=== PATIENT | female | born 1930 | race Caucasian/White ===

== ENCOUNTER 2019-03-14 13:02 | Emergency (ER) | payer MEDICARE ==
--- NOTE | 2019-03-14 13:18 | EDM.PDOC ---
ED HPI GENERAL MEDICAL PROBLEM - General Stated Complaint: POSS PNEUMONIA Time Seen by Provider: 03/14/19 13:14 Source of Information: Reports: Patient History Limitations: Reports: No Limitations - History of Present Illness INITIAL COMMENTS - FREE TEXT/NARRATIVE: c/o L rib pain pt with nonproductive cough x 2d, no fever, had L rib pain today, thinks she may have pneumonia h/o pneumonia x 5, last time 3y ago visiting RN came to house today and heard crackles at [place] (none here) and recommended she come to ED, no temp at home pt says she has "serious" heart problems, cannot name them, says she is on 4 cardiac meds does not get flu vax, never had Pneumovax never smoked, a smoker lives alone, , [place] [address], here with dtr L lat chest, rib/back Pain Score (Numeric/FACES): 4 - Related Data Allergies Allergy/AdvReac Type Severity Reaction Status Date / Time No Known Allergies Allergy Verified 10/15/16 10:17 Home Meds: Home Meds Acetaminophen [Tylenol Extra Strength] 500 mg PO BID 03/14/19 [History] Ascorbic Acid [Vitamin C] 1,000 mg PO BEDTIME 03/14/19 [History] Cholecalciferol (Vitamin D3) [Vitamin D3] 400 unit PO BEDTIME 03/14/19 [History] Clindamycin HCl [Cleocin] 600 mg PO ASDIRECTED PRN 03/14/19 [History] Docusate Sodium 100 mg PO BID PRN 03/14/19 [History] Fluocinolone Acetonide 4 drop TOP ASDIRECTED PRN 03/14/19 [History] Furosemide [Lasix] 40 mg PO DAILY 03/14/19 [History] Isosorbide Mononitrate [Imdur] 30 mg PO BID 03/14/19 [History] Lisinopril [Zestril] 10 mg PO DAILY 03/14/19 [History] Metoprolol Succinate [Toprol XL 100mg] 100 mg PO BEDTIME 03/14/19 [History] Multivitamin [Daily Zachray] 1 tab PO DAILY 03/14/19 [History] Nitrofurantoin Macrocrystal [Macrodantin] 50 mg PO MOWEFR@2100 03/14/19 [History ] Nitroglycerin 0.4 mg SL Q5M PRN 03/14/19 [History] Peppermint Oil Cap 1 cap PO BEDTIME 03/14/19 [History] Spironolactone [Aldactone] 12.5 mg PO DAILY 03/14/19 [History] Triamcinolone Acetonide [Triamcinolone Acetonide 0.1% Crm] 1 applic TOP BID PRN 03/14/19 [History] Ubidecarenone [Coenzyme Q10] 100 mg PO QPM 03/14/19 [History] Warfarin [Coumadin] 2.5 mg PO FR 03/14/19 [History] Warfarin [Coumadin] 5 mg PO SUMOTUWETHSA 03/14/19 [History] ED ROS GENERAL - Review of Systems Review Of Systems: See Below Constitutional: Reports: No Symptoms HEENT: Reports: No Symptoms Respiratory: Reports: Shortness of Breath, Cough Cardiovascular: Reports: Other (L rib pain) Endocrine: Reports: No Symptoms GI/Abdominal: Reports: No Symptoms : Reports: No Symptoms Musculoskeletal: Reports: No Symptoms Skin: Reports: No Symptoms Neurological: Reports: No Symptoms Psychiatric: Reports: No Symptoms Hematologic/Lymphatic: Reports: No Symptoms Immunologic: Reports: No Symptoms ED EXAM, GENERAL - Physical Exam Exam: See Below Exam Limited By: No Limitations General Appearance: Alert, WD/WN, No Apparent Distress, Other (alert, conversant , talkative, nonill, no cough, no dyspnea) Eye Exam: Bilateral Eye: EOMI Ears: Normal External Exam, Hearing Grossly Normal Nose: Normal Inspection, Normal Mucosa, No Blood Throat/Mouth: Normal Inspection, Normal Lips, Normal Voice, No Airway Compromise Head: Atraumatic, Normocephalic Neck: Normal Inspection, Supple, Non-Tender, Full Range of Motion. No: Lymphadenopathy (R), Lymphadenopathy (L) Respiratory/Chest: No Respiratory Distress, Lungs Clear, Normal Breath Sounds, No Accessory Muscle Use, Chest Non-Tender, Other (no definite tender at rib 10 in L AAL where pt indicates discomfort, no rales there either) Cardiovascular: Normal Peripheral Pulses, Regular Rate, Rhythm, No Edema, No Gallop, No JVD, No Murmur, No Rub, JVD GI/Abdominal: Normal Bowel Sounds, Soft, Non-Tender, No Distention Back Exam: Normal Inspection, Full Range of Motion. No: CVA Tenderness (R), CVA Tenderness (L) Extremities: Normal Inspection, Normal Range of Motion, Non-Tender, No Pedal Edema, Normal Capillary Refill Neurological: Alert, Oriented, CN II-XII Intact, Normal Cognition, No Motor/ Sensory Deficits Psychiatric: Normal Affect, Normal Mood Skin Exam: Warm, Dry, Intact, Normal Color, No Rash Lymphatic: No Adenopathy Course - Vital Signs Last Recorded V/S: Last Vital Signs Temp 36.6 C 03/14/19 15:20 Pulse 87 03/14/19 15:20 Resp 18 03/14/19 15:20 BP 121/76 03/14/19 15:20 Pulse Ox 98 03/14/19 15:20 - Orders/Labs/Meds Orders: Active Orders 24 hr Category Date Time Status EKG Documentation Completion [RC] ASDIRECTED Care 03/14/19 13:12 Active Abdomen 2V AP Flat Upright [CR] Stat Exams 03/14/19 13:10 Taken Chest 2V [CR] Stat Exams 03/14/19 13:10 Taken EKG 12 Lead [EK] Routine Ther 03/14/19 13:10 Ordered Labs: Laboratory Tests 03/14/19 03/14/19 03/14/19 Range/Units 13:25 13:25 13:25 WBC 5.2 (4.5-12.0) X10-3/uL RBC 3.91 (3.23-5.20) x10(6)uL Hgb 12.6 (11.5-15.5) g/dL Hct 37.1 (30.0-51.3) % MCV 95.0 (80-96) fL MCH 32.2 (27.7-33.6) pg MCHC 33.8 (32.2-35.4) g/dL RDW 12.0 (11.5-15.5) % Plt Count 170 (125-369) X10(3)uL MPV 9.6 (7.4-10.4) fL Neut % (Auto) 57.9 (46-82) % Lymph % (Auto) 25.3 (13-37) % Ware % (Auto) 11.1 (4-12) % Eos % (Auto) 4 (1.0-5.0) % Baso % (Auto) 2 (0-2) % Neut # (Auto) 3.0 (1.6-8.3) # Lymph # (Auto) 1.3 (0.6-5.0) # Ware # (Auto) 0.6 (0.0-1.3) # Eos # (Auto) 0.2 (0.0-0.8) # Baso # (Auto) 0.1 (0.0-0.2) # PT (8.7-11.1) INR (0.89-1.13) Sodium 131 L (135-145) mmol/L Potassium 5.5 H (3.5-5.3) mmol/L Chloride 92 L D (100-110) mmol/L Carbon Dioxide 33 H (21-32) mmol/L BUN 36 H D (7-18) mg/dL Creatinine 1.5 H (0.55-1.02) mg/dL Est Cr Clr Drug Dosing TNP Estimated GFR (MDRD) 33 L (>60) BUN/Creatinine Ratio 24.0 H (9-20) Glucose 170 H (80-116) mg/dL Calcium 9.4 (8.6-10.2) mg/dL Total Bilirubin 0.4 (0.1-1.3) mg/dL AST 17 (5-25) IU/L ALT 17 (12-36) U/L Alkaline Phosphatase 56 (56-112) IU/L Troponin I < 0.017 L (<0.017-0.056) ng/mL C-Reactive Protein 2.4 H (0.5-0.9) mg/dL NT-Pro-B Natriuret Pep 3894 H* (<=450) pg/mL Total Protein 7.5 (6.0-8.0) g/dL Albumin 3.7 (3.2-4.6) g/dL Globulin 3.8 g/dL Albumin/Globulin Ratio 1.0 Lipase (73-393) U/L Urine Color (YELLOW) Urine Appearance (CLEAR) Urine pH (5.0-6.5) Ur Specific [place] (1.010-1.025) Urine Protein (NEGATIVE) mg/dL Urine Glucose (UA) (NORMAL) mg/dL Urine Ketones (NEGATIVE) mg/dL Urine Occult Blood (NEGATIVE) Urine Nitrite (NEGATIVE) Urine Bilirubin (NEGATIVE) Urine Urobilinogen (NEGATIVE) mg/dL Ur Leukocyte Esterase (NEGATIVE) Urine RBC (0-5) Urine WBC (0-5) Ur Squamous Epith Cells (NS,R,O) Urine Bacteria (NS) 03/14/19 03/14/19 03/14/19 Range/Units 13:25 13:25 15:12 WBC (4.5-12.0) X10-3/uL RBC (3.23-5.20) x10(6)uL Hgb (11.5-15.5) g/dL Hct (30.0-51.3) % MCV (80-96) fL MCH (27.7-33.6) pg MCHC (32.2-35.4) g/dL RDW (11.5-15.5) % Plt Count (125-369) X10(3)uL MPV (7.4-10.4) fL Neut % (Auto) (46-82) % Lymph % (Auto) (13-37) % Ware % (Auto) (4-12) % Eos % (Auto) (1.0-5.0) % Baso % (Auto) (0-2) % Neut # (Auto) (1.6-8.3) # Lymph # (Auto) (0.6-5.0) # Ware # (Auto) (0.0-1.3) # Eos # (Auto) (0.0-0.8) # Baso # (Auto) (0.0-0.2) # PT 51.5 H* (8.7-11.1) INR 5.40 H* (0.89-1.13) Sodium (135-145) mmol/L Potassium (3.5-5.3) mmol/L Chloride (100-110) mmol/L Carbon Dioxide (21-32) mmol/L BUN (7-18) mg/dL Creatinine (0.55-1.02) mg/dL Est Cr Clr Drug Dosing Estimated GFR (MDRD) (>60) BUN/Creatinine Ratio (9-20) Glucose (80-116) mg/dL Calcium (8.6-10.2) mg/dL Total Bilirubin (0.1-1.3) mg/dL AST (5-25) IU/L ALT (12-36) U/L Alkaline Phosphatase (56-112) IU/L Troponin I (<0.017-0.056) ng/mL C-Reactive Protein (0.5-0.9) mg/dL NT-Pro-B Natriuret Pep (<=450) pg/mL Total Protein (6.0-8.0) g/dL Albumin (3.2-4.6) g/dL Globulin g/dL Albumin/Globulin Ratio Lipase 243 (73-393) U/L Urine Color Yellow (YELLOW) Urine Appearance Clear (CLEAR) Urine pH 7.0 H (5.0-6.5) Ur Specific [place] 1.010 (1.010-1.025) Urine Protein Negative (NEGATIVE) mg/dL Urine Glucose (UA) Normal (NORMAL) mg/dL Urine Ketones Negative (NEGATIVE) mg/dL Urine Occult Blood Negative (NEGATIVE) Urine Nitrite Negative (NEGATIVE) Urine Bilirubin Negative (NEGATIVE) Urine Urobilinogen Normal (NEGATIVE) mg/dL Ur Leukocyte Esterase Negative (NEGATIVE) Urine RBC 0-5 (0-5) Urine WBC 0-5 (0-5) Ur Squamous Epith Cells Few H (NS,R,O) Urine Bacteria Rare H (NS) - Re-Assessments/Exams Free Text/Narrative Re-Assessment/Exam: 03/14/19 16:31 exam unremarkable, pt with new inc'd BUN/creat c/w dehydration, however pt states her weight has not changed (which is somewhat doubtful where this is true ) on 2 diuretics, will stop the furosemide for 2d and continue the spironolactone also on lisinopril which may need to be adjusted altho further adjustments in diuretics may be sufficient pending recommendations of PCP PCP Dr Ryder is out of office for 5d, d/w Dr Solano who left a note on the desk of Dr Aleksey Chauhan RN offered to make appointment with Dr Ryder in 5-6d, however pt declined saying "I just call him up whenever I want" I offered a cough suppressant, however pt declined that as well mild increase of CRP of uncertain clinical sig, no clinical evidence of infection Departure - Departure Time of Disposition: 16:23 Disposition: Home, Self-Care 01 Condition: Good Clinical Impression: Chest wall muscle strain, Acute renal insufficiency, Elevated brain natriuretic peptide (BNP) level, Elevated INR, Elevated C-reactive protein - Discharge Information *PRESCRIPTION DRUG MONITORING PROGRAM REVIEWED*: Not Applicable *COPY OF PRESCRIPTION DRUG MONITORING REPORT IN PATIENT SAVITA: Not Applicable Referrals: Jacky Ryder MD [Primary Care Provider] - Additional Instructions: Stop the furosemide for 2 days. Use heat for 10 minutes to chest wall every 2 hours as needed while awake. Take acetaminophen 500 mg 2 tabs 4 times a day for [address] Ryder in 5-6 days. Return to Emergency Department if feeling worse. Sepsis Event Note - Focused Exam Vital Signs: Vital Signs Temp Pulse Resp BP Pulse Ox 03/14/19 15:20 36.6 C 87 18 121/76 98 03/14/19 14:00 79 20 139/95 H 97 03/14/19 13:30 36.3 C 83 24 H 152/109 H 100 Date Exam was Performed: 03/14/19 Time Exam was Performed: 16:23 - My Orders Last 24 Hours: My Active Orders 03/14/19 13:10 Abdomen 2V AP Flat Upright [CR] Stat Chest 2V [CR] Stat EKG 12 Lead [EK] Routine 03/14/19 13:12 EKG Documentation Completion [RC] ASDIRECTED - Assessment/Plan Last 24 Hours: My Active Orders 03/14/19 13:10 Abdomen 2V AP Flat Upright [CR] Stat Chest 2V [CR] Stat EKG 12 Lead [EK] Routine 03/14/19 13:12 EKG Documentation Completion [RC] ASDIRECTED
== END 2019-03-14 16:30 | disposition home or self-care (01) ==
LOC: FB.ED 13:02
DX: S29.011A Strain of muscle and tendon of front wall of thorax, initial encounter (principal); N28.9 Disorder of kidney and ureter, unspecified; R79.1 Abnormal coagulation profile; R79.82 Elevated C-reactive protein (CRP); R79.89 Other specified abnormal findings of blood chemistry; Z79.899 Other long term (current) drug therapy; X58.XXXA Exposure to other specified factors, initial encounter
CPT/HCPCS: 36415; 71046; 74019; 80053; 81001; 83690; 83880; 84484; 85025; 85610; 86140; 87804; 87804-59; 93005; 93010; 99284; 99284-25

== ENCOUNTER 2019-10-25 12:09 | Inpatient (IN) | payer MEDICARE ==
[2019-10-25] MEDS ORDERED: Diltiazem 25 MG/5 ML SDV IVPUSH ONE (14:25)
[2019-10-25] MEDS ORDERED: Aspirin 81 MG Tab.Chew PO ONE (14:25)
[2019-10-25] MEDS ORDERED: Morphine 2 MG/ML SYRINGE IVPUSH ONE (14:26)
--- NOTE | 2019-10-25 14:40 | CR ---
INDICATION: Chest pain, Parkinson's, shortness of breath. CHEST ONE VIEW: A single portable AP upright view of the chest was obtained 10/25/19 and compared with 05/20/10 and 03/14/19. The heart is enlarged, the aorta is tortuous with calcification. Overlying EKG leads and snaps are noted. Pulmonary vasculature appears slightly prominent raising question of a mild degree of CHF. Heavy markings at the lung bases due to a poor inspiration, at least in part, make it difficult to exclude minimal patchy bronchopneumonia. However, no consolidating pneumonia or definite effusion was seen. IMPRESSION: 1. ASHD with cardiomegaly with suggestion of mild or early CHF. 2. Difficult to entirely exclude patchy bronchopneumonia at the lung bases. 3. Exogenous obesity. MTDD
[2019-10-25] MEDS ORDERED: Diatrizoate Meglumine/Diatrizoate Sodium 37% 30 ML Bottle PO ONE (15:41)
--- NOTE | 2019-10-25 15:43 | EDM.PDOC ---
ED HPI GENERAL MEDICAL PROBLEM - General Chief Complaint: Cardiovascular Problem Time Seen by Provider: 10/25/19 14:55 Source of Information: Reports: Patient History Limitations: Reports: No Limitations - History of Present Illness INITIAL COMMENTS - FREE TEXT/NARRATIVE: Patient presented to the ED because of chest pain,nausea and palpitations for the past 4 days. She also c/o LLQ and RLQ pain,6/10, with occasional nausea but no vomiting and she is constipated for 2 days now. There is no cough/cold symptoms, no fever or chills. left chest Pain Score (Numeric/FACES): 6 Abdomen Pain Score (Numeric/FACES): 5 Back Pain Score (Numeric/FACES): 5 - Related Data Allergies Allergy/AdvReac Type Severity Reaction Status Date / Time Penicillins Allergy Rash Verified 10/25/19 19:22 Sulfa (Sulfonamide Allergy Rash Verified 10/25/19 19:22 Antibiotics) Home Meds: Home Meds Acetaminophen [Tylenol Extra Strength] 500 mg PO BID 03/14/19 [History] Docusate Sodium 100 mg PO BID PRN 03/14/19 [History] Fluocinolone Acetonide 4 drop TOP ASDIRECTED PRN 03/14/19 [History] Furosemide [Lasix] 40 mg PO DAILY 03/14/19 [History] Isosorbide Mononitrate [Imdur] 90 mg PO QAM 03/14/19 [History] Metoprolol Succinate [Toprol XL 100mg] 100 mg PO BEDTIME 03/14/19 [History] Multivitamin [Daily Zachary] 1 tab PO DAILY 03/14/19 [History] Nitroglycerin 0.4 mg SL Q5M PRN 03/14/19 [History] Peppermint Oil Cap 1 cap PO BEDTIME 03/14/19 [History] Triamcinolone Acetonide [Triamcinolone Acetonide 0.1% Crm] 1 applic TOP BID PRN 03/14/19 [History] Ubidecarenone [Coenzyme Q10] 100 mg PO DAILY 03/14/19 [History] Warfarin [Coumadin] 5 mg PO QAM 03/14/19 [History] lisinopriL [Zestril] 10 mg PO DAILY 03/14/19 [History] nitrofurantoin macrocrystaL [Macrodantin] 50 mg PO MOWEFR@2100 12/31/19 [History] Mv-Mn/Iron/Folic Acid/Herb 190 [Vitamin D3 Complete Caplet] 1 tab PO DAILY 10/25/19 [History] Past Medical History HEENT History: Reports: Glaucoma, Macular Degeneration Cardiovascular History: Reports: Afib, Heart Failure, Hypertension, [place], Stents Respiratory History: Reports: Pneumonia, Recurrent Gastrointestinal History: Reports: Diverticulosis Genitourinary History: Reports: None [employer] History: Reports: Other [employer] History: Musculoskeletal History: Reports: Arthritis Neurological History: Reports: Concussion, CVA, Migraines, Parkinson's, Vertigo Other Neuro History: CVA with L sided weakness Psychiatric History: Reports: Anxiety, Depression Endocrine/Metabolic History: Reports: Diabetes, Type II, Obesity/BMI 30+ Hematologic History: Reports: Anticoagulation Therapy - Infectious Disease History Infectious Disease History: Reports: Shingles - Past Surgical History HEENT Surgical History: Reports: Cataract Surgery Other HEENT Surgeries/Procedures: bilat cataract Cardiovascular Surgical History: Reports: Coronary Artery Stent GI Surgical History: Reports: Colonoscopy, Other (See Below) Other GI Surgeries/Procedures: exp lap Female Surgical History: Reports: Hysterectomy Social & Family History - Family History Family Medical History: Noncontributory - Caffeine Use Caffeine Use: Reports: Coffee, Soda ED ROS GENERAL - Review of Systems Review Of Systems: See Below Constitutional: Reports: No Symptoms HEENT: Reports: No Symptoms Respiratory: Reports: No Symptoms Cardiovascular: Reports: Chest Pain, Palpitations. Denies: Lightheadedness, Orthopnea Endocrine: Reports: No Symptoms GI/Abdominal: Reports: Constipation, Nausea. Denies: Diarrhea, Vomiting : Reports: No Symptoms Musculoskeletal: Reports: No Symptoms Skin: Reports: No Symptoms Neurological: Reports: No Symptoms Psychiatric: Reports: No Symptoms ED EXAM, GENERAL - Physical Exam Exam: See Below Exam Limited By: No Limitations General Appearance: Alert, No Apparent Distress Eye Exam: Bilateral Eye: PERRL Ears: Normal External Exam Nose: Normal Inspection Throat/Mouth: Normal Inspection Head: Atraumatic, Normocephalic Neck: Normal Inspection, Supple, Non-Tender Respiratory/Chest: No Respiratory Distress, Lungs Clear, Normal Breath Sounds Cardiovascular: Normal Peripheral Pulses, Regular Rate, Rhythm, No Edema, No Gallop, No JVD, No Murmur Back Exam: Normal Inspection, Full Range of Motion Extremities: Normal Inspection, Normal Range of Motion, Non-Tender Neurological: Alert, Oriented, CN II-XII Intact, Normal Cognition, Normal Gait, Normal Reflexes, No Motor/Sensory Deficits Psychiatric: Normal Affect, Normal Mood Course - Vital Signs Text/Narrative:: Labs/EKG/CXR/Ct abs/pelvis was discussed with patient and verbalized full understanding EKG-AFIB/A FLUTTER with RVR Cardizem 25 mg IV x1 Morphine 2 mg IV x1 Lasix 40 mg IV Zaroxolyn 2.5 mg po x1 Rocephine 1 gm IV x1 Flagyl 500 mg IV x1 Last Recorded V/S: Last Vital Signs Temp 36.4 C 10/26/19 00:00 Pulse 60 10/26/19 00:00 Resp 18 10/26/19 00:00 BP 135/87 10/26/19 00:00 Pulse Ox 99 10/26/19 00:00 - Orders/Labs/Meds Orders: Active Orders 24 hr Category Date Time Status Patient Status [ADT] Routine ADT 10/25/19 18:05 Active Cardiac Monitoring [RC] CONTINUOUS Care 10/25/19 18:11 Active Intake and Output [RC] 06,14,22 Care 10/25/19 18:11 Active Oxygen Therapy [RC] PRN Care 10/25/19 18:05 Active Pulse Oximetry [RC] CONTINUOUS Care 10/25/19 18:11 Active Vital Signs [RC] 00,04,08,12,16,20 Care 10/25/19 18:05 Active Heart Healthy Diet [DIET] Diet 10/25/19 Dinner Ordered BASIC METABOLIC PANEL,BMP [CHEM] AM Lab 10/26/19 05:11 Ordered CBC WITH AUTO DIFF [HEME] AM Lab 10/26/19 05:11 Ordered INR,PT,PROTHROMBIN TIME [COAG] AM Lab 10/26/19 05:11 Ordered Ondansetron [Zofran] Med 10/25/19 18:04 Active 4 mg IV Q4H PRN Sodium Chloride 0.9% [Saline Flush] Med 10/25/19 13:13 Active 10 ml FLUSH ASDIRECTED PRN bisacodyL [Dulcolax] Med 10/25/19 18:04 Active 5 mg PO DAILY PRN Saline Lock Insert [OM.PC] Routine Oth 10/25/19 13:13 Ordered Resuscitation Status Routine Resus Stat 10/25/19 18:04 Ordered EKG 12 Lead [EK] Routine Ther 10/25/19 12:19 Ordered Medication Orders Acetaminophen (Tylenol Extra Strength) 500 mg PO BID [facility] Last Admin: 10/25/19 20:29 Dose: 500 mg Documented by: GARCIA Ascorbic Acid (Vitamin C) 1,000 mg PO BEDTIME [facility] Last Admin: 10/25/19 20:28 Dose: 1,000 mg Documented by: GARCIA Bisacodyl (Dulcolax) 5 mg PO DAILY PRN PRN Reason: Constipation Ceftriaxone Sodium (Rocephin) 1 gm IVPUSH Q24H [facility] Last Admin: 10/25/19 19:19 Dose: 1 gm Documented by: RICHARDSON Coenzyme Q10 (Coenzyme Q10) 100 mg PO QPM IFTIKHAR Docusate Sodium (Colace) 100 mg PO BID PRN PRN Reason: Constipation Furosemide (Lasix) 40 mg IVPUSH BID [facility] Last Admin: 10/25/19 19:19 Dose: 40 mg Documented by: RICHARDSON Metronidazole 500 mg/ Premix 100 mls @ 100 mls/hr IV Q8H [facility] Last Admin: 10/25/19 19:19 Dose: 100 mls/hr Documented by: RICHARDSON Isosorbide Mononitrate (Imdur) 30 mg PO BID [facility] Metoprolol Succinate (Toprol Xl) 100 mg PO BEDTIME [facility] Last Admin: 10/25/19 20:29 Dose: 100 mg Documented by: GARCIA Multivitamins/Minerals/Vitamin C (Tab-A-Zachary) 1 tab PO DAILY [facility] Nitroglycerin (Nitrostat) 0.4 mg SL Q5M PRN PRN Reason: Chest Pain Non-Formulary Medication (Cholecalciferol (Vitamin D3) [Vitamin D3]) 400 unit PO BEDTIME IFTIKHAR Non-Formulary Medication (Fluocinolone Acetonide [Fluocinolone Acetonide]) 4 drop TOP ASDIRECTED PRN PRN Reason: Dizziness Non-Formulary Medication (Peppermint Oil Cap) 1 cap PO BEDTIME [facility] Ondansetron HCl (Zofran) 4 mg IV Q4H PRN PRN Reason: Nausea/Vomiting Sodium Chloride (Saline Flush) 10 ml FLUSH ASDIRECTED PRN PRN Reason: Keep Vein Open Spironolactone (Aldactone) 12.5 mg PO DAILY IFTIKHAR Triamcinolone Acetonide (Triamcinolone Acetonide 0.1% Crm) 0 gm TOP BID PRN PRN Reason: Rash Warfarin Sodium (Coumadin) 2.5 mg PO FR IFTIKHAR Warfarin Sodium (Coumadin) 5 mg PO SUMOTUWETHSA [facility] Labs: Laboratory Tests 10/25/19 10/25/19 10/25/19 Range/Units 12:30 12:30 12:30 WBC 6.3 (4.5-12.0) X10-3/uL RBC 3.86 (3.23-5.20) x10(6)uL Hgb 12.2 (11.5-15.5) g/dL Hct 37.2 (30.0-51.3) % MCV 96.3 H (80-96) fL MCH 31.6 (27.7-33.6) pg MCHC 32.8 (32.2-35.4) g/dL RDW 12.3 (11.5-15.5) % Plt Count 156 (125-369) X10(3)uL MPV 10.1 (7.4-10.4) fL Neut % (Auto) 72.4 (46-82) % Lymph % (Auto) 15.4 (13-37) % [place] % (Auto) 8.4 (4-12) % Eos % (Auto) 2 (1.0-5.0) % Baso % (Auto) 2 (0-2) % Neut # (Auto) 4.6 (1.6-8.3) # Lymph # (Auto) 1.0 (0.6-5.0) # [place] # (Auto) 0.5 (0.0-1.3) # Eos # (Auto) 0.1 (0.0-0.8) # Baso # (Auto) 0.1 (0.0-0.2) # PT 32.1 H (9.0-11.1) sec INR 3.21 H (1.00-1.24) Sodium 135 (135-145) mmol/L Potassium 4.5 D (3.5-5.3) mmol/L Chloride 97 L D (100-110) mmol/L Carbon Dioxide 28 (21-32) mmol/L BUN 15 D (7-18) mg/dL Creatinine 1.3 H (0.55-1.02) mg/dL Est Cr Clr Drug Dosing TNP Estimated GFR (MDRD) 39 L (>60) BUN/Creatinine Ratio 11.5 (9-20) Glucose 380 H D (80-116) mg/dL Calcium 8.7 (8.6-10.2) mg/dL Total Bilirubin 0.6 (0.1-1.3) mg/dL AST 21 D (5-25) IU/L ALT 21 D (12-36) U/L Alkaline Phosphatase 69 (56-112) IU/L Troponin I (4.0-60.3) pg/mL NT-Pro-B Natriuret Pep (<=450) pg/mL Total Protein 7.2 (6.0-8.0) g/dL Albumin 3.5 (3.2-4.6) g/dL Globulin 3.7 g/dL Albumin/Globulin Ratio 1.0 Urine Color (YELLOW) Urine Appearance (CLEAR) Urine pH (5.0-6.5) Ur Specific [employer] (1.010-1.025) Urine Protein (NEGATIVE) mg/dL Urine Glucose (UA) (NORMAL) mg/dL Urine Ketones (NEGATIVE) mg/dL Urine Occult Blood (NEGATIVE) Urine Nitrite (NEGATIVE) Urine Bilirubin (NEGATIVE) Urine Urobilinogen (NEGATIVE) mg/dL Ur Leukocyte Esterase (NEGATIVE) Urine RBC (0-5) Urine WBC (0-5) Ur Squamous Epith Cells (NS,R,O) Urine Bacteria (NS) 10/25/19 10/25/19 Range/Units 12:30 13:28 WBC (4.5-12.0) X10-3/uL RBC (3.23-5.20) x10(6)uL Hgb (11.5-15.5) g/dL Hct (30.0-51.3) % MCV (80-96) fL MCH (27.7-33.6) pg MCHC (32.2-35.4) g/dL RDW (11.5-15.5) % Plt Count (125-369) X10(3)uL MPV (7.4-10.4) fL Neut % (Auto) (46-82) % Lymph % (Auto) (13-37) % [place] % (Auto) (4-12) % Eos % (Auto) (1.0-5.0) % Baso % (Auto) (0-2) % Neut # (Auto) (1.6-8.3) # Lymph # (Auto) (0.6-5.0) # Laurens # (Auto) (0.0-1.3) # Eos # (Auto) (0.0-0.8) # Baso # (Auto) (0.0-0.2) # PT (9.0-11.1) sec INR (1.00-1.24) Sodium (135-145) mmol/L Potassium (3.5-5.3) mmol/L Chloride (100-110) mmol/L Carbon Dioxide (21-32) mmol/L BUN (7-18) mg/dL Creatinine (0.55-1.02) mg/dL Est Cr Clr Drug Dosing Estimated GFR (MDRD) (>60) BUN/Creatinine Ratio (9-20) Glucose (80-116) mg/dL Calcium (8.6-10.2) mg/dL Total Bilirubin (0.1-1.3) mg/dL AST (5-25) IU/L ALT (12-36) U/L Alkaline Phosphatase (56-112) IU/L Troponin I 28.7 (4.0-60.3) pg/mL NT-Pro-B Natriuret Pep 7980 H* (<=450) pg/mL Total Protein (6.0-8.0) g/dL Albumin (3.2-4.6) g/dL Globulin g/dL Albumin/Globulin Ratio Urine Color Yellow (YELLOW) Urine Appearance Clear (CLEAR) Urine pH 5.0 (5.0-6.5) Ur Specific [employer] 1.015 (1.010-1.025) Urine Protein Negative (NEGATIVE) mg/dL Urine Glucose (UA) >1000 H (NORMAL) mg/dL Urine Ketones Negative (NEGATIVE) mg/dL Urine Occult Blood Trace (NEGATIVE) Urine Nitrite Negative (NEGATIVE) Urine Bilirubin Negative (NEGATIVE) Urine Urobilinogen Normal (NEGATIVE) mg/dL Ur Leukocyte Esterase Negative (NEGATIVE) Urine RBC 0-5 (0-5) Urine WBC 0-5 (0-5) Ur Squamous Epith Cells Moderate H (NS,R,O) Urine Bacteria Moderate H (NS) Meds: Medications Generic Name Dose Route Start Last Admin Trade Name Freq PRN Reason Stop Dose Admin Acetaminophen 500 mg 10/25/19 21:00 10/25/19 20:29 Tylenol Extra Strength PO 500 mg BID IFTIKHAR Administration Ascorbic Acid 1,000 mg 10/25/19 21:00 10/25/19 20:28 Vitamin C PO 1,000 mg BEDTIME IFTIKHAR Administration Bisacodyl 5 mg 10/25/19 18:04 Dulcolax PO DAILY PRN Constipation Ceftriaxone Sodium 1 gm 10/25/19 18:30 10/25/19 19:19 Rocephin IVPUSH 1 gm Q24H IFTIKHAR Administration Coenzyme Q10 100 mg 10/26/19 17:00 Coenzyme Q10 PO QPM IFTIKHAR Docusate Sodium 100 mg 10/25/19 18:15 Colace PO BID PRN Constipation Furosemide 40 mg 10/25/19 21:00 10/25/19 19:19 Lasix IVPUSH 40 mg BID [facility] Administration Metronidazole 500 mg/ Premix 100 mls @ 100 mls/hr 10/25/19 18:30 10/25/19 19:19 IV 100 mls/hr Q8H IFTIKHAR Administration Isosorbide Mononitrate 30 mg 10/25/19 21:00 Imdur PO BID [facility] Metoprolol Succinate 100 mg 10/25/19 21:00 10/25/19 20:29 Toprol Xl PO 100 mg BEDTIME IFTIKHAR Administration Multivitamins/Minerals/Vitamin C 1 tab 10/26/19 09:00 Tab-A-Zachary PO DAILY [facility] Nitroglycerin 0.4 mg 10/25/19 18:15 Nitrostat SL Q5M PRN Chest Pain Non-Formulary Medication 400 unit 10/25/19 21:00 Cholecalciferol (Vitamin D3) [Vitamin D3] PO BEDTIME IFTIKHAR Non-Formulary Medication 4 drop 10/25/19 18:15 Fluocinolone Acetonide [Fluocinolone Acetonide] TOP ASDIRECTED PRN Dizziness Non-Formulary Medication 1 cap 10/25/19 21:00 Peppermint Oil Cap PO BEDTIME [facility] Ondansetron HCl 4 mg 10/25/19 18:04 Zofran IV Q4H PRN Nausea/Vomiting Sodium Chloride 10 ml 10/25/19 13:13 Saline Flush FLUSH ASDIRECTED PRN Keep Vein Open Spironolactone 12.5 mg 10/26/19 09:00 Aldactone PO DAILY IFTIKHAR Triamcinolone Acetonide 0 gm 10/25/19 18:15 Triamcinolone Acetonide 0.1% Crm TOP BID PRN Rash Warfarin Sodium 2.5 mg 10/27/19 18:15 Coumadin PO FR IFTIKHAR Warfarin Sodium 5 mg 10/25/19 18:15 Coumadin PO SUMOTUWETHSA IFTIKHAR Discontinued Medications Generic Name Dose Route Start Last Admin Trade Name Freq PRN Reason Stop Dose Admin Aspirin 324 mg 10/25/19 14:25 10/25/19 14:54 Aspirin PO 10/25/19 14:26 324 mg ONETIME ONE Administration Diatrizoate Meglum/Diatrizoate Sod 30 ml 10/25/19 15:41 10/25/19 22:37 Gastrografin 37% PO 10/25/19 15:42 Not Given . DIRECTED ONE Diltiazem HCl 25 mg 10/25/19 14:25 10/25/19 14:48 Diltiazem IVPUSH 10/25/19 14:26 25 mg ONETIME ONE Administration Metolazone 2.5 mg 10/25/19 18:20 10/25/19 20:33 Zaroxolyn PO 10/25/19 18:21 2.5 mg ONETIME ONE Administration Metolazone Confirm 10/25/19 20:31 10/25/19 20:34 Zaroxolyn Administered 10/25/19 20:32 Not Given Dose 2.5 mg .ROUTE .STK-MED ONE Morphine Sulfate 2 mg 10/25/19 14:26 10/25/19 14:48 Morphine IVPUSH 10/25/19 14:27 2 mg ONETIME ONE Administration Departure - Departure Time of Disposition: 16:00 Disposition: Admitted As Inpatient 67 Condition: Good Clinical Impression: Chest pain, Afib, Diverticulitis - My Orders Last 24 Hours: My Active Orders 10/25/19 12:19 EKG 12 Lead [EK] Routine 10/25/19 13:13 Sodium Chloride 0.9% [Saline Flush] 10 ml FLUSH ASDIRECTED PRN Saline Lock Insert [OM.PC] Routine 10/25/19 Dinner Heart Healthy Diet [DIET] 10/25/19 18:04 Ondansetron [Zofran] 4 mg IV Q4H PRN bisacodyL [Dulcolax] 5 mg PO DAILY PRN Resuscitation Status Routine 10/25/19 18:05 Patient Status [ADT] Routine Oxygen Therapy [RC] PRN Vital Signs [RC] 00,04,08,12,16,20 10/25/19 18:11 Cardiac Monitoring [RC] CONTINUOUS Intake and Output [RC] 06,14,22 Pulse Oximetry [RC] CONTINUOUS 10/26/19 05:11 BASIC METABOLIC PANEL,BMP [CHEM] AM CBC WITH AUTO DIFF [HEME] AM INR,PT,PROTHROMBIN TIME [COAG] AM - Assessment/Plan Last 24 Hours: My Active Orders 10/25/19 12:19 EKG 12 Lead [EK] Routine 10/25/19 13:13 Sodium Chloride 0.9% [Saline Flush] 10 ml FLUSH ASDIRECTED PRN Saline Lock Insert [OM.PC] Routine 10/25/19 Dinner Heart Healthy Diet [DIET] 10/25/19 18:04 Ondansetron [Zofran] 4 mg IV Q4H PRN bisacodyL [Dulcolax] 5 mg PO DAILY PRN Resuscitation Status Routine 10/25/19 18:05 Patient Status [ADT] Routine Oxygen Therapy [RC] PRN Vital Signs [RC] 00,04,08,12,16,20 10/25/19 18:11 Cardiac Monitoring [RC] CONTINUOUS Intake and Output [RC] 06,14,22 Pulse Oximetry [RC] CONTINUOUS 10/26/19 05:11 BASIC METABOLIC PANEL,BMP [CHEM] AM CBC WITH AUTO DIFF [HEME] AM INR,PT,PROTHROMBIN TIME [COAG] AM
--- NOTE | 2019-10-25 17:53 | CT ---
INDICATION: Left lower and right lower quadrant pain. CT ABDOMEN AND PELVIS WITHOUT IV CONTRAST BUT WITH ORAL CONTRAST: Spiral 3.75 mm axial sections were obtained through the abdomen with oral contrast only 10/25/19 and compared with 10/15/16 CT abdomen and pelvis with oral and IV contrast. The heart is enlarged. No pericardial effusion was seen. There are bilateral pleural effusions, large on the right, moderate on the left with heavy markings at the lung bases which may be on the basis of pneumonia and pleuritis, but could be related to CHF with pleural effusions - correlate clinically. The liver and spleen were unremarkable. The gallbladder is absent compatible with history of its removal. The adrenal glands appeared grossly normal. The pancreas is very minimal in size as previously. The common bile duct was not enlarged. Calcifications are noted in the abdominal aorta, splenic artery, iliac and femoral arteries. There is mild renal fascial thickening with some irregularity of the renal cortices compatible with renal cortical scarring. No evidence of obstructive uropathy was identified. No definite mass of the kidneys was identified. No retroperitoneal masses were demonstrated. The appendix and uterus are absent compatible with their resections. Diverticulosis of the descending, to a lesser extent transverse, and to a much greater extent sigmoid colon is noted without definitive evidence of diverticulitis. No evidence of free air or bowel obstruction was seen. The urinary bladder appeared grossly normal. There is again noted some mild thickening of the gastric antral wall of questionable significance. Small umbilical hernia including only fat is again noted. The patient's right and left lower abdominal pain is not definitely explained, although a mild or early diverticulitis is difficult to entirely exclude with this appearance. A [id number] dextroconcave scoliosis of the lumbar spine is again noted with hypertrophic degenerative changes and disk disease at L2-3, L4-5, L5-S1 again noted. There is some progression of hypertrophic changes at the L2-3 level. IMPRESSION: 1. Diverticulosis coli most notable at the sigmoid, but without definite evidence of diverticulitis. A mild or early diverticulitis is difficult to entirely exclude, especially in the area of the sigmoid colon. 2. 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 3. ASD. 4. ASHD with possible CHF and bilateral pleural effusions, question bibasilar pneumonia and pleuritis additionally. 5. Post hysterectomy, appendectomy, cholecystectomy. 6. Continued appearance of thickening of the wall of the gastric antrum of questionable significance. Report was called to Dr. Dee at 1515 hours. Total exam DLP was 1449.54 mGy-cm. MTDD
[2019-10-25] MEDS ORDERED: Ondansetron 4 MG/2 ML SDV IV PRN (18:04)
[2019-10-25] MEDS ORDERED: Bisacodyl 5 MG Tab PO PRN (18:04)
[2019-10-25] MEDS ORDERED: Triamcinolone Acetonide 0.1% Crm 15 GM Tube TOP PRN (18:15)
[2019-10-25] MEDS ORDERED: Docusate Sodium 100 MG Cap PO PRN (18:15)
[2019-10-25] MEDS ORDERED: Nitroglycerin 0.4 MG Tab.SL SL PRN (18:15)
[2019-10-25] MEDS ORDERED: FLUOCINOLONE ACETONIDE TOP PRN (18:15)
[2019-10-25] MEDS ORDERED: Warfarin 5 MG Tab PO SCH (18:15)
[2019-10-25] MEDS ORDERED: Metolazone 2.5 MG Tab PO ONE (18:20)
[2019-10-25] MEDS: cefTRIAXone 1 GM Vial IVPUSH SCH (19:19)
[2019-10-25] MEDS: Furosemide 40 MG/4 ML VIAL IVPUSH SCH (19:19)
[2019-10-25] MEDS: metroNIDAZOLE/Normal Saline 500 MG in Premix Bag 1 BAG IV SCH (19:19)
[2019-10-25] MEDS: Ascorbic Acid 500 MG Tab PO SCH (20:28)
[2019-10-25] MEDS: Metoprolol Succinate 100 MG Tab.ER PO SCH (20:29)
[2019-10-25] MEDS: Acetaminophen 500 MG Tab PO SCH (20:29)
[2019-10-25] MEDS ORDERED: Metolazone 2.5 MG Tab ONE (20:31)
[2019-10-25] MEDS ORDERED: Non-Formulary Medication 1 Each (Cholecalciferol (Vitamin D3) [Vitamin D3] 400 UNIT) PO SCH (21:00)
[2019-10-25] MEDS ORDERED: PEPPERMINT OIL PO SCH (21:00)
[2019-10-26] MEDS: Sodium Chloride 0.9% 10 ML Syringe FLUSH PRN ×5 (02:41→20:10)
[2019-10-26] MEDS: metroNIDAZOLE/Normal Saline 500 MG in Premix Bag 1 BAG IV SCH ×3 (02:41→18:51)
[2019-10-26] MEDS ORDERED: Warfarin Sliding Scale PO SCH (08:15)
[2019-10-26] MEDS ORDERED: Spironolactone 25 MG Tab PO SCH (09:00)
[2019-10-26] MEDS: Furosemide 40 MG/4 ML VIAL IVPUSH SCH ×2 (09:59→20:07)
[2019-10-26] MEDS: Acetaminophen 500 MG Tab PO SCH ×2 (09:59→20:06)
[2019-10-26] MEDS: Multivitamin Tab PO SCH (09:59)
--- NOTE | 2019-10-26 10:29 | PCM.HP.2 ---
H&P History of Present Illness - General Date of Service: 10/26/19 Admit Problem/Dx: Admission Diagnosis/Problem Admission Diagnosis/Problem Diverticulitis, Atrial fibrillation and flutter, CHF Source of Information: Patient, EMS Notes Reviewed, Family, Old Records - History of Present Illness Initial Comments - Free Text/Narative: Divina was admitted last evening for 4 day history of chest pain with palpitations, shortness of breath. She had no fevers, chills, cough, nausea or diarrhea but had nausea, lower abdominal pain with constipation x 2 days. Had a diarrhea stool this morning after taking stool softener for constipation. Still having some palpitations but no chest pain. She saw Dr Freeman, [facility] in regards to her Atrial fibrillation, CAD, CHF, on 08/28/2019, and she had called him for chest pain/shoulder pain on Oct 15, had instructions to increase her Imdur to 90 mg in am and 30 mg in the afternoon. She has been complaining of more weakness, not getting up as much per her sons, has [facility], [facility] Health, bath aide, housekeeping services through [facility]. Laura Roche RN with [facility] send communication that feels patient needs long-term due to her declining health since May. Divina also states that she was put on a Parkinson's medication but only took 1 pill as it made her heart race. She states she has had tremors since April but her sons stated that she has had for a few years, has worsening this year, some days she doesn't seem to have them. They do live locally but unsure how much they can help her if she would go home. She does have oxygen at home, 3L/min. ER course: was given Cardizem IV for Atrial fibrillation with RVR, heart rate now in 90s, morphine for pain, Lasix, Metolazone for CHF, Rocephin & Flagyl for Diverticulitis in the ER. Had CT abdomen/pelvis showed diverticulosis questionable early diverticulitis. CXR showed mild CHF, questionable pneumonia in bases. WBC was normal. Cr 1.3 today 1.2. BNP was 7980. INR was 3.21 and today 4.03. UA was negative for leukocyte esterase or nitrites but had >1000 glucose. left chest Pain Score (Numeric/FACES): 6 Abdomen Pain Score (Numeric/FACES): 5 Back Pain Score (Numeric/FACES): 5 - Related Data Allergies/Adverse Reactions: Allergies Allergy/AdvReac Type Severity Reaction Status Date / Time Penicillins Allergy Rash Verified 10/25/19 19:22 Sulfa (Sulfonamide Allergy Rash Verified 10/25/19 19:22 Antibiotics) Home Medications: Home Meds Acetaminophen [Tylenol Extra Strength] 500 mg PO DAILY 03/14/19 [History] Docusate Sodium 100 mg PO BID PRN 03/14/19 [History] Fluocinolone Acetonide 4 drop EARBOTH ASDIRECTED PRN 03/14/19 [History] Furosemide [Lasix] 40 mg PO DAILY 03/14/19 [History] Isosorbide Mononitrate [Imdur] 90 mg PO DAILY 03/14/19 [History] Metoprolol Succinate [Toprol XL 100mg] 100 mg PO BEDTIME 03/14/19 [History] Multivitamin [Daily Zachray] 1 tab PO DAILY 03/14/19 [History] Nitroglycerin 0.4 mg SL Q5M PRN 03/14/19 [History] Peppermint Oil Cap 1 cap PO BEDTIME 03/14/19 [History] Triamcinolone Acetonide [Triamcinolone Acetonide 0.1% Crm] 1 applic TOP BID PRN 03/14/19 [History] Ubidecarenone [Coenzyme Q10] 100 mg PO DAILY 03/14/19 [History] Warfarin [Coumadin] 5 mg PO DAILY 03/14/19 [History] lisinopriL [Zestril] 10 mg PO DAILY 03/14/19 [History] nitrofurantoin macrocrystaL [Macrodantin] 50 mg PO MOWEFR@2100 03/14/19 [History] Acetaminophen [Tylenol Extra Strength] 1,000 mg PO BEDTIME 10/26/19 [History] Cholecalciferol (Vitamin D3) [Vitamin D3] 10 mcg PO DAILY 10/26/19 [History] Isosorbide Mononitrate [Imdur] 30 mg PO DAILY@1600 10/26/19 [History] Past Medical History HEENT History: Reports: Glaucoma, Macular Degeneration Cardiovascular History: Reports: Afib, Heart Failure, Hypertension, [place], Stents Respiratory History: Reports: Pneumonia, Recurrent Gastrointestinal History: Reports: Diverticulosis Genitourinary History: Reports: None 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: Other OB/BYN History: Musculoskeletal History: Reports: Arthritis Neurological History: Reports: Concussion, CVA, Migraines, Parkinson's, Vertigo Other Neuro History: CVA with L sided weakness Psychiatric History: Reports: Anxiety, Depression Endocrine/Metabolic History: Reports: Diabetes, Type II, Obesity/BMI 30+ Hematologic History: Reports: Anticoagulation Therapy - Infectious Disease History Infectious Disease History: Reports: Shingles - Past Surgical History HEENT Surgical History: Reports: Cataract Surgery Other HEENT Surgeries/Procedures: bilat cataract Cardiovascular Surgical History: Reports: Coronary Artery Stent GI Surgical History: Reports: Colonoscopy, Other (See Below) Other GI Surgeries/Procedures: exp lap Female Surgical History: Reports: Hysterectomy Social & Family History - Family History Family Medical History: Noncontributory - Tobacco Use Smoking Status *Q: Unknown Ever Smoked Second Hand Smoke Exposure: No - Caffeine Use Caffeine Use: Reports: Coffee, Soda - Recreational Drug Use Recreational Drug Use: No H&P Review of Systems - Review of Systems: Review Of Systems: Comprehensive ROS is negative, except as noted in HPI. Exam - Exam Exam: See Below - Vital Signs Vital Signs: Last Vital Signs Temp 97.2 F 10/26/19 08:00 Pulse 61 10/26/19 08:00 Resp 18 10/26/19 08:00 BP 126/89 10/26/19 08:00 Pulse Ox 98 10/26/19 08:00 Weight: 181 lb 11.2 oz - Exam Quality Assessment: Supplemental Oxygen (3L) General: Alert, Oriented, Cooperative. No: Mild Distress HEENT: PERRLA, Conjunctiva Clear, EOMI, Hearing Intact, Mucosa Moist & [place], Glasses Neck: Trachea Midline Lungs: Clear to Auscultation, Normal Respiratory Effort, Crackles (Bibasilar). No: Wheezing Cardiovascular: Regular Rate, Irregular Rhythm GI/Abdominal Exam: Normal Bowel Sounds, Soft, No Distention, Guarding, Tender (BLQ). No: Rigid, Rebound (Female) Exam: Deferred Rectal (Female) Exam: Deferred Extremities: Pedal Edema (2+ BLE to knees.) Peripheral Pulses: 2+: Radial (L), Radial (R) - Patient Data Lab Results Last 24 hrs: Laboratory Results - last 24 hr 10/25/19 10/25/19 10/25/19 Range/Units 12:30 12:30 12:30 WBC 6.3 (4.5-12.0) X10-3/uL RBC 3.86 (3.23-5.20) x10(6)uL Hgb 12.2 (11.5-15.5) g/dL Hct 37.2 (30.0-51.3) % MCV 96.3 H (80-96) fL MCH 31.6 (27.7-33.6) pg MCHC 32.8 (32.2-35.4) g/dL RDW 12.3 (11.5-15.5) % Plt Count 156 (125-369) X10(3)uL MPV 10.1 (7.4-10.4) fL Neut % (Auto) 72.4 (46-82) % Lymph % (Auto) 15.4 (13-37) % Tillman % (Auto) 8.4 (4-12) % Eos % (Auto) 2 (1.0-5.0) % Baso % (Auto) 2 (0-2) % Neut # (Auto) 4.6 (1.6-8.3) # Lymph # (Auto) 1.0 (0.6-5.0) # Tillman # (Auto) 0.5 (0.0-1.3) # Eos # (Auto) 0.1 (0.0-0.8) # Baso # (Auto) 0.1 (0.0-0.2) # PT 32.1 H (9.0-11.1) sec INR 3.21 H (1.00-1.24) Sodium 135 (135-145) mmol/L Potassium 4.5 D (3.5-5.3) mmol/L Chloride 97 L D (100-110) mmol/L Carbon Dioxide 28 (21-32) mmol/L BUN 15 D (7-18) mg/dL Creatinine 1.3 H (0.55-1.02) mg/dL Est Cr Clr Drug Dosing TNP Estimated GFR (MDRD) 39 L (>60) BUN/Creatinine Ratio 11.5 (9-20) Glucose 380 H D (80-116) mg/dL Calcium 8.7 (8.6-10.2) mg/dL Total Bilirubin 0.6 (0.1-1.3) mg/dL AST 21 D (5-25) IU/L ALT 21 D (12-36) U/L Alkaline Phosphatase 69 (56-112) IU/L Troponin I (4.0-60.3) pg/mL NT-Pro-B Natriuret Pep (<=450) pg/mL Total Protein 7.2 (6.0-8.0) g/dL Albumin 3.5 (3.2-4.6) g/dL Globulin 3.7 g/dL Albumin/Globulin Ratio 1.0 Urine Color (YELLOW) Urine Appearance (CLEAR) Urine pH (5.0-6.5) Ur Specific [place] (1.010-1.025) Urine Protein (NEGATIVE) mg/dL Urine Glucose (UA) (NORMAL) mg/dL Urine Ketones (NEGATIVE) mg/dL Urine Occult Blood (NEGATIVE) Urine Nitrite (NEGATIVE) Urine Bilirubin (NEGATIVE) Urine Urobilinogen (NEGATIVE) mg/dL Ur Leukocyte Esterase (NEGATIVE) Urine RBC (0-5) Urine WBC (0-5) Ur Squamous Epith Cells (NS,R,O) Urine Bacteria (NS) 10/25/19 10/25/19 10/26/19 Range/Units 12:30 13:28 06:40 WBC 5.5 (4.5-12.0) X10-3/uL RBC 3.62 (3.23-5.20) x10(6)uL Hgb 11.4 L (11.5-15.5) g/dL Hct 34.8 (30.0-51.3) % MCV 96.0 (80-96) fL MCH 31.5 (27.7-33.6) pg MCHC 32.8 (32.2-35.4) g/dL RDW 12.3 (11.5-15.5) % Plt Count 153 (125-369) X10(3)uL MPV 10.4 (7.4-10.4) fL Neut % (Auto) 63.7 (46-82) % Lymph % (Auto) 22.1 (13-37) % Tillman % (Auto) 9.4 (4-12) % Eos % (Auto) 2 (1.0-5.0) % Baso % (Auto) 3 H (0-2) % Neut # (Auto) 3.5 (1.6-8.3) # Lymph # (Auto) 1.2 (0.6-5.0) # Tillman # (Auto) 0.5 (0.0-1.3) # Eos # (Auto) 0.1 (0.0-0.8) # Baso # (Auto) 0.2 (0.0-0.2) # PT (9.0-11.1) sec INR (1.00-1.24) Sodium (135-145) mmol/L Potassium (3.5-5.3) mmol/L Chloride (100-110) mmol/L Carbon Dioxide (21-32) mmol/L BUN (7-18) mg/dL Creatinine (0.55-1.02) mg/dL Est Cr Clr Drug Dosing Estimated GFR (MDRD) (>60) BUN/Creatinine Ratio (9-20) Glucose (80-116) mg/dL Calcium (8.6-10.2) mg/dL Total Bilirubin (0.1-1.3) mg/dL AST (5-25) IU/L ALT (12-36) U/L Alkaline Phosphatase (56-112) IU/L Troponin I 28.7 (4.0-60.3) pg/mL NT-Pro-B Natriuret Pep 7980 H* (<=450) pg/mL Total Protein (6.0-8.0) g/dL Albumin (3.2-4.6) g/dL Globulin g/dL Albumin/Globulin Ratio Urine Color Yellow (YELLOW) Urine Appearance Clear (CLEAR) Urine pH 5.0 (5.0-6.5) Ur Specific [place] 1.015 (1.010-1.025) Urine Protein Negative (NEGATIVE) mg/dL Urine Glucose (UA) >1000 H (NORMAL) mg/dL Urine Ketones Negative (NEGATIVE) mg/dL Urine Occult Blood Trace (NEGATIVE) Urine Nitrite Negative (NEGATIVE) Urine Bilirubin Negative (NEGATIVE) Urine Urobilinogen Normal (NEGATIVE) mg/dL Ur Leukocyte Esterase Negative (NEGATIVE) Urine RBC 0-5 (0-5) Urine WBC 0-5 (0-5) Ur Squamous Epith Cells Moderate H (NS,R,O) Urine Bacteria Moderate H (NS) 10/26/19 10/26/19 Range/Units 06:40 06:40 WBC (4.5-12.0) X10-3/uL RBC (3.23-5.20) x10(6)uL Hgb (11.5-15.5) g/dL Hct (30.0-51.3) % MCV (80-96) fL MCH (27.7-33.6) pg MCHC (32.2-35.4) g/dL RDW (11.5-15.5) % Plt Count (125-369) X10(3)uL MPV (7.4-10.4) fL Neut % (Auto) (46-82) % Lymph % (Auto) (13-37) % Tillman % (Auto) (4-12) % Eos % (Auto) (1.0-5.0) % Baso % (Auto) (0-2) % Neut # (Auto) (1.6-8.3) # Lymph # (Auto) (0.6-5.0) # Tillman # (Auto) (0.0-1.3) # Eos # (Auto) (0.0-0.8) # Baso # (Auto) (0.0-0.2) # PT 39.7 H* (9.0-11.1) sec INR 4.03 H* (1.00-1.24) Sodium 134 L (135-145) mmol/L Potassium 3.7 (3.5-5.3) mmol/L Chloride 95 L (100-110) mmol/L Carbon Dioxide 33 H (21-32) mmol/L BUN 15 (7-18) mg/dL Creatinine 1.2 H (0.55-1.02) mg/dL Est Cr Clr Drug Dosing 23.28 Estimated GFR (MDRD) 42 L (>60) BUN/Creatinine Ratio 12.5 (9-20) Glucose 266 H D (80-116) mg/dL Calcium 8.5 L (8.6-10.2) mg/dL Total Bilirubin (0.1-1.3) mg/dL AST (5-25) IU/L ALT (12-36) U/L Alkaline Phosphatase (56-112) IU/L Troponin I (4.0-60.3) pg/mL NT-Pro-B Natriuret Pep (<=450) pg/mL Total Protein (6.0-8.0) g/dL Albumin (3.2-4.6) g/dL Globulin g/dL Albumin/Globulin Ratio Urine Color (YELLOW) Urine Appearance (CLEAR) Urine pH (5.0-6.5) Ur Specific [place] (1.010-1.025) Urine Protein (NEGATIVE) mg/dL Urine Glucose (UA) (NORMAL) mg/dL Urine Ketones (NEGATIVE) mg/dL Urine Occult Blood (NEGATIVE) Urine Nitrite (NEGATIVE) Urine Bilirubin (NEGATIVE) Urine Urobilinogen (NEGATIVE) mg/dL Ur Leukocyte Esterase (NEGATIVE) Urine RBC (0-5) Urine WBC (0-5) Ur Squamous Epith Cells (NS,R,O) Urine Bacteria (NS) Result Diagrams: 10/26/19 06:40 10/26/19 06:40 Sepsis Event Note - Evaluation Sepsis Screening Result: No Definite Risk - Focused Exam Vital Signs: Vital Signs Temp Temp Pulse Resp BP Pulse Ox Pulse Ox 10/26/19 08:00 97.2 F 61 18 126/89 98 10/26/19 04:00 97.2 F 73 20 122/57 L 99 10/26/19 00:00 97.5 F 60 18 135/87 99 99 *Q Meaningful Use (ADM) - VTE Risk Assess *Q Each Risk Factor Represents 1 Point: Congestive heart failure (CHF) Total Score 1 Point Risk Factors: 1 Each Risk Factor Represents 2 Points: None Total Score 2 Point Risk Factors: 0 Each Risk Factor Represents 3 Points: Age 75 Years or Greater Total Score 3 Point Risk Factors: 3 Each Risk Factor Represents 5 Points: None Total Score 5 Point Risk Factors: 0 Venous Thromboembolism Risk Factor Score *Q: 4 - Problem List (1) Diverticulitis SNOMED Code(s): 853314142 ICD Code: K57.92 - DVTRCLI OF INTEST, PART UNSP, W/O PERF OR ABSCESS W/O BLEED Status: Acute Current Visit: Yes Problem Details: Rocephin & Flagyl day 2. (2) Chronic systolic congestive heart failure, NYHA class 3 SNOMED Code(s): 495345528, 135798104, 807920679 ICD Code: I50.22 - CHRONIC SYSTOLIC (CONGESTIVE) HEART FAILURE Status: Chronic Current Visit: Yes Problem Details: EF 30%, last seen in August 28, 2019, Imdur increased to 60 mg in am and 30 mg in afternoon then on Oct 22 increased to 90 mg in am and 30 mg in afternoon. Had not wanted any stress testing or invasive coronary angiogram. Dr Freeman had discussed hospice in the future if they could not control her symptoms with antianginals. (3) Afib SNOMED Code(s): 14163458 ICD Code: I48.91 - UNSPECIFIED ATRIAL FIBRILLATION Status: Chronic Current Visit: Yes (4) Acute renal insufficiency SNOMED Code(s): 537278731 ICD Code: N28.9 - DISORDER OF KIDNEY AND URETER, UNSPECIFIED Status: Acute Current Visit: No (5) Elevated INR SNOMED Code(s): 209279736 ICD Code: R79.1 - ABNORMAL COAGULATION PROFILE Status: Acute Current Visit: No Problem Details: Coumadin per pharmacy. Hold dose today, adjust as needed. (6) Weakness SNOMED Code(s): 30651884 ICD Code: R53.1 - WEAKNESS Status: Acute Current Visit: Yes (7) Declining functional status SNOMED Code(s): 645460055378277 ICD Code: R53.81 - OTHER MALAISE Status: Acute Current Visit: Yes (8) Chest pain SNOMED Code(s): 35894468 ICD Code: R07.9 - CHEST PAIN, UNSPECIFIED Status: Chronic Current Visit: Yes Qualifiers: Ischemic chest pain type: stable angina pectoris (9) Diabetes mellitus type 2, diet-controlled SNOMED Code(s): 343062026977455, 224234876307273 ICD Code: E11.9 - TYPE 2 DIABETES MELLITUS WITHOUT COMPLICATIONS Status: Chronic Current Visit: Yes Problem List Initiated/Reviewed/Updated: Yes Orders Last 24hrs: Active Orders 24 hr Category Date Time Status Patient Status [ADT] Routine ADT 10/25/19 18:05 Active Cardiac Monitoring [RC] CONTINUOUS Care 10/25/19 18:11 Active Intake and Output [RC] 06,14,22 Care 10/25/19 18:11 Active Oxygen Therapy [RC] PRN Care 10/25/19 18:05 Active Pulse Oximetry [RC] CONTINUOUS Care 10/25/19 18:11 Active Vital Signs [RC] 00,04,08,12,16,20 Care 10/25/19 18:05 Active OT Evaluation and Treatment [CONS] Routine Cons 10/26/19 08:39 Active PT Evaluation and Treatment [CONS] Routine Cons 10/26/19 08:39 Active Consistent Carbohydrate Diet [DIET] Diet 10/26/19 Lunch Active Heart Healthy Diet [DIET] Diet 10/25/19 Dinner Ordered BASIC METABOLIC PANEL,BMP [CHEM] Routine Lab 10/27/19 06:00 Ordered INR,PT,PROTHROMBIN TIME [COAG] DAILY Lab 10/27/19 06:00 Ordered INR,PT,PROTHROMBIN TIME [COAG] DAILY Lab 10/28/19 06:00 Ordered INR,PT,PROTHROMBIN TIME [COAG] DAILY Lab 10/29/19 06:00 Ordered INR,PT,PROTHROMBIN TIME [COAG] DAILY Lab 10/30/19 06:00 Ordered Acetaminophen [Tylenol Extra Strength] Med 10/26/19 21:00 Active 1,000 mg PO BEDTIME Acetaminophen [Tylenol Extra Strength] Med 10/25/19 21:00 Active 500 mg PO BID Acetaminophen [Tylenol Extra Strength] Med 10/27/19 09:00 Active 500 mg PO DAILY Ascorbic Acid [Vitamin C] Med 10/25/19 21:00 Active 1,000 mg PO BEDTIME Docusate Sodium [Colace] Med 10/25/19 18:15 Active 100 mg PO BID PRN Furosemide [Lasix] Med 10/25/19 21:00 Active 40 mg IVPUSH BID Isosorbide Mononitrate [Imdur] Med 10/26/19 16:00 Active 30 mg PO DAILY@1600 Isosorbide Mononitrate [Imdur] Med 10/26/19 10:00 Active 90 mg PO DAILY Metoprolol Succinate [Toprol XL] Med 10/25/19 21:00 Active 100 mg PO BEDTIME Multivitamins [Tab-A-Zachary] Med 10/26/19 09:00 Active 1 tab PO DAILY Nitroglycerin [Nitrostat] Med 10/25/19 18:15 Active 0.4 mg SL Q5M PRN Ondansetron [Zofran] Med 10/25/19 18:04 Active 4 mg IV Q4H PRN Sodium Chloride 0.9% [Saline Flush] Med 10/25/19 13:13 Active 10 ml FLUSH ASDIRECTED PRN Triamcinolone Acetonide [Triamcinolone Acetonide 0.1% Med 10/25/19 18:15 Active Crm] 0 gm TOP BID PRN Ubidecarenone [Coenzyme Q10] Med 10/26/19 17:00 Active 100 mg PO QPM Warfarin Sliding Scale [Coumadin Sliding Scale] Med 10/26/19 08:15 Pending 1 each PO ASDIRECTED bisacodyL [Dulcolax] Med 10/25/19 18:04 Active 5 mg PO DAILY PRN cefTRIAXone [Rocephin] Med 10/25/19 18:30 Active 1 gm IVPUSH Q24H metroNIDAZOLE/Normal Saline [Flagyl 500 MG in NS 100 ML Med 10/25/19 18:30 Active ] 500 mg Premix Bag 1 bag IV Q8H Saline Lock Insert [OM.PC] Routine Oth 10/25/19 13:13 Ordered Resuscitation Status Routine Resus Stat 10/25/19 18:04 Ordered EKG 12 Lead [EK] Routine Ther 10/25/19 12:19 Ordered Medication Orders Acetaminophen (Tylenol Extra Strength) 500 mg PO BID [facility] Stop: 10/26/19 12:00 Last Admin: 10/26/19 09:59 Dose: 500 mg Documented by: Admin: 10/25/19 20:29 Dose: 500 mg Documented by: GARCIA Acetaminophen (Tylenol Extra Strength) 1,000 mg PO BEDTIME [facility] Acetaminophen (Tylenol Extra Strength) 500 mg PO DAILY [facility] Ascorbic Acid (Vitamin C) 1,000 mg PO BEDTIME [facility] Last Admin: 10/25/19 20:28 Dose: 1,000 mg Documented by: GARCIA Bisacodyl (Dulcolax) 5 mg PO DAILY PRN PRN Reason: Constipation Ceftriaxone Sodium (Rocephin) 1 gm IVPUSH Q24H [facility] Last Admin: 10/25/19 19:19 Dose: 1 gm Documented by: RICHARDSON Coenzyme Q10 (Coenzyme Q10) 100 mg PO QPM IFTIKHAR Docusate Sodium (Colace) 100 mg PO BID PRN PRN Reason: Constipation Furosemide (Lasix) 40 mg IVPUSH BID [facility] Last Admin: 10/26/19 09:59 Dose: 40 mg Documented by: Admin: 10/25/19 19:19 Dose: 40 mg Documented by: RICHARDSON Metronidazole 500 mg/ Premix 100 mls @ 100 mls/hr IV Q8H [facility] Last Admin: 10/26/19 02:41 Dose: 100 mls/hr Documented by: Infusion: 10/25/19 20:19 Dose: 100 mls/hr Documented by: Admin: 10/25/19 19:19 Dose: 100 mls/hr Documented by: RICHARDSON Isosorbide Mononitrate (Imdur) 90 mg PO DAILY [facility] Isosorbide Mononitrate (Imdur) 30 mg PO DAILY@1600 [facility] Metoprolol Succinate (Toprol Xl) 100 mg PO BEDTIME [facility] Last Admin: 10/25/19 20:29 Dose: 100 mg Documented by: GARCIA Multivitamins/Minerals/Vitamin C (Tab-A-Zachary) 1 tab PO DAILY [facility] Last Admin: 10/26/19 09:59 Dose: 1 tab Documented by: ZEUS Nitroglycerin (Nitrostat) 0.4 mg SL Q5M PRN PRN Reason: Chest Pain Ondansetron HCl (Zofran) 4 mg IV Q4H PRN PRN Reason: Nausea/Vomiting Sodium Chloride (Saline Flush) 10 ml FLUSH ASDIRECTED PRN PRN Reason: Keep Vein Open Last Admin: 10/26/19 02:41 Dose: 10 ml Documented by: MEGAN Triamcinolone Acetonide (Triamcinolone Acetonide 0.1% Crm) 0 gm TOP BID PRN PRN Reason: Rash Warfarin Sodium (Coumadin Sliding Scale) 1 each PO ASDIRECTED [facility] Assessment/Plan Comment:: 1. Admit for early Diverticulitis, CHF exacerbation, stable angina. 2. Diverticulitis: Rocephin & Flagyl day 2. 3. CHF: Lasix 40 mg IV bid, I&Os, daily weight. Repeat lab tomorrow. 4. Angina: Imdur 90 mg in am, [address] Freeman, Cardiology August note reviewed, they had discussed possible hospice in the future if they could not control her symptoms with antianginals as she did not want stress testing or invasive coronary angiogram done. She is due to see him back in Nov. 5. Weakness, functional decline: PT/OT evaluate & treat. 6. Elevated INR: Coumadin held today, daily INR, Pharmacy to dose. 7. Diet controlled DM: consistent carb/heart health diet. 8. DNR/DNI. 9. Discharge planning: will access services needed, may benefit from swing bed placement for strengthening if Divina and her family wish for her to go back home. See above what Cardiology had discussed. - Mortality Measure Prognosis:: Poor
[2019-10-26] MEDS: Isosorbide Mononitrate 30 MG Tab.ER PO SCH ×2 (10:49→15:17)
[2019-10-26] MEDS: cefTRIAXone 1 GM Vial IVPUSH SCH (18:30)
[2019-10-26] MEDS: Metoprolol Succinate 100 MG Tab.ER PO SCH (20:05)
[2019-10-26] MEDS: Ascorbic Acid 500 MG Tab PO SCH (20:06)
[2019-10-27] MEDS: metroNIDAZOLE/Normal Saline 500 MG in Premix Bag 1 BAG IV SCH ×3 (02:09→18:32)
[2019-10-27] MEDS: Sodium Chloride 0.9% 10 ML Syringe FLUSH PRN ×4 (04:02→20:07)
--- NOTE | 2019-10-27 09:14 | PCM.PN ---
- General Info Date of Service: 10/27/19 Admission Dx/Problem (Free Text): Admission Diagnosis/Problem Admission Diagnosis/Problem Diverticulitis, Atrial fibrillation and flutter, CHF Subjective Update: Divina feels weak. She also has some diarrhea and chronic abdominal pain. No fever or cough. She has no chest pain today. - Review of Systems Pulmonary: Reports: Shortness of Breath Cardiovascular: Reports: No Symptoms Gastrointestinal: Reports: Abdominal Pain, Diarrhea Genitourinary: Reports: No Symptoms Musculoskeletal: Reports: No Symptoms Neurological: Reports: Other (Tremors) - Patient Data Vitals - Most Recent: Last Vital Signs Temp 97.1 F 10/27/19 04:00 Pulse 62 10/27/19 04:00 Resp 19 10/27/19 04:00 BP 125/52 L 10/27/19 04:00 Pulse Ox 100 10/27/19 04:00 Weight - Most Recent: 80.513 kg I&O - Last 24 Hours: Intake & Output 10/26/19 10/27/19 10/27/19 22:59 06:59 14:59 Intake Total 100 250 Output Total 700 875 Balance -700 -775 250 Lab Results Last 24 Hours: Laboratory Results - last 24 hr 10/27/19 10/27/19 Range/Units 06:50 06:50 PT 26.6 H (9.0-11.1) sec INR 2.62 H (1.00-1.24) Sodium 137 (135-145) mmol/L Potassium 2.9 L (3.5-5.3) mmol/L Chloride 93 L (100-110) mmol/L Carbon Dioxide 35 H (21-32) mmol/L BUN 22 H (7-18) mg/dL Creatinine 1.4 H (0.55-1.02) mg/dL Est Cr Clr Drug Dosing 19.95 mL/min Estimated GFR (MDRD) 35 L (>60) BUN/Creatinine Ratio 15.7 (9-20) Glucose 217 H (80-116) mg/dL Calcium 8.3 L (8.6-10.2) mg/dL Med Orders - Current: Current Medications Acetaminophen (Tylenol Extra Strength) 1,000 mg PO BEDTIME [facility] Last Admin: 10/26/19 20:06 Dose: 1,000 mg Documented by: Acetaminophen (Tylenol Extra Strength) 500 mg PO DAILY I[facility] Ascorbic Acid (Vitamin C) 1,000 mg PO BEDTIME [facility] Last Admin: 10/26/19 20:06 Dose: 1,000 mg Documented by: Bisacodyl (Dulcolax) 5 mg PO DAILY PRN PRN Reason: Constipation Ceftriaxone Sodium (Rocephin) 1 gm IVPUSH Q24H [facility] Last Admin: 10/26/19 18:30 Dose: 1 gm Documented by: Coenzyme Q10 (Coenzyme Q10) 100 mg PO QPM [facility] Last Admin: 10/26/19 17:01 Dose: 100 mg Documented by: Docusate Sodium (Colace) 100 mg PO BID PRN PRN Reason: Constipation Furosemide (Lasix) 40 mg IVPUSH BID [facility] Last Admin: 10/26/19 20:07 Dose: 40 mg Documented by: Metronidazole 500 mg/ Premix 100 mls @ 100 mls/hr IV Q8H [facility] Last Admin: 10/27/19 02:09 Dose: 100 mls/hr Documented by: Isosorbide Mononitrate (Imdur) 90 mg PO DAILY [facility] Last Admin: 10/26/19 10:49 Dose: 90 mg Documented by: Isosorbide Mononitrate (Imdur) 30 mg PO DAILY@1600 [facility] Last Admin: 10/26/19 15:17 Dose: 30 mg Documented by: Metoprolol Succinate (Toprol Xl) 100 mg PO BEDTIME [facility] Last Admin: 10/26/19 20:05 Dose: 100 mg Documented by: Multivitamins/Minerals/Vitamin C (Tab-A-Zachary) 1 tab PO DAILY [facility] Last Admin: 10/26/19 09:59 Dose: 1 tab Documented by: Nitroglycerin (Nitrostat) 0.4 mg SL Q5M PRN PRN Reason: Chest Pain Ondansetron HCl (Zofran) 4 mg IV Q4H PRN PRN Reason: Nausea/Vomiting Potassium Chloride (Klor-Con M20) 20 meq PO BID [facility] Sodium Chloride (Saline Flush) 10 ml FLUSH ASDIRECTED PRN PRN Reason: Keep Vein Open Last Admin: 10/27/19 04:02 Dose: 10 ml Documented by: Triamcinolone Acetonide (Triamcinolone Acetonide 0.1% Crm) 0 gm TOP BID PRN PRN Reason: Rash Warfarin Sodium (Coumadin Sliding Scale) 1 each PO ASDIRECTED I[facility] Warfarin Sodium (Coumadin) 5 mg PO ONETIME ONE Stop: 10/27/19 16:01 Discontinued Medications Acetaminophen (Tylenol Extra Strength) 500 mg PO BID [facility] Stop: 10/26/19 12:00 Last Admin: 10/26/19 09:59 Dose: 500 mg Documented by: Aspirin (Aspirin) 324 mg PO ONETIME ONE Stop: 10/25/19 14:26 Last Admin: 10/25/19 14:54 Dose: 324 mg Documented by: Diatrizoate Meglum/Diatrizoate Sod (Gastrografin 37%) 30 ml PO . DIRECTED ONE Stop: 10/25/19 15:42 Last Admin: 10/25/19 22:37 Dose: Not Given Documented by: Diltiazem HCl (Diltiazem) 25 mg IVPUSH ONETIME ONE Stop: 10/25/19 14:26 Last Admin: 10/25/19 14:48 Dose: 25 mg Documented by: Metolazone (Zaroxolyn) 2.5 mg PO ONETIME ONE Stop: 10/25/19 18:21 Last Admin: 10/25/19 20:33 Dose: 2.5 mg Documented by: Metolazone (Zaroxolyn) Confirm Administered Dose 2.5 mg .ROUTE .STK-MED ONE Stop: 10/25/19 20:32 Last Admin: 10/25/19 20:34 Dose: Not Given Documented by: Morphine Sulfate (Morphine) 2 mg IVPUSH ONETIME ONE Stop: 10/25/19 14:27 Last Admin: 10/25/19 14:48 Dose: 2 mg Documented by: Non-Formulary Medication (Cholecalciferol (Vitamin D3) [Vitamin D3]) 400 unit PO BEDTIME [facility] Last Admin: 10/26/19 22:38 Dose: Not Given Documented by: Non-Formulary Medication (Fluocinolone Acetonide [Fluocinolone Acetonide]) 4 drop TOP ASDIRECTED PRN PRN Reason: Dizziness Non-Formulary Medication (Peppermint Oil Cap) 1 cap PO BEDTIME [facility] Last Admin: 10/26/19 22:38 Dose: Not Given Documented by: Spironolactone (Aldactone) 12.5 mg PO DAILY I[facility] - Exam Quality Assessment: Supplemental Oxygen General: Alert Neck: Supple Lungs: Crackles, Rales Cardiovascular: Irregular Rhythm GI/Abdominal Exam: Normal Bowel Sounds, Soft, Tender Extremities: Normal Inspection Sepsis Event Note - Evaluation Sepsis Screening Result: No Definite Risk - Focused Exam Vital Signs: Vital Signs Temp Pulse Resp BP Pulse Ox Pulse Ox 10/27/19 04:00 97.1 F 62 19 125/52 L 100 10/27/19 00:00 97 F 70 20 126/56 L 97 97 - Problem List & Annotations (1) Chronic systolic congestive heart failure, NYHA class 3 SNOMED Code(s): 697710447, 431892111, 473533151 Code(s): I50.22 - CHRONIC SYSTOLIC (CONGESTIVE) HEART FAILURE Status: Chronic Current Visit: Yes (2) Ischemic cardiomyopathy SNOMED Code(s): 713273284 Code(s): I25.5 - ISCHEMIC CARDIOMYOPATHY Status: Acute Current Visit: Yes (3) Declining functional status SNOMED Code(s): 548568381410208 Code(s): R53.81 - OTHER MALAISE Status: Acute Current Visit: Yes (4) Diverticulitis SNOMED Code(s): 979292307 Code(s): K57.92 - DVTRCLI OF INTEST, PART UNSP, W/O PERF OR ABSCESS W/O BLEED Status: Acute Current Visit: Yes Annotation/Comment:: Rocephin & Flagyl day 2. (5) Diabetes mellitus type 2, diet-controlled SNOMED Code(s): 481989734420517, 497318123214827 Code(s): E11.9 - TYPE 2 DIABETES MELLITUS WITHOUT COMPLICATIONS Status: Chronic Current Visit: Yes (6) Hypokalemia SNOMED Code(s): 37721842 Code(s): E87.6 - HYPOKALEMIA Status: Acute Current Visit: Yes (7) Parkinson disease SNOMED Code(s): 76384136 Code(s): G20 - PARKINSON'S DISEASE Status: Acute Current Visit: Yes - Problem List Review Problem List Initiated/Reviewed/Updated: Yes - My Orders Last 24 Hours: My Active Orders 10/27/19 09:15 Potassium Chloride [Klor-Con M20] 20 meq PO BID 10/27/19 Lunch Clear Liquid Diet [DIET] 10/27/19 16:00 Warfarin [Coumadin] 5 mg PO ONETIME ONE 10/28/19 05:11 BASIC METABOLIC PANEL,BMP [CHEM] AM CBC WITH AUTO DIFF [HEME] AM PRO B-TYPE NATRIUR PEPT,BNPPRO [CHEM] DAILY 10/29/19 05:11 PRO B-TYPE NATRIUR PEPT,BNPPRO [CHEM] DAILY - Plan Plan:: Keep in clear diet. Continue IV abx,and IV Lasix. Replace K.Repeat CBC,CMP tomorrow.I appreciate PT input.
[2019-10-27] MEDS: Furosemide 40 MG/4 ML VIAL IVPUSH SCH ×2 (09:28→20:08)
[2019-10-27] MEDS: Isosorbide Mononitrate 30 MG Tab.ER PO SCH ×2 (09:28→16:19)
[2019-10-27] MEDS: Multivitamin Tab PO SCH (09:29)
[2019-10-27] MEDS: Potassium Chloride 20 MEQ Tab.ER PO SCH ×2 (09:30→20:01)
[2019-10-27] MEDS: Acetaminophen 500 MG Tab PO SCH ×2 (09:30→20:02)
[2019-10-27] MEDS ORDERED: Warfarin 5 MG Tab PO ONE (16:00)
[2019-10-27] MEDS ORDERED: Warfarin 5 MG Tab PO SCH (18:15)
[2019-10-27] MEDS: cefTRIAXone 1 GM Vial IVPUSH SCH (18:32)
[2019-10-27] MEDS: Ascorbic Acid 500 MG Tab PO SCH (20:06)
[2019-10-27] MEDS: Metoprolol Succinate 100 MG Tab.ER PO SCH (20:06)
[2019-10-28] MEDS: metroNIDAZOLE/Normal Saline 500 MG in Premix Bag 1 BAG IV SCH ×3 (01:43→18:18)
[2019-10-28] MEDS: Sodium Chloride 0.9% 10 ML Syringe FLUSH PRN ×5 (01:45→21:00)
[2019-10-28] MEDS: Acetaminophen 500 MG Tab PO SCH ×2 (08:18→21:04)
[2019-10-28] MEDS: Potassium Chloride 20 MEQ Tab.ER PO SCH ×3 (08:18→21:02)
[2019-10-28] MEDS: Furosemide 40 MG/4 ML VIAL IVPUSH SCH ×2 (08:18→20:56)
[2019-10-28] MEDS: Multivitamin Tab PO SCH (08:18)
[2019-10-28] MEDS: Isosorbide Mononitrate 30 MG Tab.ER PO SCH ×2 (08:26→16:28)
--- NOTE | 2019-10-28 09:39 | PCM.PN ---
- General Info Date of Service: 10/28/19 Subjective Update: Divina feels weak. She also has some diarrhea and chronic abdominal pain. No fever or cough. She has no chest pain today. Functional Status: Reports: Pain Controlled - Review of Systems HEENT: Reports: No Symptoms Pulmonary: Reports: No Symptoms - Patient Data Vitals - Most Recent: Last Vital Signs Temp 97.6 F 10/28/19 01:00 Pulse 71 10/28/19 01:00 Resp 10/28/19 01:00 BP 122/65 10/28/19 08:26 Pulse Ox 99 10/28/19 01:00 Weight - Most Recent: 78.97 kg I&O - Last 24 Hours: Intake & Output 10/27/19 10/28/19 10/28/19 22:59 06:59 14:59 Output Total 300 900 Balance -300 -900 Lab Results Last 24 Hours: Laboratory Results - last 24 hr 10/28/19 10/28/19 10/28/19 Range/Units 06:35 06:35 06:35 WBC 4.8 (4.5-12.0) X10-3/uL RBC 3.96 (3.23-5.20) x10(6)uL Hgb 12.4 (11.5-15.5) g/dL Hct 37.8 (30.0-51.3) % MCV 95.4 (80-96) fL MCH 31.4 (27.7-33.6) pg MCHC 32.9 (32.2-35.4) g/dL RDW 12.1 (11.5-15.5) % Plt Count 171 (125-369) X10(3)uL MPV 10.9 H (7.4-10.4) fL Neut % (Auto) 55.0 (46-82) % Lymph % (Auto) 26.6 (13-37) % Maury % (Auto) 12.1 H (4-12) % Eos % (Auto) 5 (1.0-5.0) % Baso % (Auto) 2 (0-2) % Neut # (Auto) 2.6 (1.6-8.3) # Lymph # (Auto) 1.3 (0.6-5.0) # Maury # (Auto) 0.6 (0.0-1.3) # Eos # (Auto) 0.2 (0.0-0.8) # Baso # (Auto) 0.1 (0.0-0.2) # PT 25.3 H (9.0-11.1) sec INR 2.48 H (1.00-1.24) Sodium 138 (135-145) mmol/L Potassium 2.8 L* (3.5-5.3) mmol/L Chloride 96 L (100-110) mmol/L Carbon Dioxide 35 H (21-32) mmol/L BUN 17 (7-18) mg/dL Creatinine 1.3 H (0.55-1.02) mg/dL Est Cr Clr Drug Dosing 21.49 mL/min Estimated GFR (MDRD) 39 L (>60) BUN/Creatinine Ratio 13.1 (9-20) Glucose 217 H (80-116) mg/dL Calcium 8.5 L (8.6-10.2) mg/dL NT-Pro-B Natriuret Pep (<=450) pg/mL 10/28/19 Range/Units 06:35 WBC (4.5-12.0) X10-3/uL RBC (3.23-5.20) x10(6)uL Hgb (11.5-15.5) g/dL Hct (30.0-51.3) % MCV (80-96) fL MCH (27.7-33.6) pg MCHC (32.2-35.4) g/dL RDW (11.5-15.5) % Plt Count (125-369) X10(3)uL MPV (7.4-10.4) fL Neut % (Auto) (46-82) % Lymph % (Auto) (13-37) % Maury % (Auto) (4-12) % Eos % (Auto) (1.0-5.0) % Baso % (Auto) (0-2) % Neut # (Auto) (1.6-8.3) # Lymph # (Auto) (0.6-5.0) # Maury # (Auto) (0.0-1.3) # Eos # (Auto) (0.0-0.8) # Baso # (Auto) (0.0-0.2) # PT (9.0-11.1) sec INR (1.00-1.24) Sodium (135-145) mmol/L Potassium (3.5-5.3) mmol/L Chloride (100-110) mmol/L Carbon Dioxide (21-32) mmol/L BUN (7-18) mg/dL Creatinine (0.55-1.02) mg/dL Est Cr Clr Drug Dosing mL/min Estimated GFR (MDRD) (>60) BUN/Creatinine Ratio (9-20) Glucose (80-116) mg/dL Calcium (8.6-10.2) mg/dL NT-Pro-B Natriuret Pep 6722 H* (<=450) pg/mL Med Orders - Current: Current Medications Acetaminophen (Tylenol Extra Strength) 1,000 mg PO BEDTIME [facility] Last Admin: 10/27/19 20:02 Dose: 1,000 mg Documented by: Acetaminophen (Tylenol Extra Strength) 500 mg PO DAILY [facility] Last Admin: 10/28/19 08:18 Dose: 500 mg Documented by: Ascorbic Acid (Vitamin C) 1,000 mg PO BEDTIME [facility] Last Admin: 10/27/19 20:06 Dose: 1,000 mg Documented by: Bisacodyl (Dulcolax) 5 mg PO DAILY PRN PRN Reason: Constipation Ceftriaxone Sodium (Rocephin) 1 gm IVPUSH Q24H [facility] Last Admin: 10/27/19 18:32 Dose: 1 gm Documented by: Coenzyme Q10 (Coenzyme Q10) 100 mg PO QPM [facility] Last Admin: 10/27/19 16:19 Dose: 100 mg Documented by: Docusate Sodium (Colace) 100 mg PO BID PRN PRN Reason: Constipation Furosemide (Lasix) 40 mg IVPUSH BID [facility] Last Admin: 10/28/19 08:18 Dose: 40 mg Documented by: Metronidazole 500 mg/ Premix 100 mls @ 100 mls/hr IV Q8H [facility] Last Admin: 10/28/19 01:43 Dose: 100 mls/hr Documented by: Isosorbide Mononitrate (Imdur) 90 mg PO DAILY [facility] Last Admin: 10/28/19 08:26 Dose: 90 mg Documented by: Isosorbide Mononitrate (Imdur) 30 mg PO DAILY@1600 [facility] Last Admin: 10/27/19 16:19 Dose: 30 mg Documented by: Metoprolol Succinate (Toprol Xl) 100 mg PO BEDTIME [facility] Last Admin: 10/27/19 20:06 Dose: 100 mg Documented by: Multivitamins/Minerals/Vitamin C (Tab-A-Zachary) 1 tab PO DAILY [facility] Last Admin: 10/28/19 08:18 Dose: 1 tab Documented by: Nitroglycerin (Nitrostat) 0.4 mg SL Q5M PRN PRN Reason: Chest Pain Ondansetron HCl (Zofran) 4 mg IV Q4H PRN PRN Reason: Nausea/Vomiting Potassium Chloride (Klor-Con M20) 40 meq PO TID [facility] Sodium Chloride (Saline Flush) 10 ml FLUSH ASDIRECTED PRN PRN Reason: Keep Vein Open Last Admin: 10/28/19 08:19 Dose: 10 ml Documented by: Triamcinolone Acetonide (Triamcinolone Acetonide 0.1% Crm) 0 gm TOP BID PRN PRN Reason: Rash Warfarin Sodium (Coumadin Sliding Scale) 1 each PO ASDIRECTED [facility] Warfarin Sodium (Coumadin) 5 mg PO ONETIME ONE Stop: 10/28/19 16:01 Discontinued Medications Acetaminophen (Tylenol Extra Strength) 500 mg PO BID [facility] Stop: 10/26/19 12:00 Last Admin: 10/26/19 09:59 Dose: 500 mg Documented by: Aspirin (Aspirin) 324 mg PO ONETIME ONE Stop: 10/25/19 14:26 Last Admin: 10/25/19 14:54 Dose: 324 mg Documented by: Diatrizoate Meglum/Diatrizoate Sod (Gastrografin 37%) 30 ml PO . DIRECTED ONE Stop: 10/25/19 15:42 Last Admin: 10/25/19 22:37 Dose: Not Given Documented by: Diltiazem HCl (Diltiazem) 25 mg IVPUSH ONETIME ONE Stop: 10/25/19 14:26 Last Admin: 10/25/19 14:48 Dose: 25 mg Documented by: Metolazone (Zaroxolyn) 2.5 mg PO ONETIME ONE Stop: 10/25/19 18:21 Last Admin: 10/25/19 20:33 Dose: 2.5 mg Documented by: Metolazone (Zaroxolyn) Confirm Administered Dose 2.5 mg .ROUTE .STK-MED ONE Stop: 10/25/19 20:32 Last Admin: 10/25/19 20:34 Dose: Not Given Documented by: Morphine Sulfate (Morphine) 2 mg IVPUSH ONETIME ONE Stop: 10/25/19 14:27 Last Admin: 10/25/19 14:48 Dose: 2 mg Documented by: Non-Formulary Medication (Cholecalciferol (Vitamin D3) [Vitamin D3]) 400 unit PO BEDTIME [facility] Last Admin: 10/26/19 22:38 Dose: Not Given Documented by: Non-Formulary Medication (Fluocinolone Acetonide [Fluocinolone Acetonide]) 4 drop TOP ASDIRECTED PRN PRN Reason: Dizziness Non-Formulary Medication (Peppermint Oil Cap) 1 cap PO BEDTIME [facility] Last Admin: 10/26/19 22:38 Dose: Not Given Documented by: Potassium Chloride (Klor-Con M20) 20 meq PO BID [facility] Last Admin: 10/28/19 08:18 Dose: 20 meq Documented by: Spironolactone (Aldactone) 12.5 mg PO DAILY [facility] Warfarin Sodium (Coumadin) 5 mg PO ONETIME ONE Stop: 10/27/19 16:01 Last Admin: 10/27/19 16:19 Dose: 5 mg Documented by: - Exam Quality Assessment: Supplemental Oxygen General: Alert Neck: Supple Lungs: Clear to Auscultation Cardiovascular: Regular Rate, Irregular Rhythm GI/Abdominal Exam: Normal Bowel Sounds, Distended Extremities: Normal Inspection Neurological: No New Focal Deficit, Other (tremor) Psy/Mental Status: Alert, Normal Affect Sepsis Event Note - Evaluation Sepsis Screening Result: No Definite Risk - Focused Exam Vital Signs: Vital Signs Temp Pulse Resp BP BP Pulse Ox Pulse Ox 10/28/19 08:26 122/65 10/28/19 01:00 97.6 F 71 20 129/78 99 10/28/19 00:59 99 - Problem List & Annotations (1) Chronic systolic congestive heart failure, NYHA class 3 SNOMED Code(s): 883077474, 249438952, 292923217 Code(s): I50.22 - CHRONIC SYSTOLIC (CONGESTIVE) HEART FAILURE Status: Chronic Current Visit: Yes (2) Ischemic cardiomyopathy SNOMED Code(s): 716993442 Code(s): I25.5 - ISCHEMIC CARDIOMYOPATHY Status: Acute Current Visit: Yes (3) Declining functional status SNOMED Code(s): 159123262665506 Code(s): R53.81 - OTHER MALAISE Status: Acute Current Visit: Yes (4) Diverticulitis SNOMED Code(s): 379117719 Code(s): K57.92 - DVTRCLI OF INTEST, PART UNSP, W/O PERF OR ABSCESS W/O BLEED Status: Acute Current Visit: Yes Annotation/Comment:: Rocephin & Flagyl day 2. (5) Diabetes mellitus type 2, diet-controlled SNOMED Code(s): 766501318949860, 767466503378800 Code(s): E11.9 - TYPE 2 DIABETES MELLITUS WITHOUT COMPLICATIONS Status: Chronic Current Visit: Yes (6) Hypokalemia SNOMED Code(s): 08380472 Code(s): E87.6 - HYPOKALEMIA Status: Acute Current Visit: Yes (7) Parkinson disease SNOMED Code(s): 25685940 Code(s): G20 - PARKINSON'S DISEASE Status: Acute Current Visit: Yes - Problem List Review Problem List Initiated/Reviewed/Updated: Yes - My Orders Last 24 Hours: My Active Orders 10/27/19 Lunch Clear Liquid Diet [DIET] 10/28/19 14:00 Potassium Chloride [Klor-Con M20] 40 meq PO TID 10/28/19 16:00 Warfarin [Coumadin] 5 mg PO ONETIME ONE 10/29/19 05:11 BASIC METABOLIC PANEL,BMP [CHEM] AM CBC WITH AUTO DIFF [HEME] AM PRO B-TYPE NATRIUR PEPT,BNPPRO [CHEM] DAILY - Plan Plan:: Keep in clear diet. Continue IV abx,and IV Lasix. Optimize K replacement.Repeat CBC,CMP tomorrow.I appreciate PT input.
[2019-10-28] MEDS ORDERED: Warfarin 5 MG Tab PO ONE (16:00)
[2019-10-28] MEDS: cefTRIAXone 1 GM Vial IVPUSH SCH (18:18)
[2019-10-28] MEDS: Metoprolol Succinate 100 MG Tab.ER PO SCH (21:03)
[2019-10-28] MEDS: Ascorbic Acid 500 MG Tab PO SCH (21:04)
[2019-10-29] MEDS: metroNIDAZOLE/Normal Saline 500 MG in Premix Bag 1 BAG IV SCH (03:03)
[2019-10-29] MEDS: Sodium Chloride 0.9% 10 ML Syringe FLUSH PRN (03:04)
[2019-10-29] MEDS ORDERED: Furosemide 40 MG/4 ML VIAL IVPUSH SCH (08:00)
[2019-10-29] MEDS: Isosorbide Mononitrate 30 MG Tab.ER PO SCH ×2 (08:32→16:39)
[2019-10-29] MEDS: Potassium Chloride 20 MEQ Tab.ER PO SCH ×3 (08:33→20:08)
[2019-10-29] MEDS: Multivitamin Tab PO SCH (08:33)
[2019-10-29] MEDS: Acetaminophen 500 MG Tab PO SCH ×2 (08:33→20:10)
--- NOTE | 2019-10-29 08:59 | PCM.PN ---
- General Info Date of Service: 10/29/19 Subjective Update: Divina feels weak. She also has some diarrhea and chronic abdominal pain. No fever or cough. She has no chest pain today. Functional Status: Reports: Pain Controlled - Review of Systems HEENT: Reports: No Symptoms Pulmonary: Reports: Shortness of Breath Gastrointestinal: Reports: Abdominal Pain Genitourinary: Reports: No Symptoms Musculoskeletal: Reports: No Symptoms - Patient Data Vitals - Most Recent: Last Vital Signs Temp 98 F 10/28/19 23:30 Pulse 75 10/28/19 23:30 Resp 18 10/28/19 23:30 BP 143/82 H 10/29/19 08:32 Pulse Ox 100 10/29/19 00:35 Weight - Most Recent: 78.97 kg I&O - Last 24 Hours: Intake & Output 10/28/19 10/29/19 10/29/19 22:59 06:59 14:59 Intake Total 400 Output Total 500 600 Balance -100 -600 Lab Results Last 24 Hours: Laboratory Results - last 24 hr 10/29/19 10/29/19 10/29/19 Range/Units 06:45 06:45 06:45 WBC 5.6 (4.5-12.0) X10-3/uL RBC 3.81 (3.23-5.20) x10(6)uL Hgb 11.8 (11.5-15.5) g/dL Hct 36.1 (30.0-51.3) % MCV 94.7 (80-96) fL MCH 31.0 (27.7-33.6) pg MCHC 32.7 (32.2-35.4) g/dL RDW 12.2 (11.5-15.5) % Plt Count 164 (125-369) X10(3)uL MPV 10.5 H (7.4-10.4) fL Neut % (Auto) 58.0 (46-82) % Lymph % (Auto) 26.4 (13-37) % [place] % (Auto) 10.6 (4-12) % Eos % (Auto) 4 (1.0-5.0) % Baso % (Auto) 1 (0-2) % Neut # (Auto) 3.2 (1.6-8.3) # Lymph # (Auto) 1.5 (0.6-5.0) # [place] # (Auto) 0.6 (0.0-1.3) # Eos # (Auto) 0.2 (0.0-0.8) # Baso # (Auto) 0.1 (0.0-0.2) # PT 32.9 H (9.0-11.1) sec INR 3.30 H (1.00-1.24) Sodium (135-145) mmol/L Potassium (3.5-5.3) mmol/L Chloride (100-110) mmol/L Carbon Dioxide (21-32) mmol/L BUN (7-18) mg/dL Creatinine (0.55-1.02) mg/dL Est Cr Clr Drug Dosing mL/min Estimated GFR (MDRD) (>60) BUN/Creatinine Ratio (9-20) Glucose (80-116) mg/dL Calcium (8.6-10.2) mg/dL NT-Pro-B Natriuret Pep 5867 H* (<=450) pg/mL 10/29/19 Range/Units 06:45 WBC (4.5-12.0) X10-3/uL RBC (3.23-5.20) x10(6)uL Hgb (11.5-15.5) g/dL Hct (30.0-51.3) % MCV (80-96) fL MCH (27.7-33.6) pg MCHC (32.2-35.4) g/dL RDW (11.5-15.5) % Plt Count (125-369) X10(3)uL MPV (7.4-10.4) fL Neut % (Auto) (46-82) % Lymph % (Auto) (13-37) % [place] % (Auto) (4-12) % Eos % (Auto) (1.0-5.0) % Baso % (Auto) (0-2) % Neut # (Auto) (1.6-8.3) # Lymph # (Auto) (0.6-5.0) # [place] # (Auto) (0.0-1.3) # Eos # (Auto) (0.0-0.8) # Baso # (Auto) (0.0-0.2) # PT (9.0-11.1) sec INR (1.00-1.24) Sodium 138 (135-145) mmol/L Potassium 4.0 D (3.5-5.3) mmol/L Chloride 99 L (100-110) mmol/L Carbon Dioxide 34 H (21-32) mmol/L BUN 14 (7-18) mg/dL Creatinine 1.2 H (0.55-1.02) mg/dL Est Cr Clr Drug Dosing 23.28 mL/min Estimated GFR (MDRD) 42 L (>60) BUN/Creatinine Ratio 11.7 (9-20) Glucose 226 H (80-116) mg/dL Calcium 8.0 L (8.6-10.2) mg/dL NT-Pro-B Natriuret Pep (<=450) pg/mL Med Orders - Current: Current Medications Acetaminophen (Tylenol Extra Strength) 1,000 mg PO BEDTIME ON LICENSE OF [facility] Last Admin: 10/28/19 21:04 Dose: 1,000 mg Documented by: Acetaminophen (Tylenol Extra Strength) 500 mg PO DAILY ON LICENSE OF [facility] Last Admin: 10/29/19 08:33 Dose: 500 mg Documented by: Ascorbic Acid (Vitamin C) 1,000 mg PO BEDTIME ON LICENSE OF [facility] Last Admin: 10/28/19 21:04 Dose: 1,000 mg Documented by: Bisacodyl (Dulcolax) 5 mg PO DAILY PRN PRN Reason: Constipation Coenzyme Q10 (Coenzyme Q10) 100 mg PO QPM ON LICENSE OF [facility] Last Admin: 10/28/19 16:29 Dose: 100 mg Documented by: Docusate Sodium (Colace) 100 mg PO BID PRN PRN Reason: Constipation Furosemide (Lasix) 40 mg PO BIDDIURETIC ON LICENSE OF [facility] Isosorbide Mononitrate (Imdur) 90 mg PO DAILY ON LICENSE OF [facility] Last Admin: 10/29/19 08:32 Dose: 90 mg Documented by: Isosorbide Mononitrate (Imdur) 30 mg PO DAILY@1600 ON LICENSE OF [facility] Last Admin: 10/28/19 16:28 Dose: 30 mg Documented by: Levofloxacin (Levaquin) 250 mg PO Q24H ON LICENSE OF [facility] Metoprolol Succinate (Toprol Xl) 100 mg PO BEDTIME ON LICENSE OF [facility] Last Admin: 10/28/19 21:03 Dose: 100 mg Documented by: Metronidazole (Metronidazole) 250 mg PO Q8H ON LICENSE OF [facility] Multivitamins/Minerals/Vitamin C (Tab-A-Zachary) 1 tab PO DAILY ON LICENSE OF [facility] Last Admin: 10/29/19 08:33 Dose: 1 tab Documented by: Nitroglycerin (Nitrostat) 0.4 mg SL Q5M PRN PRN Reason: Chest Pain Ondansetron HCl (Zofran) 4 mg IV Q4H PRN PRN Reason: Nausea/Vomiting Potassium Chloride (Klor-Con M20) 20 meq PO BID ON LICENSE OF [facility] Sodium Chloride (Saline Flush) 10 ml FLUSH ASDIRECTED PRN PRN Reason: Keep Vein Open Last Admin: 10/29/19 03:04 Dose: 10 ml Documented by: Triamcinolone Acetonide (Triamcinolone Acetonide 0.1% Crm) 0 gm TOP BID PRN PRN Reason: Rash Warfarin Sodium (Coumadin Sliding Scale) 1 each PO ASDIRECTED ON LICENSE OF [facility] Discontinued Medications Acetaminophen (Tylenol Extra Strength) 500 mg PO BID ON LICENSE OF [facility] Stop: 10/26/19 12:00 Last Admin: 10/26/19 09:59 Dose: 500 mg Documented by: Aspirin (Aspirin) 324 mg PO ONETIME ONE Stop: 10/25/19 14:26 Last Admin: 10/25/19 14:54 Dose: 324 mg Documented by: Ceftriaxone Sodium (Rocephin) 1 gm IVPUSH Q24H ON LICENSE OF [facility] Last Admin: 10/28/19 18:18 Dose: 1 gm Documented by: Diatrizoate Meglum/Diatrizoate Sod (Gastrografin 37%) 30 ml PO . DIRECTED ONE Stop: 10/25/19 15:42 Last Admin: 10/25/19 22:37 Dose: Not Given Documented by: Diltiazem HCl (Diltiazem) 25 mg IVPUSH ONETIME ONE Stop: 10/25/19 14:26 Last Admin: 10/25/19 14:48 Dose: 25 mg Documented by: Furosemide (Lasix) 40 mg IVPUSH BID ON LICENSE OF [facility] Last Admin: 10/28/19 20:56 Dose: 40 mg Documented by: Furosemide (Lasix) 40 mg IVPUSH BIDDIURETIC ON LICENSE OF [facility] Last Admin: 10/29/19 08:31 Dose: 40 mg Documented by: Metronidazole 500 mg/ Premix 100 mls @ 100 mls/hr IV Q8H ON LICENSE OF [facility] Last Admin: 08/16/20 03:03 Dose: 100 mls/hr Documented by: Metolazone (Zaroxolyn) 2.5 mg PO ONETIME ONE Stop: 10/25/19 18:21 Last Admin: 10/25/19 20:33 Dose: 2.5 mg Documented by: Metolazone (Zaroxolyn) Confirm Administered Dose 2.5 mg .ROUTE .STK-MED ONE Stop: 10/25/19 20:32 Last Admin: 10/25/19 20:34 Dose: Not Given Documented by: Morphine Sulfate (Morphine) 2 mg IVPUSH ONETIME ONE Stop: 10/25/19 14:27 Last Admin: 10/25/19 14:48 Dose: 2 mg Documented by: Non-Formulary Medication (Cholecalciferol (Vitamin D3) [Vitamin D3]) 400 unit PO BEDTIME ON LICENSE OF [facility] Last Admin: 10/26/19 22:38 Dose: Not Given Documented by: Non-Formulary Medication (Fluocinolone Acetonide [Fluocinolone Acetonide]) 4 drop TOP ASDIRECTED PRN PRN Reason: Dizziness Non-Formulary Medication (Peppermint Oil Cap) 1 cap PO BEDTIME ON LICENSE OF [facility] Last Admin: 10/26/19 22:38 Dose: Not Given Documented by: Potassium Chloride (Klor-Con M20) 20 meq PO BID ON LICENSE OF [facility] Last Admin: 10/28/19 08:18 Dose: 20 meq Documented by: Potassium Chloride (Klor-Con M20) 40 meq PO TID ON LICENSE OF [facility] Last Admin: 10/29/19 08:33 Dose: 40 meq Documented by: Spironolactone (Aldactone) 12.5 mg PO DAILY ON LICENSE OF [facility] Warfarin Sodium (Coumadin) 5 mg PO ONETIME ONE Stop: 10/27/19 16:01 Last Admin: 10/27/19 16:19 Dose: 5 mg Documented by: Warfarin Sodium (Coumadin) 5 mg PO ONETIME ONE Stop: 10/28/19 16:01 Last Admin: 10/28/19 16:28 Dose: 5 mg Documented by: - Exam Quality Assessment: Supplemental Oxygen General: Alert Neck: Supple Lungs: Clear to Auscultation Cardiovascular: Regular Rate Neurological: No New Focal Deficit, Other (Tremors) Psy/Mental Status: Alert Sepsis Event Note - Evaluation Sepsis Screening Result: No Definite Risk - Focused Exam Vital Signs: Vital Signs Temp Pulse Pulse Resp BP BP Pulse Ox 10/29/19 08:32 143/82 H 10/29/19 00:35 100 10/28/19 23:30 98 F 75 18 136/74 10/28/19 21:03 76 138/76 - Problem List & Annotations (1) Chronic systolic congestive heart failure, NYHA class 3 SNOMED Code(s): 372981419, 134682706, 906248608 Code(s): I50.22 - CHRONIC SYSTOLIC (CONGESTIVE) HEART FAILURE Status: Chronic Current Visit: Yes (2) Ischemic cardiomyopathy SNOMED Code(s): 887151505 Code(s): I25.5 - ISCHEMIC CARDIOMYOPATHY Status: Acute Current Visit: Yes (3) Declining functional status SNOMED Code(s): 028656835695477 Code(s): R53.81 - OTHER MALAISE Status: Acute Current Visit: Yes (4) Diverticulitis SNOMED Code(s): 480714586 Code(s): K57.92 - DVTRCLI OF INTEST, PART UNSP, W/O PERF OR ABSCESS W/O BLEED Status: Acute Current Visit: Yes Annotation/Comment:: Rocephin & Flagyl day 2. (5) Diabetes mellitus type 2, diet-controlled SNOMED Code(s): 932097479780690, 558862162829958 Code(s): E11.9 - TYPE 2 DIABETES MELLITUS WITHOUT COMPLICATIONS Status: Chronic Current Visit: Yes (6) Hypokalemia SNOMED Code(s): 85779905 Code(s): E87.6 - HYPOKALEMIA Status: Acute Current Visit: Yes (7) Parkinson disease SNOMED Code(s): 20756561 Code(s): G20 - PARKINSON'S DISEASE Status: Acute Current Visit: Yes - Problem List Review Problem List Initiated/Reviewed/Updated: Yes - My Orders Last 24 Hours: My Active Orders 10/29/19 09:00 Potassium Chloride [Klor-Con M20] 20 meq PO BID levoFLOXacin [Levaquin] 250 mg PO Q24H metroNIDAZOLE 250 mg PO Q8H 10/29/19 Lunch Heart Healthy Diet [DIET] 10/29/19 14:00 Furosemide [Lasix] 40 mg PO BIDDIURETIC - Plan Plan:: Hypokalemia has improved. Reduce replacement. Advance diet. Switch to oral abx. Possible DC to [facility] tomorrow
[2019-10-29] MEDS ORDERED: metroNIDAZOLE 250 MG Tab ONE (11:43)
[2019-10-29] MEDS: Levofloxacin 250 MG Tab PO SCH (11:44)
[2019-10-29] MEDS: metroNIDAZOLE 250 MG Tab PO SCH ×2 (11:44→16:42)
[2019-10-29] MEDS ORDERED: Levofloxacin 250 MG Tab ONE (11:44)
[2019-10-29] MEDS: Furosemide 40 MG Tab PO SCH (15:06)
[2019-10-29] MEDS: Metoprolol Succinate 100 MG Tab.ER PO SCH (20:08)
[2019-10-29] MEDS: Ascorbic Acid 500 MG Tab PO SCH (20:10)
[2019-10-30] MEDS: metroNIDAZOLE 250 MG Tab PO SCH ×2 (00:52→09:40)
[2019-10-30] MEDS: Isosorbide Mononitrate 30 MG Tab.ER PO SCH (08:56)
[2019-10-30] MEDS: Acetaminophen 500 MG Tab PO SCH (08:57)
[2019-10-30] MEDS: Multivitamin Tab PO SCH (08:57)
[2019-10-30] MEDS: Potassium Chloride 20 MEQ Tab.ER PO SCH (09:40)
[2019-10-30] MEDS: Levofloxacin 250 MG Tab PO SCH (09:40)
[2019-10-30] MEDS: Furosemide 40 MG Tab PO SCH (09:40)
[2019-10-30] MEDS ORDERED: metroNIDAZOLE 500 MG Tab PO SCH (17:00)
--- NOTE | 2019-10-30 20:40 | DISCH ---
DISCHARGE DATE: 10/30/2019 REASON FOR ADMISSION: 1. Shortness of breath on exertion. 2. Ischemic cardiomyopathy. 3. Atrial fibrillation. 4. Diverticulitis, acute. 5. Type 2 diabetes. 6. Parkinson disease. 7. Debility and generalized weakness. DISCHARGE DIAGNOSES: 1. Shortness of breath on exertion. 2. Ischemic cardiomyopathy. 3. Atrial fibrillation. 4. Diverticulitis, acute. 5. Type 2 diabetes. 6. Parkinson disease. 7. Debility and generalized weakness. BRIEF HISTORY: This is a pleasant 89-year-old female who has a history of chronic CHF, ischemic cardiomyopathy, and AFib, was admitted for worsening shortness of breath and fluid overload. She lives alone. She also had some abdominal pain and thought to be due to diverticulitis. She was given Lasix 40 mg IV b.i.d. and also started on IV antibiotics, Rocephin, and Flagyl. She was then eventually switched to oral medications. She is deemed too weak to return home and attempts to discuss other placement was not acceptable to her. As such, a decision was made to admit her to swing bed for rehab, physical therapy, and to be able to return to home independently. She was discharged on Flagyl and oral ciprofloxacin, and will continue the Lasix orally 40 mg IV b.i.d. The rest of the home medications were continued as previously scheduled. Please note that I spent more than 35 minutes in the discharge of the patient. /[id number] KATHIA/MARÍA
== END 2019-10-30 10:30 | disposition swing bed (61) | DRG 391 ==
LOC: FB.ED 12:09 → FB.MS 18:05
PROVIDERS: ADMIT Family Medicine; ATTEND Family Medicine
DX: K57.32 Diverticulitis of large intestine without perforation or abscess without bleeding (principal); K57.92 Diverticulitis of intestine, part unspecified, without perforation or abscess without bleeding; R07.9 Chest pain, unspecified; H40.9 Unspecified glaucoma; H35.30 Unspecified macular degeneration; I50.23 Acute on chronic systolic (congestive) heart failure; I50.9 Heart failure, unspecified; I69.354 Hemiplegia and hemiparesis following cerebral infarction affecting left non-dominant side; E87.6 Hypokalemia; I11.0 Hypertensive heart disease with heart failure; I25.5 Ischemic cardiomyopathy; G20 Parkinson's disease; I48.91 Unspecified atrial fibrillation; K59.00 Constipation, unspecified; F41.9 Anxiety disorder, unspecified; F32.9 Major depressive disorder, single episode, unspecified; Z98.42 Cataract extraction status, left eye; Z98.41 Cataract extraction status, right eye; Z90.710 Acquired absence of both cervix and uterus; M19.90 Unspecified osteoarthritis, unspecified site; E11.9 Type 2 diabetes mellitus without complications; N28.9 Disorder of kidney and ureter, unspecified; I20.9 Angina pectoris, unspecified; Z88.2 Allergy status to sulfonamides; Z88.0 Allergy status to penicillin; E66.9 Obesity, unspecified; Z79.899 Other long term (current) drug therapy; I25.2 Old myocardial infarction; Z95.5 Presence of coronary angioplasty implant and graft; Z87.01 Personal history of pneumonia (recurrent); Z79.01 Long term (current) use of anticoagulants; Z68.34 Body mass index [BMI] 34.0-34.9, adult
CPT/HCPCS: 36415; 71045; 74176; 80053; 81001; 83880; 84484; 85025; 85610; 93005; 96374; 96375; 99285; A9270; J2270; J3490; Q9963; 80048; 97161-GP; 97165-GO; J0696; J1940

== ENCOUNTER 2019-10-30 10:31 | Inpatient (IN) | payer MEDICARE ==
--- NOTE | 2019-10-30 11:28 | PCM.HP.2 ---
H&P History of Present Illness - General Date of Service: 10/30/19 Admit Problem/Dx: Admission Diagnosis/Problem Admission Diagnosis/Problem Weakness Source of Information: Patient History Limitations: Reports: No Limitations - History of Present Illness Initial Comments - Free Text/Narative: Divina is an 89-year-old female who was admitted to swing bed today. She was in the medical bed, with ischemic cardiomyopathy, acute diverticulitis, CHF exacerbation. She is improved but still weak to return home independently. Her history also includes HTN, hypokalemia, Parkinson's disease, and type 2 diabetes. - Related Data Allergies/Adverse Reactions: Allergies Allergy/AdvReac Type Severity Reaction Status Date / Time Penicillins Allergy Rash Verified 10/25/19 19:22 Sulfa (Sulfonamide Allergy Rash Verified 10/25/19 19:22 Antibiotics) Home Medications: Home Meds Docusate Sodium 100 mg PO BID PRN 03/14/19 [History] Fluocinolone Acetonide 4 drop EARBOTH ASDIRECTED PRN 03/14/19 [History] Isosorbide Mononitrate [Imdur] 90 mg PO DAILY 03/14/19 [History] Metoprolol Succinate [Toprol XL 100mg] 100 mg PO BEDTIME 03/14/19 [History] Nitroglycerin 0.4 mg SL Q5M PRN 03/14/19 [History] Peppermint Oil Cap 1 cap PO BEDTIME 03/14/19 [History] Triamcinolone Acetonide [Triamcinolone Acetonide 0.1% Crm] 1 applic TOP BID PRN 03/14/19 [History] Ubidecarenone [Coenzyme Q10] 100 mg PO QPM 03/14/19 [History] Warfarin [Coumadin] 5 mg PO DAILY 03/14/19 [History] lisinopriL [Zestril] 10 mg PO DAILY 03/14/19 [History] nitrofurantoin macrocrystaL [Macrodantin] 50 mg PO MOWEFR@2100 03/14/19 [History] Acetaminophen [Tylenol Extra Strength] 1,000 mg PO BEDTIME 10/26/19 [History] Cholecalciferol (Vitamin D3) [Vitamin D3] 10 mcg PO DAILY 10/26/19 [History] Acetaminophen [Tylenol Extra Strength] 500 mg PO DAILY tablet 10/30/19 [Rx] Ascorbic Acid [Vitamin C] 1,000 mg PO BEDTIME tablet 10/30/19 [Rx] Furosemide [Lasix] 40 mg PO BIDDIURETIC tablet 10/30/19 [Rx] Isosorbide Mononitrate [Imdur] 30 mg PO DAILY@1600 tab.er 10/30/19 [Rx] Multivitamins [Tab-A-Zachary] 1 tab PO DAILY tablet 10/30/19 [Rx] Potassium Chloride [Klor-Con M20] 20 meq PO BID tab.er 10/30/19 [Rx] bisacodyL [Dulcolax] 5 mg PO DAILY PRN tablet 10/30/19 [Rx] levoFLOXacin [Levaquin] 250 mg PO Q24H tablet 10/30/19 [Rx] metroNIDAZOLE [Flagyl] 500 mg PO Q8H tablet 10/30/19 [Rx] Past Medical History HEENT History: Reports: Glaucoma, Macular Degeneration Cardiovascular History: Reports: Afib, Heart Failure, Hypertension, [place], Stents Respiratory History: Reports: Pneumonia, Recurrent Gastrointestinal History: Reports: Diverticulosis Genitourinary History: Reports: None 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: Other OB/BYN History: Musculoskeletal History: Reports: Arthritis Neurological History: Reports: Concussion, CVA, Migraines, Parkinson's, Vertigo Other Neuro History: CVA with L sided weakness Psychiatric History: Reports: Anxiety, Depression Endocrine/Metabolic History: Reports: Diabetes, Type II, Obesity/BMI 30+ Hematologic History: Reports: Anticoagulation Therapy - Infectious Disease History Infectious Disease History: Reports: Shingles - Past Surgical History HEENT Surgical History: Reports: Cataract Surgery Other HEENT Surgeries/Procedures: bilat cataract Cardiovascular Surgical History: Reports: Coronary Artery Stent GI Surgical History: Reports: Colonoscopy, Other (See Below) Other GI Surgeries/Procedures: exp lap Female Surgical History: Reports: Hysterectomy Social & Family History - Family History Family Medical History: Noncontributory - Caffeine Use Caffeine Use: Reports: Coffee, Soda H&P Review of Systems - Review of Systems: Review Of Systems: Comprehensive ROS is negative, except as noted in HPI. Exam - Exam Exam: See Below - Exam Quality Assessment: Supplemental Oxygen General: Alert HEENT: PERRLA Neck: Supple Lungs: Clear to Auscultation Cardiovascular: Regular Rate GI/Abdominal Exam: Normal Bowel Sounds, Soft Rectal (Female) Exam: Deferred Extremities: Normal Inspection Skin: Warm Neurological: Other (Tremors at rest) Neuro Extensive - Mental Status: Alert, Oriented x3 Neuro Extensive - Motor, Sensory, Reflexes: CN II-XII Intact Psychiatric: Alert - Problem List (1) Debility SNOMED Code(s): 01346953 ICD Code: R53.81 - OTHER MALAISE Status: Acute Current Visit: Yes (2) Ischemic cardiomyopathy SNOMED Code(s): 645999822 ICD Code: I25.5 - ISCHEMIC CARDIOMYOPATHY Status: Acute Current Visit: Yes (3) Acute diverticulitis SNOMED Code(s): 276728536 ICD Code: K57.92 - DVTRCLI OF INTEST, PART UNSP, W/O PERF OR ABSCESS W/O BLEED Status: Acute Current Visit: Yes (4) Parkinson disease SNOMED Code(s): 60463617 ICD Code: G20 - PARKINSON'S DISEASE Status: Acute Current Visit: No (5) Afib SNOMED Code(s): 93769559 ICD Code: I48.91 - UNSPECIFIED ATRIAL FIBRILLATION Status: Chronic Current Visit: No Qualifiers: Atrial fibrillation type: longstanding persistent Qualified Code(s): I48.11 - Longstanding persistent atrial fibrillation (6) Diabetes mellitus type 2, diet-controlled SNOMED Code(s): 506713589657337, 990971248199337 ICD Code: E11.9 - TYPE 2 DIABETES MELLITUS WITHOUT COMPLICATIONS Status: Chronic Current Visit: No Problem List Initiated/Reviewed/Updated: Yes Orders Last 24hrs: Active Orders 24 hr Category Date Time Status Patient Status [ADT] Routine ADT 10/30/19 11:14 Active Height and Weight [RC] WEEKLY Care 10/30/19 11:14 Active Oxygen Therapy [RC] PRN Care 10/30/19 11:14 Active Up With Assistance [RC] ASDIRECTED Care 10/30/19 11:14 Active VTE/DVT Education [RC] Per Unit Routine Care 10/30/19 11:14 Active Vital Signs [RC] PER UNIT ROUTINE Care 10/30/19 11:14 Active OT Evaluation and Treatment [CONS] Routine Cons 10/30/19 11:14 Active PT Evaluation and Treatment [CONS] Routine Cons 10/30/19 11:14 Active Regular Diet [DIET] Diet 10/30/19 Breakfast Active Resuscitation Status Routine Resus Stat 10/30/19 11:14 Ordered Assessment/Plan Comment:: Admit to swing bed. Continue oral antibiotics, and oral diuretics. Consulted physical and occupational therapy.She still wants,and family too,to return home independently.
[2019-10-30] MEDS ORDERED: Docusate Sodium 100 MG Cap PO PRN (11:33)
[2019-10-30] MEDS ORDERED: Triamcinolone Acetonide 0.1% Crm 15 GM Tube TOP PRN (11:33)
[2019-10-30] MEDS ORDERED: Nitroglycerin 0.4 MG Tab.SL SL PRN (11:33)
[2019-10-30] MEDS ORDERED: Bisacodyl 5 MG Tab PO PRN (11:33)
[2019-10-30] MEDS ORDERED: Warfarin Sliding Scale PO SCH (12:00)
[2019-10-30] MEDS: Furosemide 40 MG Tab PO SCH (15:28)
[2019-10-30] MEDS: Isosorbide Mononitrate 30 MG Tab.ER PO SCH (16:20)
[2019-10-30] MEDS: metroNIDAZOLE 500 MG Tab PO SCH (16:25)
[2019-10-30] MEDS: Potassium Chloride 20 MEQ Tab.ER PO SCH (20:05)
[2019-10-30] MEDS: Metoprolol Succinate 100 MG Tab.ER PO SCH (20:05)
[2019-10-30] MEDS: Ascorbic Acid 500 MG Tab PO SCH (20:06)
[2019-10-30] MEDS: Acetaminophen 500 MG Tab PO SCH (20:06)
[2019-10-31] MEDS: metroNIDAZOLE 500 MG Tab PO SCH ×3 (01:15→16:25)
[2019-10-31] MEDS ORDERED: LORazepam 0.5 MG Tab PO ONE (04:07)
[2019-10-31] MEDS ORDERED: Nitroglycerin 0.4 MG Tab.SL SL ONE (04:44)
--- NOTE | 2019-10-31 05:31 | PCM.SN.2 ---
- Free Text/Narrative Note: several c/o unable to sleep feeling anxious, Ativan 0.5 mg IV x 1 did allow her to rest temporarily but did not remain asleep states she is weak, yet vss and BP stable states she is having 7/10 CP, yet HR 60s, BP ~137/74 trop neg, EKG neg for acute changes, in afib with Qs in all chest leads, no ST changes after NTG SL x 1 CP better altho not gone, however decrease in BP ~123/54 pt currently on Imdur 90 mg qAM and 30 mg qPM, cannot safely give additional NTG SL ASSESS nonspecific CP with stable vs and neg trop/EKG PLAN cannot exclude angina altho seems unlikely (no associated sxs, no evidence of adrenergic stress), current meds are at maximum tolerated doses, continue monitoring and medical management
[2019-10-31] MEDS: Furosemide 40 MG Tab PO SCH ×2 (08:16→13:05)
[2019-10-31] MEDS: Isosorbide Mononitrate 30 MG Tab.ER PO SCH ×2 (08:17→16:24)
[2019-10-31] MEDS: Potassium Chloride 20 MEQ Tab.ER PO SCH ×2 (08:18→20:34)
[2019-10-31] MEDS: Acetaminophen 500 MG Tab PO SCH ×2 (08:20→20:37)
[2019-10-31] MEDS: Levofloxacin 250 MG Tab PO SCH (08:20)
[2019-10-31] MEDS ORDERED: Multivitamin Tab PO SCH (09:00)
[2019-10-31] MEDS ORDERED: Warfarin 5 MG Tab PO SCH (09:00)
[2019-10-31] MEDS ORDERED: Warfarin 2.5 MG Tab PO SCH (16:00)
[2019-10-31] MEDS: Ascorbic Acid 500 MG Tab PO SCH (20:37)
[2019-10-31] MEDS: Metoprolol Succinate 100 MG Tab.ER PO SCH (20:38)
[2019-11-01] MEDS: metroNIDAZOLE 500 MG Tab PO SCH ×3 (00:01→17:01)
[2019-11-01] MEDS: Furosemide 40 MG Tab PO SCH ×2 (08:02→13:33)
[2019-11-01] MEDS: Isosorbide Mononitrate 30 MG Tab.ER PO SCH ×2 (08:40→17:00)
[2019-11-01] MEDS: Potassium Chloride 20 MEQ Tab.ER PO SCH ×2 (08:40→20:40)
[2019-11-01] MEDS: Acetaminophen 500 MG Tab PO SCH ×2 (08:41→20:41)
[2019-11-01] MEDS: Levofloxacin 250 MG Tab PO SCH (08:44)
[2019-11-01] MEDS: Multivitamin Tab PO SCH (11:24)
[2019-11-01] MEDS ORDERED: Warfarin 5 MG Tab PO ONE (16:00)
[2019-11-01] MEDS: Ascorbic Acid 500 MG Tab PO SCH (20:41)
[2019-11-01] MEDS: Metoprolol Succinate 100 MG Tab.ER PO SCH (20:45)
[2019-11-02] MEDS: metroNIDAZOLE 500 MG Tab PO SCH ×3 (00:01→17:51)
[2019-11-02] MEDS: Furosemide 40 MG Tab PO SCH ×2 (08:22→14:07)
[2019-11-02] MEDS: Isosorbide Mononitrate 30 MG Tab.ER PO SCH ×2 (08:23→16:41)
[2019-11-02] MEDS: Potassium Chloride 20 MEQ Tab.ER PO SCH ×2 (08:23→20:56)
[2019-11-02] MEDS: Acetaminophen 500 MG Tab PO SCH ×2 (08:24→20:56)
[2019-11-02] MEDS: Levofloxacin 250 MG Tab PO SCH (08:24)
[2019-11-02] MEDS: Multivitamin Tab PO SCH (12:10)
[2019-11-02] MEDS ORDERED: Warfarin 2.5 MG Tab PO ONE (16:00)
[2019-11-02] MEDS: Metoprolol Succinate 100 MG Tab.ER PO SCH (20:56)
[2019-11-02] MEDS: Ascorbic Acid 500 MG Tab PO SCH (20:56)
[2019-11-03] MEDS: metroNIDAZOLE 500 MG Tab PO SCH ×2 (00:58→08:13)
[2019-11-03] MEDS: Furosemide 40 MG Tab PO SCH (08:12)
[2019-11-03] MEDS: Potassium Chloride 20 MEQ Tab.ER PO SCH (08:15)
[2019-11-03] MEDS: Isosorbide Mononitrate 30 MG Tab.ER PO SCH (08:16)
[2019-11-03] MEDS: Levofloxacin 250 MG Tab PO SCH (08:16)
[2019-11-03] MEDS: Acetaminophen 500 MG Tab PO SCH (08:16)
--- NOTE | 2019-11-03 09:12 | PCM.PN ---
- General Info Date of Service: 11/03/19 Admission Dx/Problem (Free Text): Patient states she has little abdominal pain both right and left lower quadrant but it's improving. She was having diarrhea and the left scar in her stool started to form. She denies fevers, chills. She always has little shortness of breath and uses oxygen all the time. - Patient Data Vitals - Most Recent: Last Vital Signs Temp 97.7 F 11/02/19 08:00 Pulse 66 11/02/19 20:56 Resp 18 11/02/19 08:00 BP 126/83 11/03/19 08:16 Pulse Ox 100 11/03/19 00:00 Weight - Most Recent: 175 lb 3 oz I&O - Last 24 Hours: Intake & Output 11/02/19 11/03/19 11/03/19 22:59 06:59 14:59 Intake Total 100 Balance 100 Lab Results Last 24 Hours: Laboratory Results - last 24 hr 11/03/19 Range/Units 06:30 PT 38.9 H* (9.0-11.1) sec INR 3.94 H (1.00-1.24) Med Orders - Current: Current Medications Acetaminophen (Tylenol Extra Strength) 500 mg PO DAILY [facility] Last Admin: 11/03/19 08:16 Dose: 500 mg Documented by: Acetaminophen (Tylenol Extra Strength) 1,000 mg PO BEDTIME [facility] Last Admin: 11/02/19 20:56 Dose: 1,000 mg Documented by: Ascorbic Acid (Vitamin C) 1,000 mg PO BEDTIME [facility] Last Admin: 11/02/19 20:56 Dose: 1,000 mg Documented by: Bisacodyl (Dulcolax) 5 mg PO DAILY PRN PRN Reason: Constipation Coenzyme Q10 (Coenzyme Q10) 100 mg PO QPM [facility] Last Admin: 11/02/19 17:51 Dose: 100 mg Documented by: Docusate Sodium (Colace) 100 mg PO BID PRN PRN Reason: Constipation Furosemide (Lasix) 40 mg PO BIDDIURETIC [facility] Last Admin: 11/03/19 08:12 Dose: 40 mg Documented by: Isosorbide Mononitrate (Imdur) 30 mg PO DAILY@1600 [facility] Last Admin: 11/02/19 16:41 Dose: 30 mg Documented by: Isosorbide Mononitrate (Imdur) 90 mg PO DAILY [facility] Last Admin: 11/03/19 08:16 Dose: 90 mg Documented by: Metoprolol Succinate (Toprol Xl) 100 mg PO BEDTIME [facility] Last Admin: 11/02/19 20:56 Dose: 100 mg Documented by: Metronidazole (Flagyl) 500 mg PO Q8H [facility] Stop: 11/04/19 09:01 Last Admin: 11/03/19 08:13 Dose: 500 mg Documented by: Multivitamins/Minerals/Vitamin C (Tab-A-Zachary) 1 tab PO DAILY@1200 [facility] Last Admin: 11/02/19 12:10 Dose: 1 tab Documented by: Nitroglycerin (Nitrostat) 0.4 mg SL Q5M PRN PRN Reason: Chest Pain Potassium Chloride (Klor-Con M20) 20 meq PO BID [facility] Last Admin: 11/03/19 08:15 Dose: 20 meq Documented by: Triamcinolone Acetonide (Triamcinolone Acetonide 0.1% Crm) 0 gm TOP BID PRN PRN Reason: Rash Warfarin Sodium (Coumadin Sliding Scale) 1 each PO ASDIRECTED [facility] Discontinued Medications Levofloxacin (Levaquin) 250 mg PO Q24H [facility] Stop: 11/03/19 09:01 Last Admin: 11/03/19 08:16 Dose: 250 mg Documented by: Lorazepam (Ativan) 0.5 mg PO ONETIME ONE Stop: 10/31/19 04:08 Last Admin: 10/31/19 04:25 Dose: 0.5 mg Documented by: Multivitamins/Minerals/Vitamin C (Tab-A-Zachary) 1 tab PO DAILY [facility] Last Admin: 10/31/19 08:20 Dose: 1 tab Documented by: Nitroglycerin (Nitrostat) 0.4 mg SL ONETIME ONE Stop: 10/31/19 04:45 Last Admin: 10/31/19 05:18 Dose: 0.4 mg Documented by: Warfarin Sodium (Coumadin) 2.5 mg PO 1600 [facility] Last Admin: 10/31/19 16:24 Dose: 2.5 mg Documented by: Warfarin Sodium (Coumadin) 5 mg PO ONETIME ONE Stop: 11/01/19 16:01 Last Admin: 11/01/19 17:00 Dose: 5 mg Documented by: Warfarin Sodium (Coumadin) 2.5 mg PO ONETIME ONE Stop: 11/02/19 16:01 Last Admin: 11/02/19 16:41 Dose: 2.5 mg Documented by: - Exam General: Alert, Oriented, Cooperative Lungs: Clear to Auscultation, Normal Respiratory Effort. No: Crackles, Rales, Rhonchi Cardiovascular: Regular Rate, No Murmurs, Irregular Rhythm Extremities: No Pedal Edema Sepsis Event Note - Evaluation Sepsis Screening Result: No Definite Risk - Focused Exam Vital Signs: Vital Signs BP Pulse Ox 11/03/19 08:16 126/83 11/03/19 00:00 100 - Problem List & Annotations (1) Acute diverticulitis SNOMED Code(s): 113943250 Code(s): K57.92 - DVTRCLI OF INTEST, PART UNSP, W/O PERF OR ABSCESS W/O BLEED Status: Acute Current Visit: Yes (2) Ischemic cardiomyopathy SNOMED Code(s): 651255018 Code(s): I25.5 - ISCHEMIC CARDIOMYOPATHY Status: Acute Current Visit: Yes (3) Acute renal insufficiency SNOMED Code(s): 103202321 Code(s): N28.9 - DISORDER OF KIDNEY AND URETER, UNSPECIFIED Status: Acute Current Visit: No (4) Declining functional status SNOMED Code(s): 066458245310585 Code(s): R53.81 - OTHER MALAISE Status: Acute Current Visit: No (5) Hypokalemia SNOMED Code(s): 74351370 Code(s): E87.6 - HYPOKALEMIA Status: Acute Current Visit: No (6) Parkinson disease SNOMED Code(s): 33071370 Code(s): G20 - PARKINSON'S DISEASE Status: Acute Current Visit: No (7) Weakness SNOMED Code(s): 87179940 Code(s): R53.1 - WEAKNESS Status: Acute Current Visit: No (8) Afib SNOMED Code(s): 59762162 Code(s): I48.91 - UNSPECIFIED ATRIAL FIBRILLATION Status: Chronic Current Visit: No Qualifiers: Atrial fibrillation type: longstanding persistent Qualified Code(s): I48.11 - Longstanding persistent atrial fibrillation (9) Diabetes mellitus type 2, diet-controlled SNOMED Code(s): 393352250008929, 119084102460202 Code(s): E11.9 - TYPE 2 DIABETES MELLITUS WITHOUT COMPLICATIONS Status: Chronic Current Visit: No - Problem List Review Problem List Initiated/Reviewed/Updated: Yes - My Orders Last 24 Hours: My Active Orders 11/03/19 08:47 Ready for Discharge [RC] PER UNIT ROUTINE - Plan Plan:: Discharge to home with home health nurse. Last day of Levaquin today. She needs more day and metronidazole. Start 2.5 mg of Glucotrol XL once a day.
--- NOTE | 2019-11-03 09:13 | PCM.DCSUM1 ---
Discharge Summary - Hospital Course Free Text/Narrative:: Swing bed course-patient did well with PT/OT and increase in her strength and ambulation. It was discussed whether she should go to [facility] long term. But she refuses. Blood sugars were in the 200s when she was here. She was treated with Rocephin initially and then Levaquin up to 10 days total. She is also put on metronidazole and she'll have to do one more course tomorrow when she leaves. She'll be sent home on home health with the nurse to help her out. Recheck in one week. Brief History: Divina is an 89-year-old female who was admitted to swing bed today. She was in the medical bed, with ischemic cardiomyopathy, acute diverticulitis, CHF exacerbation. She is improved but still weak to return home independently. Her history also includes HTN, hypokalemia, Parkinson's disease, and type 2 diabetes. Diagnosis: Stroke: No - Discharge Data Discharge Date: 11/03/19 Discharge Disposition: Home, W Home Health Agency Condition: Good - Referral to Home Health Date of Face to Face Encounter: 11/03/19 Reason for Homebound Status: Weakness, pneumonia, diverticulitis, diabetes Primary Care Physician: Jacky Ryder MD Skilled Need: Medication management, home safety, helps with cares and ADLs. - Discharge Diagnosis/Problem(s) (1) Acute diverticulitis SNOMED Code(s): 183871231 ICD Code: K57.92 - DVTRCLI OF INTEST, PART UNSP, W/O PERF OR ABSCESS W/O BLEED Status: Acute Current Visit: Yes (2) Ischemic cardiomyopathy SNOMED Code(s): 968390305 ICD Code: I25.5 - ISCHEMIC CARDIOMYOPATHY Status: Acute Current Visit: Yes (3) Acute renal insufficiency SNOMED Code(s): 569296661 ICD Code: N28.9 - DISORDER OF KIDNEY AND URETER, UNSPECIFIED Status: Acute Current Visit: No (4) Declining functional status SNOMED Code(s): 798759813405751 ICD Code: R53.81 - OTHER MALAISE Status: Acute Current Visit: No (5) Hypokalemia SNOMED Code(s): 72506156 ICD Code: E87.6 - HYPOKALEMIA Status: Acute Current Visit: No (6) Parkinson disease SNOMED Code(s): 93703042 ICD Code: G20 - PARKINSON'S DISEASE Status: Acute Current Visit: No (7) Weakness SNOMED Code(s): 24623183 ICD Code: R53.1 - WEAKNESS Status: Acute Current Visit: No (8) Afib SNOMED Code(s): 74633969 ICD Code: I48.91 - UNSPECIFIED ATRIAL FIBRILLATION Status: Chronic Current Visit: No Qualifiers: Atrial fibrillation type: longstanding persistent Qualified Code(s): I48.11 - Longstanding persistent atrial fibrillation (9) Diabetes mellitus type 2, diet-controlled SNOMED Code(s): 717432441457657, 256472413106624 ICD Code: E11.9 - TYPE 2 DIABETES MELLITUS WITHOUT COMPLICATIONS Status: Chronic Current Visit: No - Patient Summary/Data Consults: Consultations 10/30/19 11:14 OT Evaluation and Treatment [CONS] Routine Please Evaluate and Treat. OT Reason for Consult: ADL's This query below is only for informational purposes and is not editable. PT Evaluation and Treatment [CONS] Routine Please Evaluate and Treat. PT Reason for Consult: Ambulation This query below is only for informational purposes and is not editable. - Patient Instructions Diet: Diabetic Diet Activity: As Tolerated Driving: Do Not Drive Notify Provider of: Fever, Increased Pain, Swelling and Redness, Nausea and/or Vomiting Other/Special Instructions: 1. Recheck with Dr. Ryder in 1 week. 2. Hold Coumadin until Wednesday. Home health to draw the INR on Wednesday consented to the Coumadin clinic and then adjust Coumadin dose. 3. Home health for nursing. - Discharge Plan Prescriptions/Med Rec: metroNIDAZOLE [Flagyl] 500 mg PO Q8H #3 tablet glipiZIDE [Glucotrol XL] 2.5 mg PO DAILY #30 tab.er.24 Furosemide [Lasix] 40 mg PO BIDDIURETIC #0 tablet Home Medications: Home Meds Docusate Sodium 100 mg PO BID PRN 03/14/19 [History] Fluocinolone Acetonide 4 drop EARBOTH ASDIRECTED PRN 03/14/19 [History] Isosorbide Mononitrate [Imdur] 90 mg PO DAILY 03/14/19 [History] Metoprolol Succinate [Toprol XL 100mg] 100 mg PO BEDTIME 03/14/19 [History] Nitroglycerin 0.4 mg SL Q5M PRN 03/14/19 [History] Peppermint Oil Cap 1 cap PO BEDTIME 03/14/19 [History] Triamcinolone Acetonide [Triamcinolone Acetonide 0.1% Crm] 1 applic TOP BID PRN 03/14/19 [History] Ubidecarenone [Coenzyme Q10] 100 mg PO QPM 03/14/19 [History] Warfarin [Coumadin] 5 mg PO DAILY 03/14/19 [History] lisinopriL [Zestril] 10 mg PO DAILY 03/14/19 [History] nitrofurantoin macrocrystaL [Macrodantin] 50 mg PO MOWEFR@2100 03/14/19 [History] Acetaminophen [Tylenol Extra Strength] 1,000 mg PO BEDTIME 10/26/19 [History] Cholecalciferol (Vitamin D3) [Vitamin D3] 10 mcg PO DAILY 10/26/19 [History] Acetaminophen [Tylenol Extra Strength] 500 mg PO DAILY tablet 10/30/19 [Rx] Ascorbic Acid [Vitamin C] 1,000 mg PO BEDTIME tablet 10/30/19 [Rx] Isosorbide Mononitrate [Imdur] 30 mg PO DAILY@1600 tab.er 10/30/19 [Rx] Multivitamins [Tab-A-Zachary] 1 tab PO DAILY tablet 10/30/19 [Rx] bisacodyL [Dulcolax] 5 mg PO DAILY PRN tablet 10/30/19 [Rx] Furosemide [Lasix] 40 mg PO BIDDIURETIC #0 tablet 11/03/19 [Rx] Furosemide [Lasix] 40 mg PO DAILY #0 tablet 11/03/19 [Rx] glipiZIDE [Glucotrol XL] 2.5 mg PO DAILY #30 tab.er.24 11/03/19 [Rx] metroNIDAZOLE [Flagyl] 500 mg PO Q8H #3 tablet 11/03/19 [Rx] - Discharge Summary/Plan Comment DC Time >30 min.: No - Patient Data Vitals - Most Recent: Last Vital Signs Temp 97.7 F 11/02/19 08:00 Pulse 66 11/02/19 20:56 Resp 18 11/02/19 08:00 BP 126/83 11/03/19 08:16 Pulse Ox 100 11/03/19 00:00 Weight - Most Recent: 175 lb 3 oz I&O - Last 24 hours: Intake & Output 11/02/19 11/03/19 11/03/19 22:59 06:59 14:59 Intake Total 100 Balance 100 Lab Results - Last 24 hrs: Laboratory Results - last 24 hr 11/03/19 Range/Units 06:30 PT 38.9 H* (9.0-11.1) sec INR 3.94 H (1.00-1.24) Med Orders - Current: Current Medications Acetaminophen (Tylenol Extra Strength) 500 mg PO DAILY [facility] Last Admin: 11/03/19 08:16 Dose: 500 mg Documented by: Acetaminophen (Tylenol Extra Strength) 1,000 mg PO BEDTIME [facility] Last Admin: 11/02/19 20:56 Dose: 1,000 mg Documented by: Ascorbic Acid (Vitamin C) 1,000 mg PO BEDTIME [facility] Last Admin: 11/02/19 20:56 Dose: 1,000 mg Documented by: Bisacodyl (Dulcolax) 5 mg PO DAILY PRN PRN Reason: Constipation Coenzyme Q10 (Coenzyme Q10) 100 mg PO QPM [facility] Last Admin: 11/02/19 17:51 Dose: 100 mg Documented by: Docusate Sodium (Colace) 100 mg PO BID PRN PRN Reason: Constipation Furosemide (Lasix) 40 mg PO BIDDIURETIC [facility] Last Admin: 11/03/19 08:12 Dose: 40 mg Documented by: Isosorbide Mononitrate (Imdur) 30 mg PO DAILY@1600 [facility] Last Admin: 11/02/19 16:41 Dose: 30 mg Documented by: Isosorbide Mononitrate (Imdur) 90 mg PO DAILY [facility] Last Admin: 11/03/19 08:16 Dose: 90 mg Documented by: Metoprolol Succinate (Toprol Xl) 100 mg PO BEDTIME [facility] Last Admin: 11/02/19 20:56 Dose: 100 mg Documented by: Metronidazole (Flagyl) 500 mg PO Q8H [facility] Stop: 11/04/19 09:01 Last Admin: 11/03/19 08:13 Dose: 500 mg Documented by: Multivitamins/Minerals/Vitamin C (Tab-A-Zachary) 1 tab PO DAILY@1200 [facility] Last Admin: 11/02/19 12:10 Dose: 1 tab Documented by: Nitroglycerin (Nitrostat) 0.4 mg SL Q5M PRN PRN Reason: Chest Pain Potassium Chloride (Klor-Con M20) 20 meq PO BID [facility] Last Admin: 11/03/19 08:15 Dose: 20 meq Documented by: Triamcinolone Acetonide (Triamcinolone Acetonide 0.1% Crm) 0 gm TOP BID PRN PRN Reason: Rash Warfarin Sodium (Coumadin Sliding Scale) 1 each PO ASDIRECTED [facility] Discontinued Medications Levofloxacin (Levaquin) 250 mg PO Q24H [facility] Stop: 11/03/19 09:01 Last Admin: 11/03/19 08:16 Dose: 250 mg Documented by: Lorazepam (Ativan) 0.5 mg PO ONETIME ONE Stop: 10/31/19 04:08 Last Admin: 10/31/19 04:25 Dose: 0.5 mg Documented by: Multivitamins/Minerals/Vitamin C (Tab-A-Zachary) 1 tab PO DAILY [facility] Last Admin: 10/31/19 08:20 Dose: 1 tab Documented by: Nitroglycerin (Nitrostat) 0.4 mg SL ONETIME ONE Stop: 10/31/19 04:45 Last Admin: 10/31/19 05:18 Dose: 0.4 mg Documented by: Warfarin Sodium (Coumadin) 2.5 mg PO 1600 [facility] Last Admin: 10/31/19 16:24 Dose: 2.5 mg Documented by: Warfarin Sodium (Coumadin) 5 mg PO ONETIME ONE Stop: 11/01/19 16:01 Last Admin: 11/01/19 17:00 Dose: 5 mg Documented by: Warfarin Sodium (Coumadin) 2.5 mg PO ONETIME ONE Stop: 11/02/19 16:01 Last Admin: 11/02/19 16:41 Dose: 2.5 mg Documented by:
[2019-11-03] MEDS: Multivitamin Tab PO SCH (12:04)
== END 2019-11-03 13:00 | disposition home health service (06) | DRG 948 ==
LOC: FB.MS 10:31
PROVIDERS: ADMIT Family Medicine; ATTEND Family Medicine
DX: R53.81 Other malaise (principal); K57.92 Diverticulitis of intestine, part unspecified, without perforation or abscess without bleeding; I48.11 Longstanding persistent atrial fibrillation; I69.954 Hemiplegia and hemiparesis following unspecified cerebrovascular disease affecting left non-dominant side; I50.22 Chronic systolic (congestive) heart failure; I25.5 Ischemic cardiomyopathy; I11.0 Hypertensive heart disease with heart failure; N28.9 Disorder of kidney and ureter, unspecified; G20 Parkinson's disease; E87.6 Hypokalemia; F41.9 Anxiety disorder, unspecified; Z66 Do not resuscitate; F32.9 Major depressive disorder, single episode, unspecified; E11.9 Type 2 diabetes mellitus without complications; R07.89 Other chest pain; Z88.2 Allergy status to sulfonamides; Z88.0 Allergy status to penicillin; Z79.01 Long term (current) use of anticoagulants; Z79.899 Other long term (current) drug therapy
CPT/HCPCS: 36415; 84484; 85610; 93005; 94760; 97110-GP; 97116-GP; 97530-GO; 97535-GO; A9270-GY

== ENCOUNTER 2019-12-09 12:13 | Inpatient (IN) | payer MEDICARE ==
--- NOTE | 2019-12-09 12:59 | EDM.PDOC ---
ED HPI GENERAL MEDICAL PROBLEM - General Chief Complaint: Respiratory Problem Stated Complaint: NAUS AND VOM Time Seen by Provider: 12/09/19 12:54 Source of Information: Reports: Patient History Limitations: Reports: No Limitations - History of Present Illness INITIAL COMMENTS - FREE TEXT/NARRATIVE: pt c/o SOB, weakness, poor appetite, constipation over the past week, no fever or chills or cough any other associated sx , pt has Hx of COPD/ CHF and she is O2 dependant , pt denies any other medical concerns. tells me she tried to go to bathroom 5 times yesterday but nothing came out, report Hx of constipation and use of stool softeners. Treatments CERTIFICATION TECHNICIAN: Reports: EKG, Oxygen L midsternal chest Pain Score (Numeric/FACES): 4 - Related Data Allergies Allergy/AdvReac Type Severity Reaction Status Date / Time Penicillins Allergy Rash Verified 12/09/19 12:39 Sulfa (Sulfonamide Allergy Rash Verified 12/09/19 12:39 Antibiotics) Home Meds: Home Meds Docusate Sodium 100 mg PO BID PRN 03/14/19 [History] Fluocinolone Acetonide 4 drop EARBOTH ASDIRECTED PRN 03/14/19 [History] Isosorbide Mononitrate [Imdur] 90 mg PO DAILY 03/14/19 [History] Metoprolol Succinate [Toprol XL 100mg] 100 mg PO BEDTIME 03/14/19 [History] Nitroglycerin 0.4 mg SL Q5M PRN 03/14/19 [History] Peppermint Oil Cap 1 cap PO BEDTIME 03/14/19 [History] Triamcinolone Acetonide [Triamcinolone Acetonide 0.1% Crm] 1 applic TOP BID PRN 03/14/19 [History] Ubidecarenone [Coenzyme Q10] 100 mg PO QPM 03/14/19 [History] Warfarin [Coumadin] 5 mg PO DAILY 03/14/19 [History] lisinopriL [Zestril] 10 mg PO DAILY 03/14/19 [History] nitrofurantoin macrocrystaL [Macrodantin] 50 mg PO MOWEFR@2100 03/14/19 [History] Acetaminophen [Tylenol Extra Strength] 1,000 mg PO BEDTIME 10/26/19 [History] Cholecalciferol (Vitamin D3) [Vitamin D3] 10 mcg PO DAILY 10/26/19 [History] Acetaminophen [Tylenol Extra Strength] 500 mg PO DAILY tablet 10/30/19 [Rx] Ascorbic Acid [Vitamin C] 1,000 mg PO BEDTIME tablet 10/30/19 [Rx] Isosorbide Mononitrate [Imdur] 30 mg PO DAILY@1600 tab.er 10/30/19 [Rx] Multivitamins [Tab-A-Zachary] 1 tab PO DAILY tablet 10/30/19 [Rx] bisacodyL [Dulcolax] 5 mg PO DAILY PRN tablet 10/30/19 [Rx] glipiZIDE [Glucotrol XL] 2.5 mg PO DAILY #30 tab.er.24 11/03/19 [Rx] Furosemide [Lasix] 40 mg PO BID 12/09/19 [History] Past Medical History HEENT History: Reports: Glaucoma, Macular Degeneration Cardiovascular History: Reports: Afib, Heart Failure, Hypertension, [place], Stents Respiratory History: Reports: Pneumonia, Recurrent Gastrointestinal History: Reports: Diverticulosis Genitourinary History: Reports: None TOWER ERECTOR History: Reports: Other TOWER ERECTOR History: Musculoskeletal History: Reports: Arthritis Neurological History: Reports: Concussion, CVA, Migraines, Parkinson's, Vertigo Other Neuro History: CVA with L sided weakness Psychiatric History: Reports: Anxiety, Depression Endocrine/Metabolic History: Reports: Diabetes, Type II, Obesity/BMI 30+ Hematologic History: Reports: Anticoagulation Therapy - Infectious Disease History Infectious Disease History: Reports: Shingles - Past Surgical History HEENT Surgical History: Reports: Cataract Surgery Other HEENT Surgeries/Procedures: bilat cataract Cardiovascular Surgical History: Reports: Coronary Artery Stent GI Surgical History: Reports: Colonoscopy, Other (See Below) Other GI Surgeries/Procedures: exp lap Female Surgical History: Reports: Hysterectomy Social & Family History - Family History Family Medical History: Noncontributory - Caffeine Use Caffeine Use: Reports: Coffee, Soda ED ROS GENERAL - Review of Systems Review Of Systems: See Below Constitutional: Reports: No Symptoms HEENT: Reports: No Symptoms Respiratory: Reports: Shortness of Breath Cardiovascular: Reports: No Symptoms GI/Abdominal: Reports: Constipation. Denies: Abdominal Pain, Nausea, Vomiting : Reports: No Symptoms Musculoskeletal: Reports: No Symptoms Skin: Reports: No Symptoms ED EXAM, GENERAL - Physical Exam Exam: See Below Exam Limited By: No Limitations General Appearance: Alert, No Apparent Distress Eye Exam: Bilateral Eye: Normal Inspection Nose: Normal Inspection Throat/Mouth: Normal Oropharynx Neck: Normal Inspection, Supple Respiratory/Chest: Crackles Cardiovascular: Irregularly Irregular GI/Abdominal: Normal Bowel Sounds, Soft, Non-Tender, Distended Back Exam: Normal Inspection, Full Range of Motion Extremities: Normal Inspection, Normal Range of Motion Neurological: Alert, Oriented, CN II-XII Intact Skin Exam: Warm, Dry Course - Vital Signs Text/Narrative:: pt had lg BM after fleet enema , her CXR shows mild edema and BNP is elevated, EKG shows afib with controlled rate, INR within therapeutic range. will admit pt for CHF exacerbation , she was given 80 mg lasix here and Dr Mejia was consulted and was in acceptance of pt care. Last Recorded V/S: Last Vital Signs Temp 36.7 C 12/09/19 12:13 Pulse 75 12/09/19 13:00 Resp 20 12/09/19 13:00 BP 133/79 12/09/19 13:00 Pulse Ox 100 12/09/19 13:00 - Orders/Labs/Meds Orders: Active Orders 24 hr Category Date Time Status Patient Status [ADT] Routine ADT 12/09/19 14:07 Ordered Antiembolic Devices [RC] .Routine Care 12/09/19 14:08 Ordered EKG Documentation Completion [RC] ASDIRECTED Care 12/09/19 13:16 Active Pulse Oximetry [RC] PRN Care 12/09/19 14:07 Ordered Up With Assistance [RC] ASDIRECTED Care 12/09/19 14:07 Ordered VTE/DVT Education [RC] Click to Edit Care 12/09/19 14:08 Ordered Vital Signs [RC] Q4H Care 12/09/19 14:07 Ordered Abdomen 2V AP Flat Upright [CR] Stat Exams 12/09/19 13:03 Taken Chest 1V Frontal [CR] Stat Exams 12/09/19 13:03 Taken INR,PT,PROTHROMBIN TIME [COAG] Routine Lab 12/09/19 14:15 Ordered Acetaminophen [Tylenol Extra Strength] Med 12/09/19 21:00 Ordered 1,000 mg PO BEDTIME Acetaminophen [Tylenol Extra Strength] Med 12/10/19 09:00 Ordered 500 mg PO DAILY Docusate Sodium [Colace] Med 12/09/19 14:13 Ordered 100 mg PO BID PRN Fluocinolone Acetonide [Fluocinolone Acetonide] Med 12/09/19 14:13 Ordered 4 drop EARBOTH ASDIRECTED PRN Isosorbide Mononitrate [Imdur] Med 12/09/19 16:00 Ordered 30 mg PO DAILY@1600 Isosorbide Mononitrate [Imdur] Med 12/10/19 09:00 Ordered 90 mg PO DAILY Metoprolol Succinate [Toprol XL] Med 12/09/19 21:00 Ordered 100 mg PO BEDTIME Multivitamins [Tab-A-Zachary] Med 12/10/19 09:00 Ordered 1 tab PO DAILY Nitroglycerin [Nitrostat] Med 12/09/19 14:13 Ordered 0.4 mg SL Q5M PRN Sodium Chloride 0.9% [Saline Flush] Med 12/09/19 13:15 Active 10 ml FLUSH ASDIRECTED PRN Warfarin [Coumadin] Med 12/10/19 09:00 Ordered 5 mg PO DAILY bisacodyL [Dulcolax] Med 12/09/19 14:13 Ordered 5 mg PO DAILY PRN glipiZIDE [Glucotrol XL] Med 12/10/19 09:00 Ordered 2.5 mg PO DAILY lisinopriL [Prinivil] Med 12/10/19 09:00 Ordered 10 mg PO DAILY DVT/VTE Prophylaxis Reflex [OM.PC] Per Unit Routine Oth 12/09/19 14:07 Ordered Peripheral IV Insertion Adult [OM.PC] Routine Oth 12/09/19 13:15 Ordered Resuscitation Status Routine Resus Stat 12/09/19 14:07 Ordered EKG 12 Lead [EK] Routine Ther 12/09/19 13:15 Ordered Medication Orders Acetaminophen (Tylenol Extra Strength) 500 mg PO DAILY [facility] Acetaminophen (Tylenol Extra Strength) 1,000 mg PO BEDTIME [facility] Bisacodyl (Dulcolax) 5 mg PO DAILY PRN PRN Reason: Constipation Docusate Sodium (Colace) 100 mg PO BID PRN PRN Reason: Constipation Glipizide (Glucotrol Xl) 2.5 mg PO DAILY [facility] Isosorbide Mononitrate (Imdur) 30 mg PO DAILY@1600 [facility] Isosorbide Mononitrate (Imdur) 90 mg PO DAILY [facility] Lisinopril (Prinivil) 10 mg PO DAILY [facility] Metoprolol Succinate (Toprol Xl) 100 mg PO BEDTIME [facility] Multivitamins/Minerals/Vitamin C (Tab-A-Zachary) 1 tab PO DAILY [facility] Nitroglycerin (Nitrostat) 0.4 mg SL Q5M PRN PRN Reason: Chest Pain Non-Formulary Medication (Fluocinolone Acetonide [Fluocinolone Acetonide]) 4 drop EARBOTH ASDIRECTED PRN PRN Reason: Dizziness Sodium Chloride (Saline Flush) 10 ml FLUSH ASDIRECTED PRN PRN Reason: Keep Vein Open Last Admin: 12/09/19 12:50 Dose: 10 ml Documented by: WILLIAM Warfarin Sodium (Coumadin) 5 mg PO DAILY [facility] Labs: Laboratory Tests 12/09/19 12/09/19 12/09/19 Range/Units 12:50 12:50 12:50 WBC 8.5 (4.5-12.0) X10-3/uL RBC 4.13 (3.23-5.20) x10(6)uL Hgb 12.8 (11.5-15.5) g/dL Hct 39.4 (30.0-51.3) % MCV 95.5 (80-96) fL MCH 31.1 (27.7-33.6) pg MCHC 32.6 (32.2-35.4) g/dL RDW 12.6 (11.5-15.5) % Plt Count 166 (125-369) X10(3)uL MPV 11.6 H (7.4-10.4) fL Neut % (Auto) 75.7 (46-82) % Lymph % (Auto) 14.1 (13-37) % Yates % (Auto) 7.0 (4-12) % Eos % (Auto) 0 L (1.0-5.0) % Baso % (Auto) 3 H (0-2) % Neut # (Auto) 6.4 (1.6-8.3) # Lymph # (Auto) 1.2 (0.6-5.0) # Yates # (Auto) 0.6 (0.0-1.3) # Eos # (Auto) 0.0 (0.0-0.8) # Baso # (Auto) 0.3 H (0.0-0.2) # PT (9.0-11.1) sec INR (1.00-1.24) APTT (24.4-33.2) SECONDS Sodium 131 L (135-145) mmol/L Potassium 5.0 D (3.5-5.3) mmol/L Chloride 93 L D (100-110) mmol/L Carbon Dioxide 30 (21-32) mmol/L BUN 28 H D (7-18) mg/dL Creatinine 1.6 H (0.55-1.02) mg/dL Est Cr Clr Drug Dosing 17.46 mL/min Estimated GFR (MDRD) 30 L (>60) BUN/Creatinine Ratio 17.5 (9-20) Glucose 319 H D (80-116) mg/dL Calcium 9.2 (8.6-10.2) mg/dL Total Bilirubin 1.0 (0.1-1.3) mg/dL AST 23 (5-25) IU/L ALT 28 D (12-36) U/L Alkaline Phosphatase 51 L (56-112) IU/L Troponin I 19.2 (4.0-60.3) pg/mL NT-Pro-B Natriuret Pep 64353 H* (<=450) pg/mL Total Protein 7.3 (6.0-8.0) g/dL Albumin 3.7 (3.2-4.6) g/dL Globulin 3.6 g/dL Albumin/Globulin Ratio 1.0 09/26/20 Range/Units 12:50 WBC (4.5-12.0) X10-3/uL RBC (3.23-5.20) x10(6)uL Hgb (11.5-15.5) g/dL Hct (30.0-51.3) % MCV (80-96) fL MCH (27.7-33.6) pg MCHC (32.2-35.4) g/dL RDW (11.5-15.5) % Plt Count (125-369) X10(3)uL MPV (7.4-10.4) fL Neut % (Auto) (46-82) % Lymph % (Auto) (13-37) % Yates % (Auto) (4-12) % Eos % (Auto) (1.0-5.0) % Baso % (Auto) (0-2) % Neut # (Auto) (1.6-8.3) # Lymph # (Auto) (0.6-5.0) # Yates # (Auto) (0.0-1.3) # Eos # (Auto) (0.0-0.8) # Baso # (Auto) (0.0-0.2) # PT 21.8 H (9.0-11.1) sec INR 2.12 H (1.00-1.24) APTT 32.8 (24.4-33.2) SECONDS Sodium (135-145) mmol/L Potassium (3.5-5.3) mmol/L Chloride (100-110) mmol/L Carbon Dioxide (21-32) mmol/L BUN (7-18) mg/dL Creatinine (0.55-1.02) mg/dL Est Cr Clr Drug Dosing mL/min Estimated GFR (MDRD) (>60) BUN/Creatinine Ratio (9-20) Glucose (80-116) mg/dL Calcium (8.6-10.2) mg/dL Total Bilirubin (0.1-1.3) mg/dL AST (5-25) IU/L ALT (12-36) U/L Alkaline Phosphatase (56-112) IU/L Troponin I (4.0-60.3) pg/mL NT-Pro-B Natriuret Pep (<=450) pg/mL Total Protein (6.0-8.0) g/dL Albumin (3.2-4.6) g/dL Globulin g/dL Albumin/Globulin Ratio Meds: Medications Generic Name Dose Route Start Last Admin Trade Name Freq PRN Reason Stop Dose Admin Acetaminophen 500 mg 12/10/19 09:00 Tylenol Extra Strength PO DAILY [facility] Acetaminophen 1,000 mg 12/09/19 21:00 Tylenol Extra Strength PO BEDTIME [facility] Bisacodyl 5 mg 12/09/19 14:13 Dulcolax PO DAILY PRN Constipation Docusate Sodium 100 mg 12/09/19 14:13 Colace PO BID PRN Constipation Glipizide 2.5 mg 12/10/19 09:00 Glucotrol Xl PO DAILY [facility] Isosorbide Mononitrate 30 mg 12/09/19 16:00 Imdur PO DAILY@1600 [facility] Isosorbide Mononitrate 90 mg 12/10/19 09:00 Imdur PO DAILY [facility] Lisinopril 10 mg 12/10/19 09:00 Prinivil PO DAILY [facility] Metoprolol Succinate 100 mg 12/09/19 21:00 Toprol Xl PO BEDTIME [facility] Multivitamins/Minerals/Vitamin C 1 tab 12/10/19 09:00 Tab-A-Zachary PO DAILY [facility] Nitroglycerin 0.4 mg 12/09/19 14:13 Nitrostat SL Q5M PRN Chest Pain Non-Formulary Medication 4 drop 12/09/19 14:13 Fluocinolone Acetonide [Fluocinolone Acetonide] EARBOTH ASDIRECTED PRN Dizziness Sodium Chloride 10 ml 12/09/19 13:15 12/09/19 12:50 Saline Flush FLUSH 10 ml ASDIRECTED PRN Administration Keep Vein Open Warfarin Sodium 5 mg 12/10/19 09:00 Coumadin PO DAILY [facility] Discontinued Medications Generic Name Dose Route Start Last Admin Trade Name Freq PRN Reason Stop Dose Admin Furosemide 80 mg 12/09/19 14:09 12/09/19 14:18 Lasix IVPUSH 12/09/19 14:10 80 mg NOW ONE Administration Departure - Departure Time of Disposition: 14:26 Disposition: Admitted As Inpatient 67 Clinical Impression: CHF exacerbation - Discharge Information Referrals: Jacky Ryder MD [Primary Care Provider] - Forms: ED Department Discharge Sepsis Event Note (ED) - Evaluation Sepsis Screening Result: No Definite Risk - Focused Exam Vital Signs: Vital Signs Temp Pulse Resp BP Pulse Ox 12/09/19 13:00 75 20 133/79 100 12/09/19 12:31 108 H 22 H 130/96 H 100 12/09/19 12:13 36.7 C 79 22 H 132/108 H 100 - My Orders Last 24 Hours: My Active Orders 12/09/19 13:03 Abdomen 2V AP Flat Upright [CR] Stat Chest 1V Frontal [CR] Stat 12/09/19 13:15 Sodium Chloride 0.9% [Saline Flush] 10 ml FLUSH ASDIRECTED PRN Peripheral IV Insertion Adult [OM.PC] Routine EKG 12 Lead [EK] Routine 12/09/19 13:16 EKG Documentation Completion [RC] ASDIRECTED 12/09/19 14:07 Patient Status [ADT] Routine Pulse Oximetry [RC] PRN Up With Assistance [RC] ASDIRECTED Vital Signs [RC] Q4H DVT/VTE Prophylaxis Reflex [OM.PC] Per Unit Routine Resuscitation Status Routine 12/09/19 14:08 Antiembolic Devices [RC] .Routine VTE/DVT Education [RC] Click to Edit 12/09/19 14:13 Docusate Sodium [Colace] 100 mg PO BID PRN Nitroglycerin [Nitrostat] 0.4 mg SL Q5M PRN bisacodyL [Dulcolax] 5 mg PO DAILY PRN 12/09/19 14:13 Fluocinolone Acetonide [Fluocinolone Acetonide] 4 drop EARBOTH ASDIRECTED PRN 12/09/19 14:15 INR,PT,PROTHROMBIN TIME [COAG] Routine 12/09/19 16:00 Isosorbide Mononitrate [Imdur] 30 mg PO DAILY@1600 12/09/19 21:00 Acetaminophen [Tylenol Extra Strength] 1,000 mg PO BEDTIME Metoprolol Succinate [Toprol XL] 100 mg PO BEDTIME 12/10/19 09:00 Acetaminophen [Tylenol Extra Strength] 500 mg PO DAILY Isosorbide Mononitrate [Imdur] 90 mg PO DAILY Multivitamins [Tab-A-Zachary] 1 tab PO DAILY Warfarin [Coumadin] 5 mg PO DAILY glipiZIDE [Glucotrol XL] 2.5 mg PO DAILY lisinopriL [Prinivil] 10 mg PO DAILY - Assessment/Plan Last 24 Hours: My Active Orders 12/09/19 13:03 Abdomen 2V AP Flat Upright [CR] Stat Chest 1V Frontal [CR] Stat 12/09/19 13:15 Sodium Chloride 0.9% [Saline Flush] 10 ml FLUSH ASDIRECTED PRN Peripheral IV Insertion Adult [OM.PC] Routine EKG 12 Lead [EK] Routine 12/09/19 13:16 EKG Documentation Completion [RC] ASDIRECTED 12/09/19 14:07 Patient Status [ADT] Routine Pulse Oximetry [RC] PRN Up With Assistance [RC] ASDIRECTED Vital Signs [RC] Q4H DVT/VTE Prophylaxis Reflex [OM.PC] Per Unit Routine Resuscitation Status Routine 12/09/19 14:08 Antiembolic Devices [RC] .Routine VTE/DVT Education [RC] Click to Edit 12/09/19 14:13 Docusate Sodium [Colace] 100 mg PO BID PRN Nitroglycerin [Nitrostat] 0.4 mg SL Q5M PRN bisacodyL [Dulcolax] 5 mg PO DAILY PRN 12/09/19 14:13 Fluocinolone Acetonide [Fluocinolone Acetonide] 4 drop EARBOTH ASDIRECTED PRN 12/09/19 14:15 INR,PT,PROTHROMBIN TIME [COAG] Routine 12/09/19 16:00 Isosorbide Mononitrate [Imdur] 30 mg PO DAILY@1600 12/09/19 21:00 Acetaminophen [Tylenol Extra Strength] 1,000 mg PO BEDTIME Metoprolol Succinate [Toprol XL] 100 mg PO BEDTIME 12/10/19 09:00 Acetaminophen [Tylenol Extra Strength] 500 mg PO DAILY Isosorbide Mononitrate [Imdur] 90 mg PO DAILY Multivitamins [Tab-A-Zachary] 1 tab PO DAILY Warfarin [Coumadin] 5 mg PO DAILY glipiZIDE [Glucotrol XL] 2.5 mg PO DAILY lisinopriL [Prinivil] 10 mg PO DAILY
[2019-12-09] MEDS ORDERED: Sodium Chloride 0.9% 10 ML Syringe FLUSH PRN (13:15)
[2019-12-09] MEDS ORDERED: Furosemide 40 MG/4 ML VIAL IVPUSH ONE (14:09)
[2019-12-09] MEDS ORDERED: FLUOCINOLONE ACETONIDE EARBOTH PRN (14:13)
[2019-12-09] MEDS ORDERED: Nitroglycerin 0.4 MG Tab.SL SL PRN (14:13)
[2019-12-09] MEDS ORDERED: Ondansetron 4 MG Tab.DIS PO PRN (15:48)
--- NOTE | 2019-12-09 15:57 | PCM.HP.2 ---
H&P History of Present Illness - General Date of Service: 12/09/19 Admit Problem/Dx: Admission Diagnosis/Problem Admission Diagnosis/Problem CHF, Congestive heart failure Source of Information: Patient, Old Records, Other (Emergency room note) History Limitations: Reports: No Limitations - History of Present Illness Initial Comments - Free Text/Narative: This is an 89-year-old female patient lives with herself with known history of CHF, angina, COPD, atrial fibrillation has 5 days of feeling weak and short of breath. She's been sitting up in her bed in a chair. She uses 2 pillows to sleep. She's gained about 9 pounds she states her home scale. She denies leg swelling. She has chronic rhinitis but no coughing, wheezing, fevers, chills. She's not been able to move her bowels for 5 days and had some abdominal pain and distention. She denies dysuria, pyuria, hematuria. She has had some chest pain which is chronic condition for. She says isosorbide is help that. It's better at this point when I'm talking to her. L midsternal chest Pain Score (Numeric/FACES): 4 ACROSS ABDOMEN Pain Score (Numeric/FACES): 6 - Related Data Allergies/Adverse Reactions: Allergies Allergy/AdvReac Type Severity Reaction Status Date / Time Penicillins Allergy Rash Verified 12/09/19 12:39 Sulfa (Sulfonamide Allergy Rash Verified 12/09/19 12:39 Antibiotics) Home Medications: Home Meds Docusate Sodium 100 mg PO BID PRN 03/14/19 [History] Fluocinolone Acetonide 4 drop EARBOTH ASDIRECTED PRN 03/14/19 [History] Isosorbide Mononitrate [Imdur] 90 mg PO DAILY 03/14/19 [History] Metoprolol Succinate [Toprol XL 100mg] 100 mg PO BEDTIME 03/14/19 [History] Nitroglycerin 0.4 mg SL Q5M PRN 03/14/19 [History] Peppermint Oil Cap 1 cap PO BEDTIME 03/14/19 [History] Triamcinolone Acetonide [Triamcinolone Acetonide 0.1% Crm] 1 applic TOP BID PRN 03/14/19 [History] Ubidecarenone [Coenzyme Q10] 100 mg PO QPM 03/14/19 [History] Warfarin [Coumadin] 5 mg PO SUTUWETHSA 03/14/19 [History] lisinopriL [Zestril] 10 mg PO DAILY 03/14/19 [History] nitrofurantoin macrocrystaL [Macrodantin] 50 mg PO MOWEFR@2100 03/14/19 [History] Acetaminophen [Tylenol Extra Strength] 1,000 mg PO BEDTIME 10/26/19 [History] Cholecalciferol (Vitamin D3) [Vitamin D3] 10 mcg PO DAILY 10/26/19 [History] Acetaminophen [Tylenol Extra Strength] 500 mg PO DAILY tablet 10/30/19 [Rx] Ascorbic Acid [Vitamin C] 1,000 mg PO BEDTIME tablet 10/30/19 [Rx] Isosorbide Mononitrate [Imdur] 30 mg PO DAILY@1600 tab.er 10/30/19 [Rx] Multivitamins [Tab-A-Zachary] 1 tab PO DAILY tablet 10/30/19 [Rx] bisacodyL [Dulcolax] 5 mg PO DAILY PRN tablet 10/30/19 [Rx] glipiZIDE [Glucotrol XL] 2.5 mg PO DAILY #30 tab.er.24 11/03/19 [Rx] Furosemide [Lasix] 40 mg PO BID 12/09/19 [History] Warfarin [Coumadin] 2.5 mg PO MOFR 12/09/19 [History] Past Medical History HEENT History: Reports: Glaucoma, Macular Degeneration Cardiovascular History: Reports: Afib, Heart Failure, Hypertension, [place], Stents Respiratory History: Reports: Pneumonia, Recurrent Other Respiratory History: Is currently on O2 @ 3L/NC @ home. 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 Psychiatric History: Reports: Anxiety, Depression Endocrine/Metabolic History: Reports: Diabetes, Type II, Obesity/BMI 30+ Hematologic History: Reports: Anticoagulation Therapy - Infectious Disease History Infectious Disease History: Reports: Shingles - Past Surgical History HEENT Surgical History: Reports: Cataract Surgery Other HEENT Surgeries/Procedures: bilat cataract Cardiovascular Surgical History: Reports: Coronary Artery Stent GI Surgical History: Reports: Colonoscopy, Other (See Below) Other GI Surgeries/Procedures: exp lap Female Surgical History: Reports: Hysterectomy Social & Family History - Family History Family Medical History: Noncontributory - Tobacco Use Smoking Status *Q: Never Smoker - Caffeine Use Caffeine Use: Reports: Coffee, Soda - Recreational Drug Use Recreational Drug Use: No H&P Review of Systems - Review of Systems: Review Of Systems: See Below General: Reports: Weakness HEENT: Reports: No Symptoms Pulmonary: Reports: Shortness of Breath. Denies: Wheezing, Pleuritic Chest Pain, Cough, Sputum, Hemoptysis Cardiovascular: Reports: Chest Pain. Denies: Edema Gastrointestinal: Reports: Constipation. Denies: Abdominal Pain, Black Stool, Bloody Stool, Diarrhea, Hematochezia, Melena Genitourinary: Reports: No Symptoms Musculoskeletal: Reports: No Symptoms Skin: Reports: No Symptoms Neurological: Reports: Tremors Hematologic/Lymphatic: Reports: No Symptoms Immunologic: Reports: No Symptoms Exam - Exam Exam: See Below - Vital Signs Vital Signs: Last Vital Signs Temp 96.9 F 12/09/19 14:40 Pulse 95 12/09/19 14:40 Resp 26 H 12/09/19 14:40 BP 105/45 L 12/09/19 14:40 Pulse Ox 98 12/09/19 14:40 Weight: 170 lb - Exam General: Alert, Oriented, Cooperative HEENT: Hearing Intact, Mucosa Moist & [place], Posterior Pharynx Clear, TMs Clear Neck: Supple, Trachea Midline Lungs: Normal Respiratory Effort, Crackles (Bilateral bases). No: Decreased Breath Sounds Cardiovascular: Other (Due to her tremor I'm not able to hear heart today.) GI/Abdominal Exam: Normal Bowel Sounds, Soft, Non-Tender, No Mass, Distended (Mild) Back Exam: Normal Inspection, Full Range of Motion Extremities: Normal Inspection, Non-Tender, No Pedal Edema Skin: Warm, Dry, Intact Neurological: Normal Speech, Other (Tremors) Neuro Extensive - Mental Status: Alert, Oriented x3, Normal Mood/Affect, Normal Cognition, Memory Intact Psychiatric: Alert, Normal Affect, Normal Mood - Patient Data Lab Results Last 24 hrs: Laboratory Results - last 24 hr 09/26/20 09/26/20 09/26/20 Range/Units 12:50 12:50 12:50 WBC 8.5 (4.5-12.0) X10-3/uL RBC 4.13 (3.23-5.20) x10(6)uL Hgb 12.8 (11.5-15.5) g/dL Hct 39.4 (30.0-51.3) % MCV 95.5 (80-96) fL MCH 31.1 (27.7-33.6) pg MCHC 32.6 (32.2-35.4) g/dL RDW 12.6 (11.5-15.5) % Plt Count 166 (125-369) X10(3)uL MPV 11.6 H (7.4-10.4) fL Neut % (Auto) 75.7 (46-82) % Lymph % (Auto) 14.1 (13-37) % [place] % (Auto) 7.0 (4-12) % Eos % (Auto) 0 L (1.0-5.0) % Baso % (Auto) 3 H (0-2) % Neut # (Auto) 6.4 (1.6-8.3) # Lymph # (Auto) 1.2 (0.6-5.0) # [place] # (Auto) 0.6 (0.0-1.3) # Eos # (Auto) 0.0 (0.0-0.8) # Baso # (Auto) 0.3 H (0.0-0.2) # PT (9.0-11.1) sec INR (1.00-1.24) APTT (24.4-33.2) SECONDS Sodium 131 L (135-145) mmol/L Potassium 5.0 D (3.5-5.3) mmol/L Chloride 93 L D (100-110) mmol/L Carbon Dioxide 30 (21-32) mmol/L BUN 28 H D (7-18) mg/dL Creatinine 1.6 H (0.55-1.02) mg/dL Est Cr Clr Drug Dosing 17.46 mL/min Estimated GFR (MDRD) 30 L (>60) BUN/Creatinine Ratio 17.5 (9-20) Glucose 319 H D (80-116) mg/dL Calcium 9.2 (8.6-10.2) mg/dL Total Bilirubin 1.0 (0.1-1.3) mg/dL AST 23 (5-25) IU/L ALT 28 D (12-36) U/L Alkaline Phosphatase 51 L (56-112) IU/L Troponin I 19.2 (4.0-60.3) pg/mL NT-Pro-B Natriuret Pep 47919 H* (<=450) pg/mL Total Protein 7.3 (6.0-8.0) g/dL Albumin 3.7 (3.2-4.6) g/dL Globulin 3.6 g/dL Albumin/Globulin Ratio 1.0 09/26/20 Range/Units 12:50 WBC (4.5-12.0) X10-3/uL RBC (3.23-5.20) x10(6)uL Hgb (11.5-15.5) g/dL Hct (30.0-51.3) % MCV (80-96) fL MCH (27.7-33.6) pg MCHC (32.2-35.4) g/dL RDW (11.5-15.5) % Plt Count (125-369) X10(3)uL MPV (7.4-10.4) fL Neut % (Auto) (46-82) % Lymph % (Auto) (13-37) % [place] % (Auto) (4-12) % Eos % (Auto) (1.0-5.0) % Baso % (Auto) (0-2) % Neut # (Auto) (1.6-8.3) # Lymph # (Auto) (0.6-5.0) # [place] # (Auto) (0.0-1.3) # Eos # (Auto) (0.0-0.8) # Baso # (Auto) (0.0-0.2) # PT 21.8 H (9.0-11.1) sec INR 2.12 H (1.00-1.24) APTT 32.8 (24.4-33.2) SECONDS Sodium (135-145) mmol/L Potassium (3.5-5.3) mmol/L Chloride (100-110) mmol/L Carbon Dioxide (21-32) mmol/L BUN (7-18) mg/dL Creatinine (0.55-1.02) mg/dL Est Cr Clr Drug Dosing mL/min Estimated GFR (MDRD) (>60) BUN/Creatinine Ratio (9-20) Glucose (80-116) mg/dL Calcium (8.6-10.2) mg/dL Total Bilirubin (0.1-1.3) mg/dL AST (5-25) IU/L ALT (12-36) U/L Alkaline Phosphatase (56-112) IU/L Troponin I (4.0-60.3) pg/mL NT-Pro-B Natriuret Pep (<=450) pg/mL Total Protein (6.0-8.0) g/dL Albumin (3.2-4.6) g/dL Globulin g/dL Albumin/Globulin Ratio Result Diagrams: 12/09/19 12:50 12/09/19 12:50 Sepsis Event Note - Evaluation Sepsis Screening Result: No Definite Risk - Focused Exam Vital Signs: Vital Signs Temp Pulse Resp BP Pulse Ox Pulse Ox 12/09/19 14:40 96.9 F 95 26 H 105/45 L 98 12/09/19 13:00 75 20 133/79 100 12/09/19 12:31 108 H 22 H 130/96 H 100 12/09/19 12:13 98.0 F 79 22 H 132/108 H 100 100 - Problem List (1) Palliative care status SNOMED Code(s): 989986993 ICD Code: Z51.5 - ENCOUNTER FOR PALLIATIVE CARE Status: Acute Current Visit: Yes (2) CHF exacerbation SNOMED Code(s): 697798222, 18285031607669 ICD Code: I50.9 - HEART FAILURE, UNSPECIFIED Status: Acute Current Visit: Yes (3) Chest wall muscle strain SNOMED Code(s): 477978246 ICD Code: S29.011A - STRAIN OF MUSCLE AND TENDON OF FRONT WALL OF THORAX, INIT Status: Acute Current Visit: No (4) Elevated brain natriuretic peptide (BNP) level SNOMED Code(s): 008879425, 615227756 ICD Code: R79.89 - OTHER SPECIFIED ABNORMAL FINDINGS OF BLOOD CHEMISTRY Status: Acute Current Visit: No (5) Ischemic cardiomyopathy SNOMED Code(s): 526749652 ICD Code: I25.5 - ISCHEMIC CARDIOMYOPATHY Status: Acute Current Visit: No (6) Parkinson disease SNOMED Code(s): 64916469 ICD Code: G20 - PARKINSON'S DISEASE Status: Acute Current Visit: No (7) Weakness SNOMED Code(s): 78297398 ICD Code: R53.1 - WEAKNESS Status: Acute Current Visit: No (8) Afib SNOMED Code(s): 13657437 ICD Code: I48.91 - UNSPECIFIED ATRIAL FIBRILLATION Status: Chronic Current Visit: No Qualifiers: Atrial fibrillation type: longstanding persistent Qualified Code(s): I48.11 - Longstanding persistent atrial fibrillation (9) Diabetes mellitus type 2, diet-controlled SNOMED Code(s): 591927537655136, 724912049201088 ICD Code: E11.9 - TYPE 2 DIABETES MELLITUS WITHOUT COMPLICATIONS Status: Chronic Current Visit: No Problem List Initiated/Reviewed/Updated: Yes Orders Last 24hrs: Active Orders 24 hr Category Date Time Status Patient Status [ADT] Routine ADT 12/09/19 14:07 Active Antiembolic Devices [RC] .Routine Care 12/09/19 14:08 Active EKG Documentation Completion [RC] ASDIRECTED Care 12/09/19 13:16 Active Intake and Output Strict [RC] ASDIRECTED Care 12/09/19 15:49 Active Pulse Oximetry [RC] PRN Care 12/09/19 14:07 Active Telemetry Monitoring [Cardiac Monitoring] [RC] .As Care 12/09/19 14:27 Active Directed Up With Assistance [RC] ASDIRECTED Care 12/09/19 14:07 Active VTE/DVT Education [RC] Click to Edit Care 12/09/19 14:08 Active Vital Signs [RC] Q4H Care 12/09/19 14:07 Active Consistent Carbohydrate Diet [DIET] Diet 12/09/19 Dinner Active Abdomen 2V AP Flat Upright [CR] Stat Exams 12/09/19 13:03 Taken Chest 1V Frontal [CR] Stat Exams 12/09/19 13:03 Taken INR,PT,PROTHROMBIN TIME [COAG] DAILY Lab 12/10/19 06:00 Ordered INR,PT,PROTHROMBIN TIME [COAG] DAILY Lab 12/11/19 06:00 Ordered INR,PT,PROTHROMBIN TIME [COAG] DAILY Lab 12/12/19 06:00 Ordered INR,PT,PROTHROMBIN TIME [COAG] DAILY Lab 12/13/19 06:00 Ordered INR,PT,PROTHROMBIN TIME [COAG] DAILY Lab 12/14/19 06:00 Ordered INR,PT,PROTHROMBIN TIME [COAG] Routine Lab 12/09/19 14:15 Ordered Acetaminophen [Tylenol Extra Strength] Med 12/09/19 21:00 Active 1,000 mg PO BEDTIME Acetaminophen [Tylenol Extra Strength] Med 12/10/19 09:00 Active 500 mg PO DAILY Acetaminophen/HYDROcodone [[place] 325-5 MG] Med 12/09/19 15:48 Active 1 tab PO Q6H PRN Docusate Sodium [Colace] Med 12/09/19 14:13 Active 100 mg PO BID PRN Fluocinolone Acetonide [Fluocinolone Acetonide] Med 12/09/19 14:13 Active 4 drop EARBOTH ASDIRECTED PRN Isosorbide Mononitrate [Imdur] Med 12/09/19 16:00 Active 30 mg PO DAILY@1600 Isosorbide Mononitrate [Imdur] Med 12/10/19 09:00 Active 90 mg PO DAILY Metoprolol Succinate [Toprol XL] Med 12/09/19 21:00 Active 100 mg PO BEDTIME Multivitamins [Tab-A-Zachary] Med 12/10/19 09:00 Active 1 tab PO DAILY Nitroglycerin [Nitrostat] Med 12/09/19 14:13 Active 0.4 mg SL Q5M PRN Ondansetron [Zofran ODT] Med 12/09/19 15:48 Active 4 mg PO Q6H PRN Sodium Chloride 0.9% [Saline Flush] Med 12/09/19 13:15 Active 10 ml FLUSH ASDIRECTED PRN Warfarin [Coumadin] Med 12/10/19 09:00 Active 5 mg PO DAILY bisacodyL [Dulcolax] Med 12/09/19 14:13 Active 5 mg PO DAILY PRN glipiZIDE [Glucotrol XL] Med 12/10/19 09:00 Active 2.5 mg PO DAILY lisinopriL [Prinivil] Med 12/10/19 09:00 Active 10 mg PO DAILY nitrofurantoin macrocrystaL [Macrodantin] Med 12/11/19 21:00 Active 50 mg PO MOWEFR@2100 DVT/VTE Prophylaxis Reflex [OM.PC] Per Unit Routine Oth 12/09/19 14:07 Ordered Peripheral IV Insertion Adult [OM.PC] Routine Oth 12/09/19 13:15 Ordered Resuscitation Status Routine Resus Stat 12/09/19 14:07 Ordered EKG 12 Lead [EK] Routine Ther 12/09/19 13:15 Ordered Medication Orders Acetaminophen (Tylenol Extra Strength) 500 mg PO DAILY IFTIKHAR Acetaminophen (Tylenol Extra Strength) 1,000 mg PO BEDTIME IFTIKHAR Hydrocodone Bitart/Acetaminophen ([place] 325-5 Mg) 1 tab PO Q6H PRN PRN Reason: Pain Bisacodyl (Dulcolax) 5 mg PO DAILY PRN PRN Reason: Constipation Docusate Sodium (Colace) 100 mg PO BID PRN PRN Reason: Constipation Glipizide (Glucotrol Xl) 2.5 mg PO DAILY [facility] Isosorbide Mononitrate (Imdur) 30 mg PO DAILY@1600 [facility] Isosorbide Mononitrate (Imdur) 90 mg PO DAILY [facility] Lisinopril (Prinivil) 10 mg PO DAILY [facility] Metoprolol Succinate (Toprol Xl) 100 mg PO BEDTIME [facility] Multivitamins/Minerals/Vitamin C (Tab-A-Zachary) 1 tab PO DAILY [facility] Nitrofurantoin Macrocrystals (Macrodantin) 50 mg PO MOWEFR@2100 [facility] Nitroglycerin (Nitrostat) 0.4 mg SL Q5M PRN PRN Reason: Chest Pain Non-Formulary Medication (Fluocinolone Acetonide [Fluocinolone Acetonide]) 4 drop EARBOTH ASDIRECTED PRN PRN Reason: Dizziness Ondansetron HCl (Zofran Odt) 4 mg PO Q6H PRN PRN Reason: Nausea/Vomiting Sodium Chloride (Saline Flush) 10 ml FLUSH ASDIRECTED PRN PRN Reason: Keep Vein Open Last Admin: 12/09/19 12:50 Dose: 10 ml Documented by: WILLIAM Warfarin Sodium (Coumadin) 5 mg PO DAILY [facility] Assessment/Plan Comment:: 1. Admit to inpatient 2. DNR/DNI 3. Patient is on Coumadin continue to follow INR daily. This should do for her clot prophylaxis. 4. Diabetic diet 5. Up with assist 6. Lasix 80 mg IV today and hold her by mouth Lasix. 7. Reviewed her medications and restart most of them. 8. I will have the chest x-ray and abdominal x-ray read. 9. Patient had large BM before she came over the floor which should help her abdominal pain because of his no pain when I palpated. 10. 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
[2019-12-09] MEDS: Isosorbide Mononitrate 30 MG Tab.ER PO SCH (16:19)
[2019-12-09] MEDS: Acetaminophen/HYDROcodone 325-5 MG Tab PO PRN (16:19)
[2019-12-09] MEDS: Metoprolol Succinate 100 MG Tab.ER PO SCH (20:05)
[2019-12-09] MEDS: Acetaminophen 500 MG Tab PO SCH (20:06)
[2019-12-10] MEDS ORDERED: Metolazone 2.5 MG Tab PO ONE (08:03)
--- NOTE | 2019-12-10 08:06 | PCM.PN ---
- General Info Date of Service: 12/10/19 Admission Dx/Problem (Free Text): Patient states she feels better. She states she's not sweating when she gets up in her breathing shortness of breath is improved. She still has chest pain but that's chronic. - Patient Data Vitals - Most Recent: Last Vital Signs Temp 97.7 F 12/10/19 04:00 Pulse 67 12/10/19 04:00 Resp 20 12/10/19 04:00 BP 133/67 12/10/19 04:00 Pulse Ox 98 12/10/19 04:00 Weight - Most Recent: 180 lb 8 oz I&O - Last 24 Hours: Intake & Output 12/09/19 12/10/19 12/10/19 22:59 06:59 14:59 Intake Total 840 400 Output Total 500 400 Balance 340 0 Lab Results Last 24 Hours: Laboratory Results - last 24 hr 12/09/19 12/09/19 12/09/19 Range/Units 12:50 12:50 12:50 WBC 8.5 (4.5-12.0) X10-3/uL RBC 4.13 (3.23-5.20) x10(6)uL Hgb 12.8 (11.5-15.5) g/dL Hct 39.4 (30.0-51.3) % MCV 95.5 (80-96) fL MCH 31.1 (27.7-33.6) pg MCHC 32.6 (32.2-35.4) g/dL RDW 12.6 (11.5-15.5) % Plt Count 166 (125-369) X10(3)uL MPV 11.6 H (7.4-10.4) fL Neut % (Auto) 75.7 (46-82) % Lymph % (Auto) 14.1 (13-37) % Weak[place] % (Auto) 7.0 (4-12) % Eos % (Auto) 0 L (1.0-5.0) % Baso % (Auto) 3 H (0-2) % Neut # (Auto) 6.4 (1.6-8.3) # Lymph # (Auto) 1.2 (0.6-5.0) # Weakley # (Auto) 0.6 (0.0-1.3) # Eos # (Auto) 0.0 (0.0-0.8) # Baso # (Auto) 0.3 H (0.0-0.2) # PT (9.0-11.1) sec INR (1.00-1.24) APTT (24.4-33.2) SECONDS Sodium 131 L (135-145) mmol/L Potassium 5.0 D (3.5-5.3) mmol/L Chloride 93 L D (100-110) mmol/L Carbon Dioxide 30 (21-32) mmol/L BUN 28 H D (7-18) mg/dL Creatinine 1.6 H (0.55-1.02) mg/dL Est Cr Clr Drug Dosing 17.46 mL/min Estimated GFR (MDRD) 30 L (>60) BUN/Creatinine Ratio 17.5 (9-20) Glucose 319 H D (80-116) mg/dL POC Glucose (74-100) mg/dL Calcium 9.2 (8.6-10.2) mg/dL Total Bilirubin 1.0 (0.1-1.3) mg/dL AST 23 (5-25) IU/L ALT 28 D (12-36) U/L Alkaline Phosphatase 51 L (56-112) IU/L Troponin I 19.2 (4.0-60.3) pg/mL NT-Pro-B Natriuret Pep 82530 H* (<=450) pg/mL Total Protein 7.3 (6.0-8.0) g/dL Albumin 3.7 (3.2-4.6) g/dL Globulin 3.6 g/dL Albumin/Globulin Ratio 1.0 12/09/19 12/09/19 12/10/19 Range/Units 12:50 17:26 06:45 WBC (4.5-12.0) X10-3/uL RBC (3.23-5.20) x10(6)uL Hgb (11.5-15.5) g/dL Hct (30.0-51.3) % MCV (80-96) fL MCH (27.7-33.6) pg MCHC (32.2-35.4) g/dL RDW (11.5-15.5) % Plt Count (125-369) X10(3)uL MPV (7.4-10.4) fL Neut % (Auto) (46-82) % Lymph % (Auto) (13-37) % Weakley % (Auto) (4-12) % Eos % (Auto) (1.0-5.0) % Baso % (Auto) (0-2) % Neut # (Auto) (1.6-8.3) # Lymph # (Auto) (0.6-5.0) # Weakley # (Auto) (0.0-1.3) # Eos # (Auto) (0.0-0.8) # Baso # (Auto) (0.0-0.2) # PT 21.8 H 17.8 H (9.0-11.1) sec INR 2.12 H 1.71 H (1.00-1.24) APTT 32.8 (24.4-33.2) SECONDS Sodium (135-145) mmol/L Potassium (3.5-5.3) mmol/L Chloride (100-110) mmol/L Carbon Dioxide (21-32) mmol/L BUN (7-18) mg/dL Creatinine (0.55-1.02) mg/dL Est Cr Clr Drug Dosing mL/min Estimated GFR (MDRD) (>60) BUN/Creatinine Ratio (9-20) Glucose (80-116) mg/dL POC Glucose 321 H (74-100) mg/dL Calcium (8.6-10.2) mg/dL Total Bilirubin (0.1-1.3) mg/dL AST (5-25) IU/L ALT (12-36) U/L Alkaline Phosphatase (56-112) IU/L Troponin I (4.0-60.3) pg/mL NT-Pro-B Natriuret Pep (<=450) pg/mL Total Protein (6.0-8.0) g/dL Albumin (3.2-4.6) g/dL Globulin g/dL Albumin/Globulin Ratio 12/10/19 12/10/19 Range/Units 06:45 06:45 WBC (4.5-12.0) X10-3/uL RBC (3.23-5.20) x10(6)uL Hgb (11.5-15.5) g/dL Hct (30.0-51.3) % MCV (80-96) fL MCH (27.7-33.6) pg MCHC (32.2-35.4) g/dL RDW (11.5-15.5) % Plt Count (125-369) X10(3)uL MPV (7.4-10.4) fL Neut % (Auto) (46-82) % Lymph % (Auto) (13-37) % Weak[place] % (Auto) (4-12) % Eos % (Auto) (1.0-5.0) % Baso % (Auto) (0-2) % Neut # (Auto) (1.6-8.3) # Lymph # (Auto) (0.6-5.0) # Weakley # (Auto) (0.0-1.3) # Eos # (Auto) (0.0-0.8) # Baso # (Auto) (0.0-0.2) # PT (9.0-11.1) sec INR (1.00-1.24) APTT (24.4-33.2) SECONDS Sodium 131 L (135-145) mmol/L Potassium 4.1 (3.5-5.3) mmol/L Chloride 93 L (100-110) mmol/L Carbon Dioxide 33 H (21-32) mmol/L BUN 30 H (7-18) mg/dL Creatinine 1.6 H (0.55-1.02) mg/dL Est Cr Clr Drug Dosing 17.46 mL/min Estimated GFR (MDRD) 30 L (>60) BUN/Creatinine Ratio 18.8 (9-20) Glucose 240 H (80-116) mg/dL POC Glucose (74-100) mg/dL Calcium 8.8 (8.6-10.2) mg/dL Total Bilirubin (0.1-1.3) mg/dL AST (5-25) IU/L ALT (12-36) U/L Alkaline Phosphatase (56-112) IU/L Troponin I 23.4 (4.0-60.3) pg/mL NT-Pro-B Natriuret Pep (<=450) pg/mL Total Protein (6.0-8.0) g/dL Albumin (3.2-4.6) g/dL Globulin g/dL Albumin/Globulin Ratio Med Orders - Current: Current Medications Acetaminophen (Tylenol Extra Strength) 500 mg PO DAILY [facility] Acetaminophen (Tylenol Extra Strength) 1,000 mg PO BEDTIME [facility] Last Admin: 12/09/19 20:06 Dose: 1,000 mg Documented by: Hydrocodone Bitart/Acetaminophen (Counselor 325-5 Mg) 1 tab PO Q6H PRN PRN Reason: Pain Last Admin: 12/09/19 16:19 Dose: 1 tab Documented by: Bisacodyl (Dulcolax) 5 mg PO DAILY PRN PRN Reason: Constipation Docusate Sodium (Colace) 100 mg PO BID PRN PRN Reason: Constipation Furosemide (Lasix) 20 mg PO BID [facility] Glipizide (Glucotrol Xl) 2.5 mg PO DAILY [facility] Isosorbide Mononitrate (Imdur) 30 mg PO DAILY@1600 [facility] Last Admin: 12/09/19 16:19 Dose: 30 mg Documented by: Isosorbide Mononitrate (Imdur) 90 mg PO DAILY [facility] Lisinopril (Prinivil) 10 mg PO DAILY [facility] Metoprolol Succinate (Toprol Xl) 100 mg PO BEDTIME [facility] Last Admin: 12/09/19 20:05 Dose: 100 mg Documented by: Multivitamins/Minerals/Vitamin C (Tab-A-Zachary) 1 tab PO DAILY [facility] Nitrofurantoin Macrocrystals (Macrodantin) 50 mg PO MOWEFR@2100 [facility] Nitroglycerin (Nitrostat) 0.4 mg SL Q5M PRN PRN Reason: Chest Pain Non-Formulary Medication (Fluocinolone Acetonide [Fluocinolone Acetonide]) 4 drop EARBOTH ASDIRECTED PRN PRN Reason: Dizziness Ondansetron HCl (Zofran Odt) 4 mg PO Q6H PRN PRN Reason: Nausea/Vomiting Last Admin: 12/09/19 16:19 Dose: 4 mg Documented by: Sodium Chloride (Saline Flush) 10 ml FLUSH ASDIRECTED PRN PRN Reason: Keep Vein Open Last Admin: 12/09/19 12:50 Dose: 10 ml Documented by: Warfarin Sodium (Coumadin) 5 mg PO DAILY [facility] Discontinued Medications Furosemide (Lasix) 80 mg IVPUSH NOW ONE Stop: 09/26/20 14:10 Last Admin: 12/09/19 14:18 Dose: 80 mg Documented by: - Exam Neck: Supple Lungs: Normal Respiratory Effort, Crackles (Improved) Cardiovascular: Regular Rate, Irregular Rhythm, Murmurs Extremities: No Pedal Edema Sepsis Event Note - Evaluation Sepsis Screening Result: No Definite Risk - Focused Exam Vital Signs: Vital Signs Temp Pulse Pulse Resp BP BP Pulse Ox 12/10/19 04:00 97.7 F 67 20 133/67 98 12/09/19 23:28 97.1 F 96 20 124/85 98 12/09/19 20:05 98 123/83 - Problem List & Annotations (1) Palliative care status SNOMED Code(s): 045150577 Code(s): Z51.5 - ENCOUNTER FOR PALLIATIVE CARE Status: Acute Current Visit: Yes (2) CHF exacerbation SNOMED Code(s): 160729544, 61255652444007 Code(s): I50.9 - HEART FAILURE, UNSPECIFIED Status: Acute Current Visit: Yes (3) Chest wall muscle strain SNOMED Code(s): 766152868 Code(s): S29.011A - STRAIN OF MUSCLE AND TENDON OF FRONT WALL OF THORAX, INIT Status: Acute Current Visit: No (4) Elevated brain natriuretic peptide (BNP) level SNOMED Code(s): 088079947, 069390174 Code(s): R79.89 - OTHER SPECIFIED ABNORMAL FINDINGS OF BLOOD CHEMISTRY Status: Acute Current Visit: No (5) Ischemic cardiomyopathy SNOMED Code(s): 602780357 Code(s): I25.5 - ISCHEMIC CARDIOMYOPATHY Status: Acute Current Visit: No (6) Parkinson disease SNOMED Code(s): 99351557 Code(s): G20 - PARKINSON'S DISEASE Status: Acute Current Visit: No (7) Weakness SNOMED Code(s): 48123597 Code(s): R53.1 - WEAKNESS Status: Acute Current Visit: No (8) Afib SNOMED Code(s): 84590810 Code(s): I48.91 - UNSPECIFIED ATRIAL FIBRILLATION Status: Chronic Current Visit: No Qualifiers: Atrial fibrillation type: longstanding persistent Qualified Code(s): I48.11 - Longstanding persistent atrial fibrillation (9) Diabetes mellitus type 2, diet-controlled SNOMED Code(s): 135310518400653, 085222465006724 Code(s): E11.9 - TYPE 2 DIABETES MELLITUS WITHOUT COMPLICATIONS Status: Chronic Current Visit: No (10) Hyponatremia SNOMED Code(s): 24641308 Code(s): E87.1 - HYPO-OSMOLALITY AND HYPONATREMIA Status: Acute Current Visit: Yes - Problem List Review Problem List Initiated/Reviewed/Updated: Yes - My Orders Last 24 Hours: My Active Orders 12/09/19 15:48 Acetaminophen/HYDROcodone [Counselor 325-5 MG] 1 tab PO Q6H PRN Ondansetron [Zofran ODT] 4 mg PO Q6H PRN 12/09/19 15:49 Intake and Output Strict [RC] 06,14,22 12/09/19 15:58 Accu Check [Blood Glucose Check, Bedside] [RC] 06,17 Consult to Case Management/Learning Consultant [CONS] Routine Consult to Occupational Therapy [OT Evaluation and Treatment] [CONS] Routine Consult to Physical Therapy [PT Evaluation and Treatment] [CONS] Routine 12/10/19 05:11 EKG 12 Lead [EK] AM 12/10/19 08:03 metOLazone [Zaroxolyn] 2.5 mg PO ONETIME ONE 12/10/19 09:00 Furosemide [Lasix] 20 mg PO BID 12/11/19 06:00 INR,PT,PROTHROMBIN TIME [COAG] DAILY 12/11/19 21:00 nitrofurantoin macrocrystaL [Macrodantin] 50 mg PO MOWEFR@2100 12/12/19 06:00 INR,PT,PROTHROMBIN TIME [COAG] DAILY 12/13/19 06:00 INR,PT,PROTHROMBIN TIME [COAG] DAILY 12/14/19 06:00 INR,PT,PROTHROMBIN TIME [COAG] DAILY - Plan Plan:: 1. DC telemetry 2. Lasix 60 mg in the morning and 20 mg in the afternoon. 3. Metolazone 2.5 mg before the morning dose of Lasix 1 time. 4. Ambulate with assist and up in chair.
[2019-12-10] MEDS: Acetaminophen/HYDROcodone 325-5 MG Tab PO PRN ×2 (08:18→15:28)
[2019-12-10] MEDS ORDERED: Warfarin 5 MG Tab PO SCH (09:00)
[2019-12-10] MEDS ORDERED: glipiZIDE 2.5 MG Tab.ER PO SCH (09:00)
[2019-12-10] MEDS: Lisinopril 10 MG Tab PO SCH (09:49)
[2019-12-10] MEDS: Furosemide 20 MG Tab PO SCH ×2 (09:50→15:28)
[2019-12-10] MEDS: Multivitamin Tab PO SCH (09:50)
[2019-12-10] MEDS: Isosorbide Mononitrate 30 MG Tab.ER PO SCH ×2 (09:51→15:32)
[2019-12-10] MEDS: Acetaminophen 500 MG Tab PO SCH ×2 (09:51→20:58)
[2019-12-10] MEDS: Bisacodyl 5 MG Tab PO PRN (09:56)
[2019-12-10] MEDS: Docusate Sodium 100 MG Cap PO PRN (09:56)
[2019-12-10] MEDS ORDERED: glipiZIDE 5 MG Tab.ER PO SCH (09:58)
[2019-12-10] MEDS ORDERED: glipiZIDE 5 MG Tab.ER PO ONE (10:15)
[2019-12-10] MEDS: Metoprolol Succinate 100 MG Tab.ER PO SCH (20:57)
[2019-12-10] MEDS ORDERED: SitaGLIPtin 25 MG Tab PO SCH (21:00)
--- NOTE | 2019-12-11 08:29 | PCM.PN ---
- General Info Date of Service: 12/11/19 Admission Dx/Problem (Free Text): Patient states she feels better. She has not a BM in 2 days. She had a large when she came in. Shows his old chest pain and that's not any different. She denies any leg swelling, shortness of breath fevers or chills - Patient Data Vitals - Most Recent: Last Vital Signs Temp 97.4 F 12/11/19 00:00 Pulse 70 12/11/19 00:00 Resp 20 12/11/19 00:00 BP 138/63 12/11/19 00:00 Pulse Ox 94 L 12/11/19 00:19 Weight - Most Recent: 179 lb 14.4 oz I&O - Last 24 Hours: Intake & Output 12/10/19 12/11/19 12/11/19 22:59 06:59 14:59 Intake Total 100 Output Total 950 1600 Balance -850 -1600 Lab Results Last 24 Hours: Laboratory Results - last 24 hr 12/10/19 12/10/19 12/11/19 Range/Units 05:05 17:49 06:45 PT 17.4 H (9.0-11.1) sec INR 1.66 H (1.00-1.24) POC Glucose 222 H 339 H (74-100) mg/dL 12/11/19 Range/Units 06:50 PT (9.0-11.1) sec INR (1.00-1.24) POC Glucose 134 H (74-100) mg/dL Med Orders - Current: Current Medications Acetaminophen (Tylenol Extra Strength) 500 mg PO DAILY [facility] Last Admin: 12/10/19 09:51 Dose: 500 mg Documented by: Acetaminophen (Tylenol Extra Strength) 1,000 mg PO BEDTIME [facility] Last Admin: 12/10/19 20:58 Dose: 1,000 mg Documented by: Hydrocodone Bitart/Acetaminophen (Hubbard 325-5 Mg) 1 tab PO Q6H PRN PRN Reason: Pain Last Admin: 12/10/19 15:28 Dose: 1 tab Documented by: Bisacodyl (Dulcolax) 5 mg PO DAILY PRN PRN Reason: Constipation Last Admin: 12/10/19 09:56 Dose: 5 mg Documented by: Docusate Sodium (Colace) 100 mg PO BID PRN PRN Reason: Constipation Last Admin: 12/10/19 09:56 Dose: 100 mg Documented by: Furosemide (Lasix) 60 mg PO DAILY [facility] Last Admin: 12/10/19 09:50 Dose: 60 mg Documented by: Furosemide (Lasix) 20 mg PO DAILY@1400 [facility] Last Admin: 12/10/19 15:28 Dose: 20 mg Documented by: Glipizide (Glucotrol Xl) 2.5 mg PO DAILY [facility] Isosorbide Mononitrate (Imdur) 30 mg PO DAILY@1600 [facility] Last Admin: 12/10/19 15:32 Dose: 30 mg Documented by: Isosorbide Mononitrate (Imdur) 90 mg PO DAILY [facility] Last Admin: 12/10/19 09:51 Dose: 90 mg Documented by: Lisinopril (Prinivil) 10 mg PO DAILY [facility] Last Admin: 12/10/19 09:49 Dose: 10 mg Documented by: Metoprolol Succinate (Toprol Xl) 100 mg PO BEDTIME [facility] Last Admin: 12/10/19 20:57 Dose: 100 mg Documented by: Multivitamins/Minerals/Vitamin C (Tab-A-Zachary) 1 tab PO DAILY [facility] Last Admin: 12/10/19 09:50 Dose: 1 tab Documented by: Nitrofurantoin Macrocrystals (Macrodantin) 50 mg PO MOWEFR@2100 [facility] Nitroglycerin (Nitrostat) 0.4 mg SL Q5M PRN PRN Reason: Chest Pain Last Admin: 12/10/19 08:19 Dose: 0.4 mg Documented by: Ondansetron HCl (Zofran Odt) 4 mg PO Q6H PRN PRN Reason: Nausea/Vomiting Last Admin: 12/09/19 16:19 Dose: 4 mg Documented by: Polyethylene Glycol (Miralax) 17 gm PO DAILY [facility] Sitagliptin Phosphate (Januvia) 25 mg PO DAILY [facility] Sodium Chloride (Saline Flush) 10 ml FLUSH ASDIRECTED PRN PRN Reason: Keep Vein Open Last Admin: 12/09/19 12:50 Dose: 10 ml Documented by: Warfarin Sodium (Coumadin) 5 mg PO 1600 [facility] Warfarin Sodium (Coumadin Sliding Scale) 1 each PO ASDIRECTED [facility] Discontinued Medications Furosemide (Lasix) 80 mg IVPUSH NOW ONE Stop: 12/09/19 14:10 Last Admin: 12/09/19 14:18 Dose: 80 mg Documented by: Glipizide (Glucotrol Xl) 2.5 mg PO DAILY [facility] Last Admin: 12/10/19 10:29 Dose: Not Given Documented by: Glipizide (Glucotrol Xl) 2.5 mg PO ONETIME ONE Stop: 12/10/19 10:16 Last Admin: 12/10/19 10:12 Dose: 2.5 mg Documented by: Metolazone (Zaroxolyn) 2.5 mg PO ONETIME ONE Stop: 12/10/19 08:04 Last Admin: 12/10/19 08:18 Dose: 2.5 mg Documented by: Non-Formulary Medication (Fluocinolone Acetonide [Fluocinolone Acetonide]) 4 drop EARBOTH ASDIRECTED PRN PRN Reason: Dizziness Sitagliptin Phosphate (Januvia) 25 mg PO BID [facility] Last Admin: 12/10/19 21:28 Dose: 25 mg Documented by: Warfarin Sodium (Coumadin) 5 mg PO DAILY [facility] Last Admin: 12/10/19 09:50 Dose: 5 mg Documented by: - Exam General: Oriented, Severe Distress Lungs: Normal Respiratory Effort, Crackles (Bases bilateral) Cardiovascular: Regular Rate, Regular Rhythm, No Murmurs Extremities: No Pedal Edema Sepsis Event Note - Evaluation Sepsis Screening Result: No Definite Risk - Focused Exam Vital Signs: Vital Signs Temp Temp Pulse Pulse Resp BP BP 12/11/19 00:19 12/11/19 00:00 97.4 F 70 20 138/63 12/10/19 20:57 96 158/94 H 12/10/19 20:56 97.8 F 96 20 158/94 H Pulse Ox Pulse Ox 12/11/19 00:19 94 L 12/11/19 00:00 94 L 12/10/19 20:57 12/10/19 20:56 97 - Problem List & Annotations (1) Palliative care status SNOMED Code(s): 243531693 Code(s): Z51.5 - ENCOUNTER FOR PALLIATIVE CARE Status: Acute Current Visit: Yes (2) CHF exacerbation SNOMED Code(s): 813296873, 04600497117844 Code(s): I50.9 - HEART FAILURE, UNSPECIFIED Status: Acute Current Visit: Yes (3) Chest wall muscle strain SNOMED Code(s): 043637613 Code(s): S29.011A - STRAIN OF MUSCLE AND TENDON OF FRONT WALL OF THORAX, INIT Status: Acute Current Visit: No (4) Elevated brain natriuretic peptide (BNP) level SNOMED Code(s): 180229209, 487958853 Code(s): R79.89 - OTHER SPECIFIED ABNORMAL FINDINGS OF BLOOD CHEMISTRY Status: Acute Current Visit: No (5) Ischemic cardiomyopathy SNOMED Code(s): 023084289 Code(s): I25.5 - ISCHEMIC CARDIOMYOPATHY Status: Acute Current Visit: No (6) Parkinson disease SNOMED Code(s): 05807707 Code(s): G20 - PARKINSON'S DISEASE Status: Acute Current Visit: No (7) Weakness SNOMED Code(s): 28574090 Code(s): R53.1 - WEAKNESS Status: Acute Current Visit: No (8) Afib SNOMED Code(s): 50392381 Code(s): I48.91 - UNSPECIFIED ATRIAL FIBRILLATION Status: Chronic Current Visit: No Qualifiers: Atrial fibrillation type: longstanding persistent Qualified Code(s): I48.11 - Longstanding persistent atrial fibrillation (9) Diabetes mellitus type 2, diet-controlled SNOMED Code(s): 617614243797809, 270607338610408 Code(s): E11.9 - TYPE 2 DIABETES MELLITUS WITHOUT COMPLICATIONS Status: Chronic Current Visit: No (10) Hyponatremia SNOMED Code(s): 38748396 Code(s): E87.1 - HYPO-OSMOLALITY AND HYPONATREMIA Status: Acute Current Visit: Yes (11) Constipation SNOMED Code(s): 20988337 Code(s): K59.00 - CONSTIPATION, UNSPECIFIED Status: Acute Current Visit: Yes - Problem List Review Problem List Initiated/Reviewed/Updated: Yes - My Orders Last 24 Hours: My Active Orders 12/10/19 09:00 Furosemide [Lasix] 60 mg PO DAILY 12/10/19 14:00 Furosemide [Lasix] 20 mg PO DAILY@1400 12/10/19 16:05 Vital Signs [RC] PER UNIT ROUTINE 12/11/19 08:30 Warfarin Sliding Scale [Coumadin Sliding Scale] 1 each PO ASDIRECTED 12/11/19 09:00 SitaGLIPtin [Januvia] 25 mg PO DAILY polyethylene glycoL 3350 [MiraLAX] 17 gm PO DAILY 12/11/19 21:00 nitrofurantoin macrocrystaL [Macrodantin] 50 mg PO MOWEFR@2100 12/12/19 06:00 INR,PT,PROTHROMBIN TIME [COAG] DAILY 12/13/19 06:00 INR,PT,PROTHROMBIN TIME [COAG] DAILY 12/14/19 06:00 INR,PT,PROTHROMBIN TIME [COAG] DAILY - Assessment Assessment:: 1. Start MiraLAX today daily 2. PT/OT to evaluate today. 3. No changes in Lasix dose. - Plan Plan:: 1. DC telemetry 2. Lasix 60 mg in the morning and 20 mg in the afternoon. 3. Metolazone 2.5 mg before the morning dose of Lasix 1 time. 4. Ambulate with assist and up in chair.
[2019-12-11] MEDS ORDERED: Warfarin Sliding Scale PO SCH (08:30)
[2019-12-11] MEDS: Isosorbide Mononitrate 30 MG Tab.ER PO SCH ×2 (09:13→17:12)
[2019-12-11] MEDS: Polyethylene Glycol 3350 Powder 17 GM Packet PO SCH ×2 (09:15→14:09)
[2019-12-11] MEDS: Acetaminophen 500 MG Tab PO SCH ×2 (09:15→20:55)
[2019-12-11] MEDS: Furosemide 20 MG Tab PO SCH ×2 (09:15→14:11)
[2019-12-11] MEDS: Multivitamin Tab PO SCH (09:15)
[2019-12-11] MEDS: Lisinopril 10 MG Tab PO SCH (09:22)
[2019-12-11] MEDS ORDERED: Bisacodyl 10 MG Supp RECTAL PRN (10:12)
[2019-12-11] MEDS: glipiZIDE 5 MG Tab PO SCH (10:44)
[2019-12-11] MEDS ORDERED: Warfarin 5 MG Tab PO SCH (16:00)
[2019-12-11] MEDS: Metoprolol Succinate 100 MG Tab.ER PO SCH (20:58)
[2019-12-11] MEDS ORDERED: Nitrofurantoin Macrocrystal 50 MG Cap PO SCH (21:00)
[2019-12-12] MEDS: Polyethylene Glycol 3350 Powder 17 GM Packet PO SCH (08:12)
[2019-12-12] MEDS: Acetaminophen/HYDROcodone 325-5 MG Tab PO PRN (08:13)
[2019-12-12] MEDS: glipiZIDE 5 MG Tab PO SCH (08:14)
[2019-12-12] MEDS: Bisacodyl 5 MG Tab PO PRN (08:14)
[2019-12-12] MEDS: Docusate Sodium 100 MG Cap PO PRN (08:14)
[2019-12-12] MEDS: Multivitamin Tab PO SCH (08:15)
[2019-12-12] MEDS: Lisinopril 10 MG Tab PO SCH (08:15)
[2019-12-12] MEDS: Isosorbide Mononitrate 30 MG Tab.ER PO SCH (08:16)
[2019-12-12] MEDS: Furosemide 20 MG Tab PO SCH (08:17)
[2019-12-12] MEDS: Acetaminophen 500 MG Tab PO SCH (08:18)
--- NOTE | 2019-12-12 08:19 | PCM.PN ---
- General Info Date of Service: 12/12/19 Admission Dx/Problem (Free Text): Patient still has not moved her bowels that is a concerning to her. She says she feels is right there but she can get it to move. She denies any shortness of breath that's any worsening normal. No leg swelling. Hours is a little bit of chest pain that has not changed. - Patient Data Vitals - Most Recent: Last Vital Signs Temp 97.8 F 12/11/19 20:58 Pulse 76 12/12/19 02:01 Resp 20 12/12/19 02:01 BP 114/58 L 12/12/19 02:01 Pulse Ox 98 12/12/19 02:01 Weight - Most Recent: 176 lb I&O - Last 24 Hours: Intake & Output 12/11/19 12/12/19 12/12/19 22:59 06:59 14:59 Intake Total 500 Output Total 950 1000 Balance -450 -1000 Lab Results Last 24 Hours: Laboratory Results - last 24 hr 12/11/19 12/12/19 12/12/19 Range/Units 16:56 05:05 05:55 PT 19.5 H (9.0-11.1) sec INR 1.89 H (1.00-1.24) POC Glucose 122 H 132 H (74-100) mg/dL Med Orders - Current: Current Medications Acetaminophen (Tylenol Extra Strength) 500 mg PO DAILY [facility] Last Admin: 12/11/19 09:15 Dose: 500 mg Documented by: Acetaminophen (Tylenol Extra Strength) 1,000 mg PO BEDTIME [facility] Last Admin: 12/11/19 20:55 Dose: 1,000 mg Documented by: Hydrocodone Bitart/Acetaminophen ([place] 325-5 Mg) 1 tab PO Q6H PRN PRN Reason: Pain Last Admin: 12/10/19 15:28 Dose: 1 tab Documented by: Bisacodyl (Dulcolax) 5 mg PO DAILY PRN PRN Reason: Constipation Last Admin: 12/10/19 09:56 Dose: 5 mg Documented by: Bisacodyl (Dulcolax) 10 mg RECTAL DAILY PRN PRN Reason: Constipation Last Admin: 12/11/19 11:06 Dose: 10 mg Documented by: Docusate Sodium (Colace) 100 mg PO BID PRN PRN Reason: Constipation Last Admin: 12/10/19 09:56 Dose: 100 mg Documented by: Furosemide (Lasix) 60 mg PO DAILY [facility] Last Admin: 12/11/19 09:15 Dose: 60 mg Documented by: Furosemide (Lasix) 20 mg PO DAILY@1400 [facility] Last Admin: 12/11/19 14:11 Dose: 20 mg Documented by: Glipizide (Glucotrol) 2.5 mg PO DAILY [facility] Last Admin: 12/11/19 10:44 Dose: 2.5 mg Documented by: Isosorbide Mononitrate (Imdur) 30 mg PO DAILY@1600 [facility] Last Admin: 12/11/19 17:12 Dose: 30 mg Documented by: Isosorbide Mononitrate (Imdur) 90 mg PO DAILY [facility] Last Admin: 12/11/19 09:13 Dose: 90 mg Documented by: Lisinopril (Prinivil) 10 mg PO DAILY [facility] Last Admin: 12/11/19 09:22 Dose: 10 mg Documented by: Metoprolol Succinate (Toprol Xl) 100 mg PO BEDTIME [facility] Last Admin: 12/11/19 20:58 Dose: 100 mg Documented by: Multivitamins/Minerals/Vitamin C (Tab-A-Zachary) 1 tab PO DAILY [facility] Last Admin: 12/11/19 09:15 Dose: 1 tab Documented by: Nitrofurantoin Macrocrystals (Macrodantin) 50 mg PO MOWEFR@2100 [facility] Last Admin: 12/11/19 20:55 Dose: 50 mg Documented by: Nitroglycerin (Nitrostat) 0.4 mg SL Q5M PRN PRN Reason: Chest Pain Last Admin: 12/10/19 08:19 Dose: 0.4 mg Documented by: Ondansetron HCl (Zofran Odt) 4 mg PO Q6H PRN PRN Reason: Nausea/Vomiting Last Admin: 12/09/19 16:19 Dose: 4 mg Documented by: Polyethylene Glycol (Miralax) 17 gm PO DAILY [facility] Last Admin: 12/11/19 14:09 Dose: 17 gm Documented by: Sitagliptin Phosphate (Januvia) 25 mg PO DAILY [facility] Last Admin: 12/11/19 09:14 Dose: 25 mg Documented by: Sodium Chloride (Saline Flush) 10 ml FLUSH ASDIRECTED PRN PRN Reason: Keep Vein Open Last Admin: 12/09/19 12:50 Dose: 10 ml Documented by: Warfarin Sodium (Coumadin) 5 mg PO 1600 [facility] Last Admin: 12/11/19 17:11 Dose: 5 mg Documented by: Warfarin Sodium (Coumadin Sliding Scale) 1 each PO ASDIRECTED [facility] Discontinued Medications Furosemide (Lasix) 80 mg IVPUSH NOW ONE Stop: 12/09/19 14:10 Last Admin: 12/09/19 14:18 Dose: 80 mg Documented by: Glipizide (Glucotrol Xl) 2.5 mg PO DAILY [facility] Last Admin: 12/10/19 10:29 Dose: Not Given Documented by: Glipizide (Glucotrol Xl) 2.5 mg PO DAILY [facility] Glipizide (Glucotrol Xl) 2.5 mg PO ONETIME ONE Stop: 12/10/19 10:16 Last Admin: 12/10/19 10:12 Dose: 2.5 mg Documented by: Metolazone (Zaroxolyn) 2.5 mg PO ONETIME ONE Stop: 12/10/19 08:04 Last Admin: 12/10/19 08:18 Dose: 2.5 mg Documented by: Non-Formulary Medication (Fluocinolone Acetonide [Fluocinolone Acetonide]) 4 drop EARBOTH ASDIRECTED PRN PRN Reason: Dizziness Sitagliptin Phosphate (Januvia) 25 mg PO BID [facility] Last Admin: 12/10/19 21:28 Dose: 25 mg Documented by: Warfarin Sodium (Coumadin) 5 mg PO DAILY [facility] Last Admin: 12/10/19 09:50 Dose: 5 mg Documented by: - Exam General: Alert, Oriented Lungs: Normal Respiratory Effort, Crackles (Improved) Cardiovascular: Regular Rate, Regular Rhythm, No Murmurs GI/Abdominal Exam: Soft, Non-Tender, No Distention Extremities: No Pedal Edema Sepsis Event Note - Evaluation Sepsis Screening Result: No Definite Risk - Focused Exam Vital Signs: Vital Signs Temp Pulse Pulse Resp BP BP Pulse Ox 12/12/19 02:01 76 20 114/58 L 98 12/11/19 20:58 97.8 F 74 74 20 139/76 139/76 100 - Problem List & Annotations (1) Palliative care status SNOMED Code(s): 234158477 Code(s): Z51.5 - ENCOUNTER FOR PALLIATIVE CARE Status: Acute Current Visit: Yes (2) CHF exacerbation SNOMED Code(s): 953747973, 11606079060253 Code(s): I50.9 - HEART FAILURE, UNSPECIFIED Status: Acute Current Visit: Yes (3) Chest wall muscle strain SNOMED Code(s): 529121073 Code(s): S29.011A - STRAIN OF MUSCLE AND TENDON OF FRONT WALL OF THORAX, INIT Status: Acute Current Visit: No (4) Elevated brain natriuretic peptide (BNP) level SNOMED Code(s): 938826746, 468823897 Code(s): R79.89 - OTHER SPECIFIED ABNORMAL FINDINGS OF BLOOD CHEMISTRY Status: Acute Current Visit: No (5) Ischemic cardiomyopathy SNOMED Code(s): 257095204 Code(s): I25.5 - ISCHEMIC CARDIOMYOPATHY Status: Acute Current Visit: No (6) Parkinson disease SNOMED Code(s): 14005690 Code(s): G20 - PARKINSON'S DISEASE Status: Acute Current Visit: No (7) Weakness SNOMED Code(s): 81996722 Code(s): R53.1 - WEAKNESS Status: Acute Current Visit: No (8) Afib SNOMED Code(s): 81522780 Code(s): I48.91 - UNSPECIFIED ATRIAL FIBRILLATION Status: Chronic Current Visit: No Qualifiers: Atrial fibrillation type: longstanding persistent Qualified Code(s): I48.11 - Longstanding persistent atrial fibrillation (9) Diabetes mellitus type 2, diet-controlled SNOMED Code(s): 210023392829203, 861360750665398 Code(s): E11.9 - TYPE 2 DIABETES MELLITUS WITHOUT COMPLICATIONS Status: Chronic Current Visit: No (10) Hyponatremia SNOMED Code(s): 46790664 Code(s): E87.1 - HYPO-OSMOLALITY AND HYPONATREMIA Status: Acute Current Visit: Yes (11) Constipation SNOMED Code(s): 65713856 Code(s): K59.00 - CONSTIPATION, UNSPECIFIED Status: Acute Current Visit: Yes - Problem List Review Problem List Initiated/Reviewed/Updated: Yes - My Orders Last 24 Hours: My Active Orders 12/11/19 08:30 Warfarin Sliding Scale [Coumadin Sliding Scale] 1 each PO ASDIRECTED 12/11/19 09:00 SitaGLIPtin [Januvia] 25 mg PO DAILY glipiZIDE [Glucotrol] 2.5 mg PO DAILY polyethylene glycoL 3350 [MiraLAX] 17 gm PO DAILY 12/11/19 10:12 bisacodyL [Dulcolax] 10 mg RECTAL DAILY PRN 12/11/19 21:00 nitrofurantoin macrocrystaL [Macrodantin] 50 mg PO MOWEFR@2100 12/13/19 06:00 INR,PT,PROTHROMBIN TIME [COAG] DAILY 12/14/19 06:00 INR,PT,PROTHROMBIN TIME [COAG] DAILY - Plan Plan:: 1. She is on MiraLAX now and tolerating. Her son says she doesn't like it but she is maximum of the things and it appears to be going well. 2. Start some positive get her moving her bowels.
[2019-12-12] MEDS ORDERED: Bisacodyl 10 MG Supp RECTAL SCH (09:00)
--- NOTE | 2019-12-12 10:51 | PCM.SN.2 ---
- Free Text/Narrative Note: Patient had a BM this morning. Will discharge on home health.
--- NOTE | 2019-12-12 10:53 | PCM.DCSUM1 ---
Discharge Summary - Hospital Course Free Text/Narrative:: Hospital course-patient had a large BM before she was transferred to the floor which made her feel much better. She is put on some IV Lasix initially had a good diuresis and then paced her on oral 60 mg a morning and 20 in the afternoon. Patient did really well and her breathing improved. She's till had some positive constipation went 2 days with no BM and had a MRSA positive from [facility] and she moved her bowels per she ounces over the chest pain but that was not any different than normal. She denies leg swelling, fevers, chills. The INR was managed by pharmacy. Her blood sugars elevated and I allergen to be which brought her blood sugars down nicely. Brief History: This is an 89-year-old female patient lives with herself with known history of CHF, angina, COPD, atrial fibrillation has 5 days of feeling weak and short of breath. She's been sitting up in her bed in a chair. She uses 2 pillows to sleep. She's gained about 9 pounds she states her home scale. She denies leg swelling. She has chronic rhinitis but no coughing, wheezing, fevers, chills. She's not been able to move her bowels for 5 days and had some abdominal pain and distention. She denies dysuria, pyuria, hematuria. She has had some chest pain which is chronic condition for. She says isosorbide is help that. It's better at this point when I'm talking to her. Diagnosis: Stroke: No - Discharge Data Discharge Date: 12/12/19 Discharge Disposition: Home, W Home Health Agency 06 Condition: Good - Referral to Home Health Date of Face to Face Encounter: 12/12/19 Reason for Homebound Status: CHF poorly controlled, chronic constipation, weakness, diabetes Primary Care Physician: Jacky Ryder MD Skilled Need: 1. Medication teaching, home safety, strengthening, ambulation, daily weights - Discharge Diagnosis/Problem(s) (1) Palliative care status SNOMED Code(s): 897569497 ICD Code: Z51.5 - ENCOUNTER FOR PALLIATIVE CARE Status: Acute Current Visit: Yes (2) CHF exacerbation SNOMED Code(s): 362872470, 20507870927542 ICD Code: I50.9 - HEART FAILURE, UNSPECIFIED Status: Acute Current Visit: Yes (3) Chest wall muscle strain SNOMED Code(s): 597961474 ICD Code: S29.011A - STRAIN OF MUSCLE AND TENDON OF FRONT WALL OF THORAX, INIT Status: Acute Current Visit: No (4) Elevated brain natriuretic peptide (BNP) level SNOMED Code(s): 876417755, 300050522 ICD Code: R79.89 - OTHER SPECIFIED ABNORMAL FINDINGS OF BLOOD CHEMISTRY Status: Acute Current Visit: No (5) Ischemic cardiomyopathy SNOMED Code(s): 440617677 ICD Code: I25.5 - ISCHEMIC CARDIOMYOPATHY Status: Acute Current Visit: No (6) Parkinson disease SNOMED Code(s): 98348016 ICD Code: G20 - PARKINSON'S DISEASE Status: Acute Current Visit: No (7) Weakness SNOMED Code(s): 57173074 ICD Code: R53.1 - WEAKNESS Status: Acute Current Visit: No (8) Afib SNOMED Code(s): 10374826 ICD Code: I48.91 - UNSPECIFIED ATRIAL FIBRILLATION Status: Chronic Current Visit: No Qualifiers: Atrial fibrillation type: longstanding persistent Qualified Code(s): I48.11 - Longstanding persistent atrial fibrillation (9) Diabetes mellitus type 2, diet-controlled SNOMED Code(s): 814164150453727, 615749358233207 ICD Code: E11.9 - TYPE 2 DIABETES MELLITUS WITHOUT COMPLICATIONS Status: Chronic Current Visit: No (10) Hyponatremia SNOMED Code(s): 33309736 ICD Code: E87.1 - HYPO-OSMOLALITY AND HYPONATREMIA Status: Acute Current Visit: Yes (11) Constipation SNOMED Code(s): 25094540 ICD Code: K59.00 - CONSTIPATION, UNSPECIFIED Status: Acute Current Visit: Yes - Patient Summary/Data Consults: Consultations 12/09/19 15:58 Consult to Case Management/Mortician Investigator [CONS] Routine Comment: Physician Instructions: Service(s) to be Consulted: Mortician Investigator Consult to Occupational Therapy [OT Evaluation and Treatment] [CONS] Routine Please Evaluate and Treat. OT Reason for Consult: Strengthening This query below is only for informational purposes and is not editable. Admission Diagnosis/Problem: CHF, Congestive heart failure Consult to Physical Therapy [PT Evaluation and Treatment] [CONS] Routine Please Evaluate and Treat. PT Reason for Consult: Strengthening This query below is only for informational purposes and is not editable. Admission Diagnosis/Problem: CHF, Congestive heart failure - Patient Instructions Diet: Low Sodium, Diabetic Diet Activity: As Tolerated Driving: Do Not Drive Showering/Bathing: May Shower Other/Special Instructions: 1. Recheck with Dr. Ryder in 1 week. 2. PT/OT/home health - Discharge Plan Prescriptions/Med Rec: SitaGLIPtin [Januvia] 25 mg PO DAILY #0 tablet Furosemide [Lasix] 20 mg PO DAILY@1400 #30 tablet Furosemide [Lasix] 60 mg PO DAILY #30 tablet polyethylene glycoL 3350 [MiraLAX] 17 gm PO DAILY #500 packet Sodium Chloride 0.9% [Saline Flush] 10 ml FLUSH ASDIRECTED PRN #30 syringe PRN Reason: Keep Vein Open Home Medications: Home Meds Docusate Sodium 100 mg PO BID PRN 03/14/19 [History] Fluocinolone Acetonide 4 drop EARBOTH ASDIRECTED PRN 03/14/19 [History] Isosorbide Mononitrate [Imdur] 90 mg PO DAILY 03/14/19 [History] Metoprolol Succinate [Toprol XL 100mg] 100 mg PO BEDTIME 03/14/19 [History] Nitroglycerin 0.4 mg SL Q5M PRN 03/14/19 [History] Peppermint Oil Cap 1 cap PO BEDTIME 03/14/19 [History] Triamcinolone Acetonide [Triamcinolone Acetonide 0.1% Crm] 1 applic TOP BID PRN 03/14/19 [History] Ubidecarenone [Coenzyme Q10] 100 mg PO QPM 03/14/19 [History] Warfarin [Coumadin] 5 mg PO SUTUWETHSA 03/14/19 [History] lisinopriL [Zestril] 10 mg PO DAILY 03/14/19 [History] nitrofurantoin macrocrystaL [Macrodantin] 50 mg PO MOWEFR@2100 03/14/19 [History] Acetaminophen [Tylenol Extra Strength] 1,000 mg PO BEDTIME 10/26/19 [History] Cholecalciferol (Vitamin D3) [Vitamin D3] 10 mcg PO DAILY 10/26/19 [History] Acetaminophen [Tylenol Extra Strength] 500 mg PO DAILY tablet 10/30/19 [Rx] Ascorbic Acid [Vitamin C] 1,000 mg PO BEDTIME tablet 10/30/19 [Rx] Isosorbide Mononitrate [Imdur] 30 mg PO DAILY@1600 tab.er 10/30/19 [Rx] Multivitamins [Tab-A-Zachary] 1 tab PO DAILY tablet 10/30/19 [Rx] bisacodyL [Dulcolax] 5 mg PO DAILY PRN tablet 10/30/19 [Rx] glipiZIDE [Glucotrol XL] 2.5 mg PO DAILY #30 tab.er.24 11/03/19 [Rx] Warfarin [Coumadin] 2.5 mg PO MOFR 12/09/19 [History] Ranolazine [Ranolazine ER] 500 mg PO BID 12/11/19 [History] Furosemide [Lasix] 20 mg PO DAILY@1400 #30 tablet 12/12/19 [Rx] Furosemide [Lasix] 60 mg PO DAILY #30 tablet 12/12/19 [Rx] SitaGLIPtin [Januvia] 25 mg PO DAILY #0 tablet 12/12/19 [Rx] Sodium Chloride 0.9% [Saline Flush] 10 ml FLUSH ASDIRECTED PRN #30 syringe 12/12/19 [Rx] polyethylene glycoL 3350 [MiraLAX] 17 gm PO DAILY #500 packet 12/12/19 [Rx] Patient Handouts: Chronic Obstructive Pulmonary Disease Exacerbation, [id number], Type 2 Diabetes Mellitus, Diagnosis, Adult, Heart Failure, Diagnosis, [id number], Fall Prevention in Hospitals, Adult, Venous Thromboembolism Prevention Forms: ED Department Discharge Referrals: Jacky Ryder MD [Primary Care Provider] - - Discharge Summary/Plan Comment DC Time >30 min.: No - Patient Data Vitals - Most Recent: Last Vital Signs Temp 97.6 F 12/12/19 07:25 Pulse 72 12/12/19 07:25 Resp 22 H 12/12/19 07:25 BP 133/76 12/12/19 08:16 Pulse Ox 100 12/12/19 07:25 Weight - Most Recent: 176 lb I&O - Last 24 hours: Intake & Output 12/11/19 12/12/19 12/12/19 22:59 06:59 14:59 Intake Total 500 Output Total 950 1000 400 Balance -450 -1000 -400 Lab Results - Last 24 hrs: Laboratory Results - last 24 hr 12/11/19 12/12/19 12/12/19 Range/Units 16:56 05:05 05:55 PT 19.5 H (9.0-11.1) sec INR 1.89 H (1.00-1.24) POC Glucose 122 H 132 H (74-100) mg/dL Med Orders - Current: Current Medications Acetaminophen (Tylenol Extra Strength) 500 mg PO DAILY [facility] Last Admin: 12/12/19 08:18 Dose: 500 mg Documented by: Acetaminophen (Tylenol Extra Strength) 1,000 mg PO BEDTIME [facility] Last Admin: 12/11/19 20:55 Dose: 1,000 mg Documented by: Hydrocodone Bitart/Acetaminophen ([place] 325-5 Mg) 1 tab PO Q6H PRN PRN Reason: Pain Last Admin: 12/12/19 08:13 Dose: 1 tab Documented by: Bisacodyl (Dulcolax) 5 mg PO DAILY PRN PRN Reason: Constipation Last Admin: 12/12/19 08:14 Dose: 5 mg Documented by: Bisacodyl (Dulcolax) 10 mg RECTAL DAILY PRN PRN Reason: Constipation Last Admin: 12/11/19 11:06 Dose: 10 mg Documented by: Bisacodyl (Dulcolax) 10 mg RECTAL DAILY [facility] Last Admin: 12/12/19 08:49 Dose: 10 mg Documented by: Docusate Sodium (Colace) 100 mg PO BID PRN PRN Reason: Constipation Last Admin: 12/12/19 08:14 Dose: 100 mg Documented by: Furosemide (Lasix) 60 mg PO DAILY [facility] Last Admin: 12/12/19 08:17 Dose: 60 mg Documented by: Furosemide (Lasix) 20 mg PO DAILY@1400 [facility] Last Admin: 12/11/19 14:11 Dose: 20 mg Documented by: Glipizide (Glucotrol) 2.5 mg PO DAILY [facility] Last Admin: 12/12/19 08:14 Dose: 2.5 mg Documented by: Isosorbide Mononitrate (Imdur) 30 mg PO DAILY@1600 [facility] Last Admin: 12/11/19 17:12 Dose: 30 mg Documented by: Isosorbide Mononitrate (Imdur) 90 mg PO DAILY [facility] Last Admin: 12/12/19 08:16 Dose: 90 mg Documented by: Lisinopril (Prinivil) 10 mg PO DAILY [facility] Last Admin: 12/12/19 08:15 Dose: 10 mg Documented by: Metoprolol Succinate (Toprol Xl) 100 mg PO BEDTIME [facility] Last Admin: 12/11/19 20:58 Dose: 100 mg Documented by: Multivitamins/Minerals/Vitamin C (Tab-A-Zachary) 1 tab PO DAILY [facility] Last Admin: 12/12/19 08:15 Dose: 1 tab Documented by: Nitrofurantoin Macrocrystals (Macrodantin) 50 mg PO MOWEFR@2100 [facility] Last Admin: 12/11/19 20:55 Dose: 50 mg Documented by: Nitroglycerin (Nitrostat) 0.4 mg SL Q5M PRN PRN Reason: Chest Pain Last Admin: 12/10/19 08:19 Dose: 0.4 mg Documented by: Ondansetron HCl (Zofran Odt) 4 mg PO Q6H PRN PRN Reason: Nausea/Vomiting Last Admin: 12/09/19 16:19 Dose: 4 mg Documented by: Polyethylene Glycol (Miralax) 17 gm PO DAILY [facility] Last Admin: 12/12/19 08:12 Dose: 17 gm Documented by: Sitagliptin Phosphate (Januvia) 25 mg PO DAILY [facility] Last Admin: 12/12/19 08:16 Dose: 25 mg Documented by: Sodium Chloride (Saline Flush) 10 ml FLUSH ASDIRECTED PRN PRN Reason: Keep Vein Open Last Admin: 12/09/19 12:50 Dose: 10 ml Documented by: Warfarin Sodium (Coumadin) 5 mg PO 1600 [facility] Last Admin: 12/11/19 17:11 Dose: 5 mg Documented by: Warfarin Sodium (Coumadin Sliding Scale) 1 each PO ASDIRECTED [facility] Discontinued Medications Furosemide (Lasix) 80 mg IVPUSH NOW ONE Stop: 12/09/19 14:10 Last Admin: 12/09/19 14:18 Dose: 80 mg Documented by: Glipizide (Glucotrol Xl) 2.5 mg PO DAILY [facility] Last Admin: 12/10/19 10:29 Dose: Not Given Documented by: Glipizide (Glucotrol Xl) 2.5 mg PO DAILY [facility] Glipizide (Glucotrol Xl) 2.5 mg PO ONETIME ONE Stop: 12/10/19 10:16 Last Admin: 12/10/19 10:12 Dose: 2.5 mg Documented by: Metolazone (Zaroxolyn) 2.5 mg PO ONETIME ONE Stop: 12/10/19 08:04 Last Admin: 12/10/19 08:18 Dose: 2.5 mg Documented by: Non-Formulary Medication (Fluocinolone Acetonide [Fluocinolone Acetonide]) 4 drop EARBOTH ASDIRECTED PRN PRN Reason: Dizziness Sitagliptin Phosphate (Januvia) 25 mg PO BID [facility] Last Admin: 12/10/19 21:28 Dose: 25 mg Documented by: Warfarin Sodium (Coumadin) 5 mg PO DAILY [facility] Last Admin: 12/10/19 09:50 Dose: 5 mg Documented by:
== END 2019-12-12 12:50 | disposition home health service (06) | DRG 292 ==
LOC: FB.ED 12:13 → FB.MS 14:07
PROVIDERS: ADMIT Family Medicine; ATTEND Family Medicine
DX: I11.0 Hypertensive heart disease with heart failure (principal); I48.11 Longstanding persistent atrial fibrillation; I48.91 Unspecified atrial fibrillation; E87.1 Hypo-osmolality and hyponatremia; I69.954 Hemiplegia and hemiparesis following unspecified cerebrovascular disease affecting left non-dominant side; I50.9 Heart failure, unspecified; H40.9 Unspecified glaucoma; Z51.5 Encounter for palliative care; J44.9 Chronic obstructive pulmonary disease, unspecified; J31.0 Chronic rhinitis; K59.09 Other constipation; I69.354 Hemiplegia and hemiparesis following cerebral infarction affecting left non-dominant side; S29.011A Strain of muscle and tendon of front wall of thorax, initial encounter; R79.89 Other specified abnormal findings of blood chemistry; I25.5 Ischemic cardiomyopathy; G20 Parkinson's disease; E11.9 Type 2 diabetes mellitus without complications; Z79.01 Long term (current) use of anticoagulants; Z79.899 Other long term (current) drug therapy; Z88.0 Allergy status to penicillin; Z88.2 Allergy status to sulfonamides; Z79.84 Long term (current) use of oral hypoglycemic drugs; H35.30 Unspecified macular degeneration; I25.2 Old myocardial infarction; Z99.81 Dependence on supplemental oxygen; Z95.5 Presence of coronary angioplasty implant and graft; Z87.01 Personal history of pneumonia (recurrent); K57.90 Diverticulosis of intestine, part unspecified, without perforation or abscess without bleeding; M19.90 Unspecified osteoarthritis, unspecified site; G43.909 Migraine, unspecified, not intractable, without status migrainosus; F41.9 Anxiety disorder, unspecified; F32.9 Major depressive disorder, single episode, unspecified; E66.9 Obesity, unspecified; Z98.41 Cataract extraction status, right eye; Z98.42 Cataract extraction status, left eye; Z90.710 Acquired absence of both cervix and uterus
CPT/HCPCS: 36415; 71045; 74019; 80048; 80053; 82962; 83880; 84484; 85025; 85610; 85730; 93005; 93010; 97161-GP; 99222; 99232; 99238; 99285; 99285-25; A9270-GY; J1940

== ENCOUNTER 2020-02-15 16:12 | Inpatient (IN) | payer MEDICARE ==
--- NOTE | 2020-02-15 17:37 | EDM.PDOC ---
ED HPI GENERAL MEDICAL PROBLEM - General Chief Complaint: General Stated Complaint: Constipation Time Seen by Provider: 02/15/20 16:20 Source of Information: Reports: Patient History Limitations: Reports: No Limitations - History of Present Illness INITIAL COMMENTS - FREE TEXT/NARRATIVE: Patient presented to the ED because of constipation for 3-5 days and dry cough . She is supposed to be taking colace 100 mg BID but she's not sure if she is taking it right. She also c/o nausea but no vomiting. Denies any abdominal pain, fever,chills. Her son who is his POA and is in [place] right now want her to stay in the hospital and find fci placement for her. The son said that he have a hard time looking for a fci because of the Covid pandemic. abdomen Pain Score (Numeric/FACES): 4 - Related Data Allergies Allergy/AdvReac Type Severity Reaction Status Date / Time Penicillins Allergy Rash Verified 02/15/20 16:43 Sulfa (Sulfonamide Allergy Rash Verified 02/15/20 16:43 Antibiotics) Home Meds: Home Meds Docusate Sodium 100 mg PO BID PRN 03/14/19 [History] Fluocinolone Acetonide 4 drop EARBOTH ASDIRECTED PRN 03/14/19 [History] Isosorbide Mononitrate [Imdur] 90 mg PO DAILY 03/14/19 [History] Metoprolol Succinate [Toprol XL 100mg] 100 mg PO BEDTIME 03/14/19 [History] Nitroglycerin 0.4 mg SL Q5M PRN 03/14/19 [History] Peppermint Oil Cap 1 cap PO BEDTIME 03/14/19 [History] Triamcinolone Acetonide [Triamcinolone Acetonide 0.1% Crm] 1 applic TOP BID PRN 03/14/19 [History] Ubidecarenone [Coenzyme Q10] 100 mg PO QPM 03/14/19 [History] Warfarin [Coumadin] 5 mg PO SUTUWETHSA 03/14/19 [History] lisinopriL [Zestril] 10 mg PO DAILY 03/14/19 [History] nitrofurantoin macrocrystaL [Macrodantin] 50 mg PO MOWEFR 03/14/19 [History] Acetaminophen [Tylenol Extra Strength] 1,000 mg PO BEDTIME 10/26/19 [History] Cholecalciferol (Vitamin D3) [Vitamin D3] 10 mcg PO DAILY 10/26/19 [History] Acetaminophen [Tylenol Extra Strength] 500 mg PO DAILY tablet 10/30/19 [Rx] Ascorbic Acid [Vitamin C] 1,000 mg PO BEDTIME tablet 10/30/19 [Rx] Multivitamins [Tab-A-Zachary] 1 tab PO DAILY tablet 10/30/19 [Rx] bisacodyL [Dulcolax] 5 mg PO DAILY PRN tablet 10/30/19 [Rx] glipiZIDE [Glucotrol XL] 2.5 mg PO DAILY #30 tab.er.24 11/03/19 [Rx] Warfarin [Coumadin] 2.5 mg PO MOFR 12/09/19 [History] Ranolazine [Ranolazine ER] 500 mg PO BID 12/11/19 [History] Furosemide [Lasix] 20 mg PO DAILY@1400 #30 tablet 12/12/19 [Rx] Furosemide [Lasix] 60 mg PO DAILY #30 tablet 12/12/19 [Rx] SitaGLIPtin [Januvia] 25 mg PO DAILY #0 tablet 12/12/19 [Rx] polyethylene glycoL 3350 [MiraLAX] 17 gm PO DAILY #500 packet 12/12/19 [Rx] Isosorbide Mononitrate [Imdur] 30 mg PO DAILY@1600 02/15/20 [History] Magnesium Citrate 295 ml PO ONETIME #1 bottle 02/15/20 [Rx] Ondansetron [Zofran ODT] 4 mg PO Q4H PRN #5 tab.dis 02/15/20 [Rx] Sennosides/Docusate Sodium [Senna-S] 2 each PO ONETIME #10 tablet 02/15/20 [Rx] polyethylene glycoL 3350 [MiraLAX] 34 gm PO ONETIME #10 packet 02/15/20 [Rx] Past Medical History HEENT History: Reports: Glaucoma, Macular Degeneration Cardiovascular History: Reports: Afib, Heart Failure, Hypertension, MO, Stents Respiratory History: Reports: Pneumonia, Recurrent Other Respiratory History: Is currently on O2 @ 3L/NC @ home. Gastrointestinal History: Reports: Diverticulosis Genitourinary History: Reports: None Other Genitourinary History: PT HAS STRESS INCONT. VOICED. ELIGIBILITY MANAGER History: Reports: Other ELIGIBILITY MANAGER History: Musculoskeletal History: Reports: Arthritis Neurological History: Reports: Concussion, CVA, Migraines, Parkinson's, Vertigo Other Neuro History: CVA with L sided weakness Psychiatric History: Reports: Anxiety, Depression Endocrine/Metabolic History: Reports: Diabetes, Type II, Obesity/BMI 30+ Hematologic History: Reports: Anticoagulation Therapy - Infectious Disease History Infectious Disease History: Reports: Shingles - Past Surgical History HEENT Surgical History: Reports: Cataract Surgery Other HEENT Surgeries/Procedures: bilat cataract Cardiovascular Surgical History: Reports: Coronary Artery Stent Respiratory Surgical History: Reports: None GI Surgical History: Reports: Colonoscopy, Other (See Below) Other GI Surgeries/Procedures: exp lap Female Surgical History: Reports: Hysterectomy Neurological Surgical History: Reports: None Social & Family History - Family History Family Medical History: No Pertinent Family History - Tobacco Use Tobacco Use Status *Q: Never Tobacco User - Caffeine Use Caffeine Use: Reports: None - Recreational Drug Use Recreational Drug Use: No ED ROS GENERAL - Review of Systems Review Of Systems: See Below Constitutional: Reports: No Symptoms HEENT: Reports: No Symptoms Respiratory: Reports: No Symptoms Cardiovascular: Reports: No Symptoms Endocrine: Reports: No Symptoms GI/Abdominal: Reports: Constipation : Reports: No Symptoms Musculoskeletal: Reports: No Symptoms Skin: Reports: No Symptoms Neurological: Reports: No Symptoms ED EXAM, GENERAL - Physical Exam Exam: See Below Exam Limited By: No Limitations General Appearance: Alert, No Apparent Distress Eye Exam: Bilateral Eye: PERRL Ears: Normal External Exam Nose: Normal Inspection, Normal Mucosa, No Blood Throat/Mouth: Normal Inspection, Normal Lips, Normal Teeth Head: Atraumatic, Normocephalic Neck: Normal Inspection, Supple, Non-Tender, Full Range of Motion Respiratory/Chest: No Respiratory Distress, Lungs Clear, Normal Breath Sounds Cardiovascular: Normal Peripheral Pulses, Regular Rate, Rhythm, No Edema, No Gallop GI/Abdominal: Normal Bowel Sounds, Soft, Non-Tender, No Organomegaly Back Exam: Normal Inspection, Full Range of Motion Course - Vital Signs Text/Narrative:: abd xray-see result Vit K 5 mg IV NS @ 75ml/hr Last Recorded V/S: Last Vital Signs Temp 36.4 C 02/15/20 19:53 Pulse 65 02/15/20 20:45 Resp 20 02/15/20 19:53 BP 121/66 02/15/20 20:45 Pulse Ox 100 02/15/20 19:53 - Orders/Labs/Meds Orders: Active Orders 24 hr Category Date Time Status Patient Status [ADT] Routine ADT 02/15/20 19:33 Active EKG Documentation Completion [RC] ASDIRECTED Care 02/15/20 19:48 Active Oxygen Therapy [RC] PRN Care 02/15/20 19:33 Active Pulse Oximetry [RC] CONTINUOUS Care 02/15/20 19:39 Active VTE/DVT Education [RC] Per Unit Routine Care 02/15/20 19:33 Active Vital Signs [RC] Q4H Care 02/15/20 19:33 Active Heart Healthy Diet [DIET] Diet 02/15/20 Breakfast Ordered Abdomen 2V AP Flat Upright [CR] Stat Exams 02/15/20 16:52 Taken BASIC METABOLIC PANEL,BMP [CHEM] AM Lab 02/16/20 05:11 Ordered CBC WITH AUTO DIFF [HEME] AM Lab 02/16/20 05:11 Ordered Acetaminophen [Tylenol Extra Strength] Med 02/16/20 09:00 Active 500 mg PO DAILY Ascorbic Acid [Vitamin C] Med 02/15/20 21:00 Active 1,000 mg PO BEDTIME Cholecalciferol (Vitamin D3) [Vitamin D3] Med 02/16/20 09:00 Active 10 mcg PO DAILY Docusate Sodium [Colace] Med 02/15/20 19:48 Active 100 mg PO BID PRN Docusate Sodium/Sennosides [Senna Plus] Med 02/15/20 19:33 Active 1 tab PO BID PRN Fluocinolone Acetonide [Fluocinolone Acetonide] Med 02/15/20 19:48 Active 4 drop EARBOTH ASDIRECTED PRN Isosorbide Mononitrate [Imdur] Med 02/16/20 16:00 Active 30 mg PO DAILY@1600 Isosorbide Mononitrate [Imdur] Med 02/16/20 09:00 Active 90 mg PO DAILY Metoprolol Succinate [Toprol XL] Med 02/15/20 21:00 Active 100 mg PO BEDTIME Multivitamins [Tab-A-Zachary] Med 02/16/20 09:00 Active 1 tab PO DAILY Nitroglycerin [Nitrostat] Med 12/03/20 19:48 Active 0.4 mg SL Q5M PRN Ondansetron [Zofran] Med 02/15/20 19:45 Active 4 mg IVPUSH Q4H PRN Peppermint Oil Cap Med 02/15/20 21:00 Active 1 cap PO BEDTIME Ranolazine [Ranolazine ER] Med 02/15/20 21:00 Active 500 mg PO BID SitaGLIPtin [Januvia] Med 02/16/20 09:00 Active 25 mg PO DAILY Sodium Chloride 0.9% [Normal Saline] 1,000 ml Med 02/15/20 20:00 Active IV ASDIRECTED Triamcinolone Acetonide [Triamcinolone Acetonide 0.1% Med 02/15/20 19:48 Active Crm] 0 gm TOP BID PRN Ubidecarenone [Coenzyme Q10] Med 02/16/20 17:00 Active 100 mg PO QPM bisacodyL [Dulcolax] Med 02/15/20 19:48 Active 5 mg PO DAILY PRN glipiZIDE [Glucotrol XL] Med 02/16/20 09:00 Active 2.5 mg PO DAILY polyethylene glycoL 3350 [MiraLAX] Med 02/16/20 09:00 Active 17 gm PO DAILY polyethylene glycoL 3350 [MiraLAX] Med 02/15/20 19:33 Active 17 gm PO DAILY PRN Resuscitation Status Routine Resus Stat 02/15/20 19:33 Ordered EKG 12 Lead [EK] Routine Ther 02/15/20 19:48 Ordered Medication Orders Acetaminophen (Tylenol Extra Strength) 500 mg PO DAILY [facility] Ascorbic Acid (Vitamin C) 1,000 mg PO BEDTIME [facility] Last Admin: 02/15/20 20:53 Dose: Not Given Documented by: ELIZABETH Bisacodyl (Dulcolax) 5 mg PO DAILY PRN PRN Reason: Constipation Coenzyme Q10 (Coenzyme Q10) 100 mg PO QPM IFTIKHAR Docusate Sodium (Colace) 100 mg PO BID PRN PRN Reason: Constipation Glipizide (Glucotrol Xl) 2.5 mg PO DAILY [facility] Sodium Chloride (Normal Saline) 1,000 mls @ 75 mls/hr IV ASDIRECTED IFITKHAR Last Admin: 02/15/20 20:25 Dose: 75 mls/hr Documented by: ELIZABETH Isosorbide Mononitrate (Imdur) 30 mg PO DAILY@1600 [facility] Isosorbide Mononitrate (Imdur) 90 mg PO DAILY [facility] Metoprolol Succinate (Toprol Xl) 100 mg PO BEDTIME [facility] Last Admin: 02/15/20 20:45 Dose: 100 mg Documented by: ELIZABETH Multivitamins/Minerals/Vitamin C (Tab-A-Zachary) 1 tab PO DAILY [facility] Nitroglycerin (Nitrostat) 0.4 mg SL Q5M PRN PRN Reason: Chest Pain Non-Formulary Medication (Cholecalciferol (Vitamin D3) [Vitamin D3]) 10 mcg PO DAILY [facility] Non-Formulary Medication (Fluocinolone Acetonide [Fluocinolone Acetonide]) 4 drop EARBOTH ASDIRECTED PRN PRN Reason: Dizziness Non-Formulary Medication (Peppermint Oil Cap) 1 cap PO BEDTIME [facility] Last Admin: 02/15/20 20:52 Dose: Not Given Documented by: ELIZABETH Non-Formulary Medication (Ranolazine [Ranolazine Er]) 500 mg PO BID [facility] Last Admin: 02/15/20 20:53 Dose: Not Given Documented by: ELIZABETH Ondansetron HCl (Zofran) 4 mg IVPUSH Q4H PRN PRN Reason: Nausea/Vomiting Polyethylene Glycol (Miralax) 17 gm PO DAILY PRN PRN Reason: Constipation Polyethylene Glycol (Miralax) 17 gm PO DAILY [facility] Senna/Docusate Sodium (Senna Plus) 1 tab PO BID PRN PRN Reason: Constipation Sitagliptin Phosphate (Januvia) 25 mg PO DAILY [facility] Triamcinolone Acetonide (Triamcinolone Acetonide 0.1% Crm) 0 gm TOP BID PRN PRN Reason: Rash Labs: Laboratory Tests 02/15/20 02/15/20 02/15/20 Range/Units 18:24 18:25 18:25 WBC 8.1 (3.0-10.3) x10-3/uL RBC 4.25 (3.60-5.20) x10(6)uL Hgb 13.3 (11.4-15.5) g/dL Hct 40.9 (34.2-48.2) % MCV 96.3 (76.7-100.5) fL MCH 31.2 (23.9-33.9) pg MCHC 32.4 (31.9-34.8) g/dL RDW 16.2 (12.3-16.5) % Plt Count 176 (151-488) x10(3)uL MPV 11.0 (7.1-12.4) fL Neut % (Auto) 61.0 (30.8-76.2) % Lymph % (Auto) 24.7 (18.4-52.1) % Hartley % (Auto) 11.3 (4.4-15.7) % Eos % (Auto) 2.2 (0.6-8.1) % Baso % (Auto) 0.8 (0.2-1.5) % Neut # (Auto) 4.9 (1.5-6.3) x10-3/uL Lymph # (Auto) 2.0 (1.0-4.4) x10-3/uL Hartley # (Auto) 0.9 (0.3-1.0) x10-3/uL Eos # (Auto) 0.2 (0.0-0.8) x10-3/uL Baso # (Auto) 0.1 (0.0-0.1) x10-3/uL PT 57.8 H* (9.0-11.1) sec INR 6.02 H* (1.00-1.24) Sodium (135-145) mmol/L Potassium (3.5-5.3) mmol/L Chloride (100-110) mmol/L Carbon Dioxide (21-32) mmol/L BUN (7-18) mg/dL Creatinine (0.55-1.02) mg/dL Est Cr Clr Drug Dosing mL/min Estimated GFR (MDRD) (>60) BUN/Creatinine Ratio (9-20) Glucose (80-116) mg/dL Calcium (8.6-10.2) mg/dL Total Bilirubin (0.1-1.3) mg/dL AST (5-25) IU/L ALT (12-36) U/L Alkaline Phosphatase (56-112) IU/L Troponin I (4.0-60.3) pg/mL NT-Pro-B Natriuret Pep (<=450) pg/mL Total Protein (6.0-8.0) g/dL Albumin (3.2-4.6) g/dL Globulin g/dL Albumin/Globulin Ratio SARS-CoV-2 RNA (RYLEE) Negative (NEGATIVE) 02/15/20 02/15/20 Range/Units 18:25 18:25 WBC (3.0-10.3) x10-3/uL RBC (3.60-5.20) x10(6)uL Hgb (11.4-15.5) g/dL Hct (34.2-48.2) % MCV (76.7-100.5) fL MCH (23.9-33.9) pg MCHC (31.9-34.8) g/dL RDW (12.3-16.5) % Plt Count (151-488) x10(3)uL MPV (7.1-12.4) fL Neut % (Auto) (30.8-76.2) % Lymph % (Auto) (18.4-52.1) % Hartley % (Auto) (4.4-15.7) % Eos % (Auto) (0.6-8.1) % Baso % (Auto) (0.2-1.5) % Neut # (Auto) (1.5-6.3) x10-3/uL Lymph # (Auto) (1.0-4.4) x10-3/uL Hartley # (Auto) (0.3-1.0) x10-3/uL Eos # (Auto) (0.0-0.8) x10-3/uL Baso # (Auto) (0.0-0.1) x10-3/uL PT (9.0-11.1) sec INR (1.00-1.24) Sodium 129 L (135-145) mmol/L Potassium 5.5 H D (3.5-5.3) mmol/L Chloride 90 L (100-110) mmol/L Carbon Dioxide 31 (21-32) mmol/L BUN 56 H D (7-18) mg/dL Creatinine 2.7 H* (0.55-1.02) mg/dL Est Cr Clr Drug Dosing 10.34 mL/min Estimated GFR (MDRD) 17 L (>60) BUN/Creatinine Ratio 20.7 H (9-20) Glucose 255 H (80-116) mg/dL Calcium 9.2 (8.6-10.2) mg/dL Total Bilirubin 1.1 (0.1-1.3) mg/dL AST 339 H* D (5-25) IU/L ALT 444 H* D (12-36) U/L Alkaline Phosphatase 44 L (56-112) IU/L Troponin I 18.3 (4.0-60.3) pg/mL NT-Pro-B Natriuret Pep 21961 H* (<=450) pg/mL Total Protein 7.4 (6.0-8.0) g/dL Albumin 3.5 (3.2-4.6) g/dL Globulin 3.9 g/dL Albumin/Globulin Ratio 0.9 SARS-CoV-2 RNA (RYLEE) (NEGATIVE) Meds: Medications Generic Name Dose Route Start Last Admin Trade Name Freq PRN Reason Stop Dose Admin Acetaminophen 500 mg 02/16/20 09:00 Tylenol Extra Strength PO DAILY [facility] Ascorbic Acid 1,000 mg 02/15/20 21:00 02/15/20 20:53 Vitamin C PO Not Given BEDTIME IFTIKHAR Bisacodyl 5 mg 02/15/20 19:48 Dulcolax PO DAILY PRN Constipation Coenzyme Q10 100 mg 02/16/20 17:00 Coenzyme Q10 PO QPM [facility] Docusate Sodium 100 mg 02/15/20 19:48 Colace PO BID PRN Constipation Glipizide 2.5 mg 02/16/20 09:00 Glucotrol Xl PO DAILY [facility] Sodium Chloride 1,000 mls @ 75 mls/hr 02/15/20 20:00 02/15/20 20:25 Normal Saline IV 75 mls/hr ASDIRECTED IFTIKHAR Administration Isosorbide Mononitrate 30 mg 02/16/20 16:00 Imdur PO DAILY@1600 IFTIKHAR Isosorbide Mononitrate 90 mg 02/16/20 09:00 Imdur PO DAILY [facility] Metoprolol Succinate 100 mg 02/15/20 21:00 02/15/20 20:45 Toprol Xl PO 100 mg BEDTIME IFTIKHAR Administration Multivitamins/Minerals/Vitamin C 1 tab 02/16/20 09:00 Tab-A-Zachary PO DAILY [facility] Nitroglycerin 0.4 mg 02/15/20 19:48 Nitrostat SL Q5M PRN Chest Pain Non-Formulary Medication 10 mcg 02/16/20 09:00 Cholecalciferol (Vitamin D3) [Vitamin D3] PO DAILY IFTIKHAR Non-Formulary Medication 4 drop 02/15/20 19:48 Fluocinolone Acetonide [Fluocinolone Acetonide] EARBOTH ASDIRECTED PRN Dizziness Non-Formulary Medication 1 cap 02/15/20 21:00 02/15/20 20:52 Peppermint Oil Cap PO Not Given BEDTIME IFTIKHAR Non-Formulary Medication 500 mg 02/15/20 21:00 02/15/20 20:53 Ranolazine [Ranolazine Er] PO Not Given BID IFTIKHAR Ondansetron HCl 4 mg 02/15/20 19:45 Zofran IVPUSH Q4H PRN Nausea/Vomiting Polyethylene Glycol 17 gm 02/15/20 19:33 Miralax PO DAILY PRN Constipation Polyethylene Glycol 17 gm 02/16/20 09:00 Miralax PO DAILY IFTIKHAR Senna/Docusate Sodium 1 tab 02/15/20 19:33 Senna Plus PO BID PRN Constipation Sitagliptin Phosphate 25 mg 02/16/20 09:00 Januvia PO DAILY IFTIKHAR Triamcinolone Acetonide 0 gm 02/15/20 19:48 Triamcinolone Acetonide 0.1% Crm TOP BID PRN Rash Discontinued Medications Generic Name Dose Route Start Last Admin Trade Name Freq PRN Reason Stop Dose Admin Phytonadione 5 mg/ Sodium 50.5 mls @ 100 mls/hr 02/15/20 19:47 02/15/20 20:38 Chloride IV 02/15/20 20:17 100 mls/hr NOW ONE Administration Departure - Departure Time of Disposition: 16:00 Disposition: Admitted As Inpatient 67 Condition: Good Clinical Impression: Constipation, Dehydration, Acute kidney injury, Hyperkalemia - Discharge Information Sepsis Event Note (ED) - Evaluation Sepsis Screening Result: No Definite Risk - Focused Exam Vital Signs: Vital Signs Temp Pulse Resp BP Pulse Ox 02/15/20 18:30 65 18 116/64 98 02/15/20 16:45 65 16 109/60 99 02/15/20 16:30 65 18 100/72 100 02/15/20 16:15 36.4 C 65 16 116/70 100 - My Orders Last 24 Hours: My Active Orders 02/15/20 Breakfast Heart Healthy Diet [DIET] 02/15/20 16:52 Abdomen 2V AP Flat Upright [CR] Stat 02/15/20 19:33 Patient Status [ADT] Routine Oxygen Therapy [RC] PRN VTE/DVT Education [RC] Per Unit Routine Vital Signs [RC] Q4H Docusate Sodium/Sennosides [Senna Plus] 1 tab PO BID PRN polyethylene glycoL 3350 [MiraLAX] 17 gm PO DAILY PRN Resuscitation Status Routine 02/15/20 19:39 Pulse Oximetry [RC] CONTINUOUS 02/15/20 19:45 Ondansetron [Zofran] 4 mg IVPUSH Q4H PRN 02/15/20 19:48 EKG Documentation Completion [RC] ASDIRECTED Docusate Sodium [Colace] 100 mg PO BID PRN Fluocinolone Acetonide [Fluocinolone Acetonide] 4 drop EARBOTH ASDIRECTED PRN Nitroglycerin [Nitrostat] 0.4 mg SL Q5M PRN Triamcinolone Acetonide [Triamcinolone Acetonide 0.1% Crm] 0 gm TOP BID PRN bisacodyL [Dulcolax] 5 mg PO DAILY PRN EKG 12 Lead [EK] Routine 02/15/20 20:00 Sodium Chloride 0.9% [Normal Saline] 1,000 ml IV ASDIRECTED 02/15/20 21:00 Ascorbic Acid [Vitamin C] 1,000 mg PO BEDTIME Metoprolol Succinate [Toprol XL] 100 mg PO BEDTIME Peppermint Oil Cap 1 cap PO BEDTIME Ranolazine [Ranolazine ER] 500 mg PO BID 02/16/20 05:11 BASIC METABOLIC PANEL,BMP [CHEM] AM CBC WITH AUTO DIFF [HEME] AM 02/16/20 09:00 Acetaminophen [Tylenol Extra Strength] 500 mg PO DAILY Cholecalciferol (Vitamin D3) [Vitamin D3] 10 mcg PO DAILY Isosorbide Mononitrate [Imdur] 90 mg PO DAILY Multivitamins [Tab-A-Zachary] 1 tab PO DAILY SitaGLIPtin [Januvia] 25 mg PO DAILY glipiZIDE [Glucotrol XL] 2.5 mg PO DAILY polyethylene glycoL 3350 [MiraLAX] 17 gm PO DAILY 02/16/20 16:00 Isosorbide Mononitrate [Imdur] 30 mg PO DAILY@1600 02/16/20 17:00 Ubidecarenone [Coenzyme Q10] 100 mg PO QPM - Assessment/Plan Last 24 Hours: My Active Orders 02/15/20 Breakfast Heart Healthy Diet [DIET] 02/15/20 16:52 Abdomen 2V AP Flat Upright [CR] Stat 02/15/20 19:33 Patient Status [ADT] Routine Oxygen Therapy [RC] PRN VTE/DVT Education [RC] Per Unit Routine Vital Signs [RC] Q4H Docusate Sodium/Sennosides [Senna Plus] 1 tab PO BID PRN polyethylene glycoL 3350 [MiraLAX] 17 gm PO DAILY PRN Resuscitation Status Routine 02/15/20 19:39 Pulse Oximetry [RC] CONTINUOUS 02/15/20 19:45 Ondansetron [Zofran] 4 mg IVPUSH Q4H PRN 02/15/20 19:48 EKG Documentation Completion [RC] ASDIRECTED Docusate Sodium [Colace] 100 mg PO BID PRN Fluocinolone Acetonide [Fluocinolone Acetonide] 4 drop EARBOTH ASDIRECTED PRN Nitroglycerin [Nitrostat] 0.4 mg SL Q5M PRN Triamcinolone Acetonide [Triamcinolone Acetonide 0.1% Crm] 0 gm TOP BID PRN bisacodyL [Dulcolax] 5 mg PO DAILY PRN EKG 12 Lead [EK] Routine 02/15/20 20:00 Sodium Chloride 0.9% [Normal Saline] 1,000 ml IV ASDIRECTED 02/15/20 21:00 Ascorbic Acid [Vitamin C] 1,000 mg PO BEDTIME Metoprolol Succinate [Toprol XL] 100 mg PO BEDTIME Peppermint Oil Cap 1 cap PO BEDTIME Ranolazine [Ranolazine ER] 500 mg PO BID 02/16/20 05:11 BASIC METABOLIC PANEL,BMP [CHEM] AM CBC WITH AUTO DIFF [HEME] AM 02/16/20 09:00 Acetaminophen [Tylenol Extra Strength] 500 mg PO DAILY Cholecalciferol (Vitamin D3) [Vitamin D3] 10 mcg PO DAILY Isosorbide Mononitrate [Imdur] 90 mg PO DAILY Multivitamins [Tab-A-Zachary] 1 tab PO DAILY SitaGLIPtin [Januvia] 25 mg PO DAILY glipiZIDE [Glucotrol XL] 2.5 mg PO DAILY polyethylene glycoL 3350 [MiraLAX] 17 gm PO DAILY 02/16/20 16:00 Isosorbide Mononitrate [Imdur] 30 mg PO DAILY@1600 02/16/20 17:00 Ubidecarenone [Coenzyme Q10] 100 mg PO QPM
[2020-02-15] MEDS ORDERED: Polyethylene Glycol 3350 Powder 17 GM Packet PO PRN (19:33)
[2020-02-15] MEDS ORDERED: Ondansetron 4 MG/2 ML SDV IVPUSH PRN (19:45)
[2020-02-15] MEDS ORDERED: Phytonadione 5 MG in Sodium Chloride 0.9% 50 ML IV ONE (19:47)
[2020-02-15] MEDS ORDERED: Bisacodyl 5 MG Tab PO PRN (19:48)
[2020-02-15] MEDS ORDERED: FLUOCINOLONE ACETONIDE EARBOTH PRN (19:48)
[2020-02-15] MEDS ORDERED: Triamcinolone Acetonide 0.1% Crm 15 GM Tube TOP PRN (19:48)
[2020-02-15] MEDS ORDERED: Nitroglycerin 0.4 MG Tab.SL SL PRN (19:48)
[2020-02-15] MEDS ORDERED: Docusate Sodium 100 MG Cap PO PRN (19:48)
[2020-02-15] MEDS: Sodium Chloride 0.9% 1,000 ML IV SCH (20:25)
[2020-02-15] MEDS: Metoprolol Succinate 100 MG Tab.ER PO SCH (20:45)
[2020-02-15] MEDS: Ascorbic Acid 500 MG Tab PO SCH (20:53)
[2020-02-15] MEDS: RANOLAZINE 500 MG PO SCH (20:53)
[2020-02-15] MEDS ORDERED: PEPPERMINT OIL PO SCH (21:00)
[2020-02-15] MEDS ORDERED: Acetaminophen 325 MG Tab PO PRN (22:58)
[2020-02-16] MEDS ORDERED: Furosemide 20 MG/2 ML VIAL IVPUSH ONE (09:00)
[2020-02-16] MEDS ORDERED: glipiZIDE 2.5 MG Tab.ER PO SCH (09:00)
[2020-02-16] MEDS ORDERED: CHOLECALCIFEROL 10 MCG PO SCH (09:00)
[2020-02-16] MEDS: Isosorbide Mononitrate 30 MG Tab.ER PO SCH ×2 (09:41→21:10)
[2020-02-16] MEDS: Multivitamin Tab PO SCH (09:44)
[2020-02-16] MEDS: Acetaminophen 500 MG Tab PO SCH ×2 (09:44→21:11)
[2020-02-16] MEDS: Docusate Sodium 100 MG Cap PO SCH ×2 (09:45→21:10)
[2020-02-16] MEDS: glipiZIDE 5 MG Tab PO SCH (09:45)
[2020-02-16] MEDS: Polyethylene Glycol 3350 Powder 17 GM Packet PO SCH (09:52)
[2020-02-16] MEDS ORDERED: RANOLAZINE 500 MG PO SCH (10:00)
[2020-02-16] MEDS ORDERED: Warfarin Sliding Scale PO SCH (10:00)
--- NOTE | 2020-02-16 10:57 | PCM.HP.2 ---
H&P History of Present Illness - General Date of Service: 02/16/20 Admit Problem/Dx: Admission Diagnosis/Problem Admission Diagnosis/Problem acute kidney insufficiency, supratherapeutic INR, CHF exacerbation, constipation, weakness, functional decline in adult. Source of Information: Patient, EMS Notes Reviewed - History of Present Illness Initial Comments - Free Text/Narative: Divina presented to the ED last night due to constipation for past 3-5 days and dry cough. She states she has chronic chest pain, feels more short of breath, has not turned up her oxygen, which she wears at home but felt like she should. Covid was negative on admission. She also c/o nausea but no vomiting. Denies any abdominal pain, fever,chills. Her son who is his POA and is in [place] right now want her to stay in the hospital and find fci placement for her. The son said that he have a hard time looking for a fci because of the Covid pandemic. She has chronic systolic congestive heart failure, last echo 09/29/2019 showed EF of 30%, her last Cardiology appointment this summer she declined any stress testing or angiogram and had discussed hospice. They increased her Imdur to 90 mg in am and 30 mg in the afternoon and also started her on Ranolazine 500 mg bid and recently increased to 1000 mg bid but patient had not started the new dose yet per home health. On coumadin for chronic atrial fibrillation, was found to have supratherapeutic INR of 6.02 in ER, BNP 62162, elevated AST/ALT 339, 444 respectively, Creatinine 2.7 on admission, 2.6 this morning. Flat & Upright abdominal x-ray done in ER. Corrected sodium for hyperglycemia was 130 this morning. abdomen Pain Score (Numeric/FACES): 4 - Related Data Allergies/Adverse Reactions: Allergies Allergy/AdvReac Type Severity Reaction Status Date / Time Penicillins Allergy Rash Verified 02/15/20 16:43 Sulfa (Sulfonamide Allergy Rash Verified 02/15/20 16:43 Antibiotics) Home Medications: Home Meds Docusate Sodium 100 mg PO BID 03/14/19 [History] Fluocinolone Acetonide 4 drop EARBOTH ASDIRECTED PRN 03/14/19 [History] Isosorbide Mononitrate [Imdur] 90 mg PO DAILY 03/14/19 [History] Metoprolol Succinate [Toprol XL 100mg] 100 mg PO BEDTIME 03/14/19 [History] Nitroglycerin 0.4 mg SL Q5M PRN 03/14/19 [History] Peppermint Oil Cap 1 cap PO BEDTIME 03/14/19 [History] Triamcinolone Acetonide [Triamcinolone Acetonide 0.1% Crm] 1 applic TOP BID PRN 03/14/19 [History] Ubidecarenone [Coenzyme Q10] 100 mg PO BEDTIME 03/14/19 [History] Warfarin [Coumadin] 5 mg PO SUTUWETHFRSA 03/14/19 [History] lisinopriL [Zestril] 10 mg PO DAILY 03/14/19 [History] nitrofurantoin macrocrystaL [Macrodantin] 50 mg PO MOWEFR@2100 03/14/19 [History] Acetaminophen [Tylenol Extra Strength] 1,000 mg PO BEDTIME 10/26/19 [History] Cholecalciferol (Vitamin D3) [Vitamin D3] 10 mcg PO BEDTIME 10/26/19 [History] Acetaminophen [Tylenol Extra Strength] 500 mg PO DAILY tablet 10/30/19 [Rx] Ascorbic Acid [Vitamin C] 1,000 mg PO BEDTIME tablet 10/30/19 [Rx] Multivitamins [Tab-A-Zachary] 1 tab PO DAILY tablet 10/30/19 [Rx] bisacodyL [Dulcolax] 5 mg PO DAILY PRN tablet 10/30/19 [Rx] glipiZIDE [Glucotrol XL] 2.5 mg PO DAILY #30 tab.er.24 11/03/19 [Rx] Warfarin [Coumadin] 2.5 mg PO MO 12/09/19 [History] Ranolazine [Ranolazine ER] 500 mg PO BID 12/11/19 [History] Furosemide [Lasix] 20 mg PO DAILY@1400 #30 tablet 12/12/19 [Rx] Furosemide [Lasix] 60 mg PO DAILY #30 tablet 12/12/19 [Rx] SitaGLIPtin [Januvia] 25 mg PO DAILY #0 tablet 12/12/19 [Rx] polyethylene glycoL 3350 [MiraLAX] 17 gm PO DAILY #500 packet 12/12/19 [Rx] Isosorbide Mononitrate [Imdur] 30 mg PO DAILY@1600 02/15/20 [History] Ondansetron [Zofran ODT] 4 mg PO Q4H PRN #5 tab.dis 02/15/20 [Rx] Past Medical History HEENT History: Reports: Glaucoma, Macular Degeneration Cardiovascular History: Reports: Afib, Heart Failure, Hypertension, [place], Stents Respiratory History: Reports: Pneumonia, Recurrent Other Respiratory History: Is currently on O2 @ 3L/NC @ home. Gastrointestinal History: Reports: Diverticulosis Genitourinary History: Reports: None Other Genitourinary History: PT HAS STRESS INCONT. VOICED. 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: Other OB/BYN History: Musculoskeletal History: Reports: Arthritis Neurological History: Reports: Concussion, CVA, Migraines, Parkinson's, Vertigo Other Neuro History: CVA with L sided weakness Psychiatric History: Reports: Anxiety, Depression Endocrine/Metabolic History: Reports: Diabetes, Type II, Obesity/BMI 30+ Hematologic History: Reports: Anticoagulation Therapy - Infectious Disease History Infectious Disease History: Reports: Shingles - Past Surgical History HEENT Surgical History: Reports: Cataract Surgery Other HEENT Surgeries/Procedures: bilat cataract Cardiovascular Surgical History: Reports: Coronary Artery Stent Respiratory Surgical History: Reports: None GI Surgical History: Reports: Colonoscopy, Other (See Below) Other GI Surgeries/Procedures: exp lap Female Surgical History: Reports: Hysterectomy Neurological Surgical History: Reports: None Social & Family History - Family History Family Medical History: No Pertinent Family History - Tobacco Use Tobacco Use Status *Q: Current Status Unknown Second Hand Smoke Exposure: No - Caffeine Use Caffeine Use: Reports: Coffee - Recreational Drug Use Recreational Drug Use: No H&P Review of Systems - Review of Systems: Review Of Systems: See Below General: Reports: Weakness, Diaphoresis. Denies: Fever, Chills HEENT: Reports: No Symptoms, Glasses Pulmonary: Reports: Shortness of Breath, Cough. Denies: Wheezing Cardiovascular: Reports: Chest Pain, Dyspnea on Exertion, Edema Gastrointestinal: Reports: Constipation, Nausea. Denies: Abdominal Pain, Diarrhea, Vomiting Genitourinary: Reports: No Symptoms Musculoskeletal: Reports: No Symptoms Skin: Reports: No Symptoms Psychiatric: Reports: No Symptoms Neurological: Reports: No Symptoms Hematologic/Lymphatic: Reports: Easy Bleeding, Easy Bruising Exam - Exam Exam: See Below - Vital Signs Vital Signs: Last Vital Signs Temp 97.6 F 02/16/20 04:00 Pulse 67 02/16/20 04:00 Resp 18 02/16/20 04:00 BP 113/60 02/16/20 09:41 Pulse Ox 98 02/16/20 04:00 Weight: 179 lb 9 oz - Exam Quality Assessment: Supplemental Oxygen General: Alert, Oriented, Cooperative. No: Mild Distress HEENT: PERRLA, Conjunctiva Clear, Glasses, Other (Dry mucosa membranes) Neck: Supple, Trachea Midline Lungs: Normal Respiratory Effort, Decreased Breath Sounds, Crackles (bibasilar). No: Wheezing Cardiovascular: Regular Rate, Irregular Rhythm. No: Systolic Murmur GI/Abdominal Exam: Normal Bowel Sounds, Soft, Non-Tender, No Distention (Female) Exam: Deferred Rectal (Female) Exam: Deferred Extremities: Pedal Edema (1+ to bilateral knees) Peripheral Pulses: 1+: Radial (L), Radial (R) Skin: Dry, Intact, Cool Neuro Extensive - Mental Status: Alert, Oriented x3 - Patient Data Lab Results Last 24 hrs: Laboratory Results - last 24 hr 02/15/20 02/15/20 02/15/20 Range/Units 18:24 18:25 18:25 WBC 8.1 (3.0-10.3) x10-3/uL RBC 4.25 (3.60-5.20) x10(6)uL Hgb 13.3 (11.4-15.5) g/dL Hct 40.9 (34.2-48.2) % MCV 96.3 (76.7-100.5) fL MCH 31.2 (23.9-33.9) pg MCHC 32.4 (31.9-34.8) g/dL RDW 16.2 (12.3-16.5) % Plt Count 176 (151-488) x10(3)uL MPV 11.0 (7.1-12.4) fL Neut % (Auto) 61.0 (30.8-76.2) % Lymph % (Auto) 24.7 (18.4-52.1) % Ocean % (Auto) 11.3 (4.4-15.7) % Eos % (Auto) 2.2 (0.6-8.1) % Baso % (Auto) 0.8 (0.2-1.5) % Neut # (Auto) 4.9 (1.5-6.3) x10-3/uL Lymph # (Auto) 2.0 (1.0-4.4) x10-3/uL Ocean # (Auto) 0.9 (0.3-1.0) x10-3/uL Eos # (Auto) 0.2 (0.0-0.8) x10-3/uL Baso # (Auto) 0.1 (0.0-0.1) x10-3/uL Add Manual Diff Neutrophils % (Manual) (46-82) % Lymphocytes % (Manual) (13-37) % Monocytes % (Manual) (4-12) % PT 57.8 H* (9.0-11.1) sec INR 6.02 H* (1.00-1.24) Sodium (135-145) mmol/L Potassium (3.5-5.3) mmol/L Chloride (100-110) mmol/L Carbon Dioxide (21-32) mmol/L BUN (7-18) mg/dL Creatinine (0.55-1.02) mg/dL Est Cr Clr Drug Dosing mL/min Estimated GFR (MDRD) (>60) BUN/Creatinine Ratio (9-20) Glucose (80-116) mg/dL Calcium (8.6-10.2) mg/dL Total Bilirubin (0.1-1.3) mg/dL AST (5-25) IU/L ALT (12-36) U/L Alkaline Phosphatase (56-112) IU/L Troponin I (4.0-60.3) pg/mL NT-Pro-B Natriuret Pep (<=450) pg/mL Total Protein (6.0-8.0) g/dL Albumin (3.2-4.6) g/dL Globulin g/dL Albumin/Globulin Ratio SARS-CoV-2 RNA (RYLEE) Negative (NEGATIVE) 02/15/20 02/15/20 02/16/20 Range/Units 18:25 18:25 07:20 WBC 10.5 H (3.0-10.3) x10-3/uL RBC 4.50 (3.60-5.20) x10(6)uL Hgb 13.9 (11.4-15.5) g/dL Hct 43.3 (34.2-48.2) % MCV 96.2 (76.7-100.5) fL MCH 31.0 (23.9-33.9) pg MCHC 32.2 (31.9-34.8) g/dL RDW 16.3 (12.3-16.5) % Plt Count 127 L (151-488) x10(3)uL MPV 11.0 (7.1-12.4) fL Neut % (Auto) (30.8-76.2) % Lymph % (Auto) (18.4-52.1) % Ocean % (Auto) (4.4-15.7) % Eos % (Auto) (0.6-8.1) % Baso % (Auto) (0.2-1.5) % Neut # (Auto) (1.5-6.3) x10-3/uL Lymph # (Auto) (1.0-4.4) x10-3/uL Ocean # (Auto) (0.3-1.0) x10-3/uL Eos # (Auto) (0.0-0.8) x10-3/uL Baso # (Auto) (0.0-0.1) x10-3/uL Add Manual Diff Yes Neutrophils % (Manual) 74 (46-82) % Lymphocytes % (Manual) 20 (13-37) % Monocytes % (Manual) 6 (4-12) % PT (9.0-11.1) sec INR (1.00-1.24) Sodium 129 L (135-145) mmol/L Potassium 5.5 H D (3.5-5.3) mmol/L Chloride 90 L (100-110) mmol/L Carbon Dioxide 31 (21-32) mmol/L BUN 56 H D (7-18) mg/dL Creatinine 2.7 H* (0.55-1.02) mg/dL Est Cr Clr Drug Dosing 10.34 mL/min Estimated GFR (MDRD) 17 L (>60) BUN/Creatinine Ratio 20.7 H (9-20) Glucose 255 H (80-116) mg/dL Calcium 9.2 (8.6-10.2) mg/dL Total Bilirubin 1.1 (0.1-1.3) mg/dL AST 339 H* D (5-25) IU/L ALT 444 H* D (12-36) U/L Alkaline Phosphatase 44 L (56-112) IU/L Troponin I 18.3 (4.0-60.3) pg/mL NT-Pro-B Natriuret Pep 28528 H* (<=450) pg/mL Total Protein 7.4 (6.0-8.0) g/dL Albumin 3.5 (3.2-4.6) g/dL Globulin 3.9 g/dL Albumin/Globulin Ratio 0.9 SARS-CoV-2 RNA (RYLEE) (NEGATIVE) 02/16/20 Range/Units 07:20 WBC (3.0-10.3) x10-3/uL RBC (3.60-5.20) x10(6)uL Hgb (11.4-15.5) g/dL Hct (34.2-48.2) % MCV (76.7-100.5) fL MCH (23.9-33.9) pg MCHC (31.9-34.8) g/dL RDW (12.3-16.5) % Plt Count (151-488) x10(3)uL MPV (7.1-12.4) fL Neut % (Auto) (30.8-76.2) % Lymph % (Auto) (18.4-52.1) % Ocean % (Auto) (4.4-15.7) % Eos % (Auto) (0.6-8.1) % Baso % (Auto) (0.2-1.5) % Neut # (Auto) (1.5-6.3) x10-3/uL Lymph # (Auto) (1.0-4.4) x10-3/uL Ocean # (Auto) (0.3-1.0) x10-3/uL Eos # (Auto) (0.0-0.8) x10-3/uL Baso # (Auto) (0.0-0.1) x10-3/uL Add Manual Diff Neutrophils % (Manual) (46-82) % Lymphocytes % (Manual) (13-37) % Monocytes % (Manual) (4-12) % PT (9.0-11.1) sec INR (1.00-1.24) Sodium 127 L (135-145) mmol/L Potassium 5.6 H (3.5-5.3) mmol/L Chloride 91 L (100-110) mmol/L Carbon Dioxide 24 (21-32) mmol/L BUN 56 H (7-18) mg/dL Creatinine 2.6 H* (0.55-1.02) mg/dL Est Cr Clr Drug Dosing 12.91 mL/min Estimated GFR (MDRD) 17 L (>60) BUN/Creatinine Ratio 21.5 H (9-20) Glucose 241 H (80-116) mg/dL Calcium 8.4 L (8.6-10.2) mg/dL Total Bilirubin (0.1-1.3) mg/dL AST (5-25) IU/L ALT (12-36) U/L Alkaline Phosphatase (56-112) IU/L Troponin I (4.0-60.3) pg/mL NT-Pro-B Natriuret Pep (<=450) pg/mL Total Protein (6.0-8.0) g/dL Albumin (3.2-4.6) g/dL Globulin g/dL Albumin/Globulin Ratio SARS-CoV-2 RNA (RYLEE) (NEGATIVE) Result Diagrams: 02/16/20 07:20 02/16/20 07:20 Sepsis Event Note - Evaluation Sepsis Screening Result: No Definite Risk - Focused Exam Vital Signs: Vital Signs Temp Temp Pulse Resp BP BP Pulse Ox 02/16/20 09:41 113/60 02/16/20 04:00 97.6 F 67 18 106/73 98 02/15/20 23:14 97.3 F 68 18 118/88 98 *Q Meaningful Use (ADM) - VTE Risk Assess *Q Each Risk Factor Represents 1 Point: Swollen Legs, Current, Congestive heart failure (CHF) Total Score 1 Point Risk Factors: 2 Each Risk Factor Represents 3 Points: Age 75 Years or Greater Total Score 3 Point Risk Factors: 3 Each Risk Factor Represents 5 Points: None Total Score 5 Point Risk Factors: 0 - Problem List (1) Elevated brain natriuretic peptide (BNP) level SNOMED Code(s): 496622342, 989206855 ICD Code: R79.89 - OTHER SPECIFIED ABNORMAL FINDINGS OF BLOOD CHEMISTRY Status: Acute Current Visit: No Problem Details: BNP 98926, Chest x-ray, report pending but Bart B lines present and pulmonary congestion noted per my review. Lasix 20 mg IV given this morning. Daily weights. (2) Acute renal insufficiency SNOMED Code(s): 096855306 ICD Code: N28.9 - DISORDER OF KIDNEY AND URETER, UNSPECIFIED Status: Acute Current Visit: No Problem Details: Acute Cr 2.6 today, will repeat labs tomorrow, diuresis. (3) CHF exacerbation SNOMED Code(s): 558082266, 45200632026791 ICD Code: I50.9 - HEART FAILURE, UNSPECIFIED Status: Acute Current Visit: No Problem Details: EF 30% on last echo at [facility] 09/28/2017 Qualifiers: Heart failure type: systolic Qualified Code(s): I50.23 - Acute on chronic systolic (congestive) heart failure (4) Elevated INR SNOMED Code(s): 787653828 ICD Code: R79.1 - ABNORMAL COAGULATION PROFILE Status: Acute Current Visit: No Problem Details: Coumadin per pharmacy. Hold dose today, adjust as needed. Daily INR (5) Hyperkalemia SNOMED Code(s): 35390602 ICD Code: E87.5 - HYPERKALEMIA Status: Acute Current Visit: Yes Problem Details: 5.6 today, Lasix 20 mg IV this morning, repeat labs tomorrow. (6) Declining functional status SNOMED Code(s): 666747337071453 ICD Code: R53.81 - OTHER MALAISE Status: Acute Current Visit: No Problem Details: PT/OT evaluate & treat (7) Weakness SNOMED Code(s): 28423763 ICD Code: R53.1 - WEAKNESS Status: Acute Current Visit: No (8) Hyponatremia SNOMED Code(s): 09977324 ICD Code: E87.1 - HYPO-OSMOLALITY AND HYPONATREMIA Status: Acute Current Visit: No (9) Ischemic cardiomyopathy SNOMED Code(s): 064974131 ICD Code: I25.5 - ISCHEMIC CARDIOMYOPATHY Status: Chronic Current Visit: No (10) Palliative care status SNOMED Code(s): 911152113 ICD Code: Z51.5 - ENCOUNTER FOR PALLIATIVE CARE Status: Chronic Current Visit: No (11) Afib SNOMED Code(s): 59504831 ICD Code: I48.91 - UNSPECIFIED ATRIAL FIBRILLATION Status: Chronic Current Visit: No Qualifiers: Atrial fibrillation type: longstanding persistent Qualified Code(s): I48.11 - Longstanding persistent atrial fibrillation (12) Chronic systolic congestive heart failure, NYHA class 3 SNOMED Code(s): 163862457, 920589036, 988902029 ICD Code: I50.22 - CHRONIC SYSTOLIC (CONGESTIVE) HEART FAILURE Status: Chronic Current Visit: No (13) Constipation SNOMED Code(s): 47744640 ICD Code: K59.00 - CONSTIPATION, UNSPECIFIED Status: Chronic Current Visit: Yes Problem Details: acute on chronic. Had bowel movement today, bowel sounds active. 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 SNOMED Code(s): 937252853 ICD Code: I20.8 - OTHER FORMS OF ANGINA PECTORIS Status: Chronic Current Visit: Yes (16) Diabetes mellitus type 2, diet-controlled SNOMED Code(s): 773189634281818, 290689625347053 ICD Code: E11.9 - TYPE 2 DIABETES MELLITUS WITHOUT COMPLICATIONS Status: Chronic Current Visit: No Problem List Initiated/Reviewed/Updated: Yes Orders Last 24hrs: Active Orders 24 hr Category Date Time Status Patient Status [ADT] Routine ADT 02/15/20 19:33 Active Daily Weight [Height and Weight] [RC] DAILY Care 02/16/20 09:01 Active Oxygen Therapy [RC] PRN Care 02/15/20 19:33 Active Up With Assistance [RC] ASDIRECTED Care 02/16/20 09:01 Active Up to Chair [RC] ASDIRECTED Care 02/16/20 09:01 Active Vital Signs [RC] 00,04,08,12,16,20 Care 02/15/20 19:33 Active OT Evaluation and Treatment [CONS] Routine Cons 02/16/20 09:01 Active PT Evaluation and Treatment [CONS] Routine Cons 02/16/20 09:01 Active Abdomen 2V AP Flat Upright [CR] Stat Exams 02/15/20 16:52 Taken Chest 2V [CR] Routine Exams 02/16/20 08:59 Ordered COMPREHENSIVE METABOLIC PN,CMP [CHEM] Routine Lab 02/17/20 06:00 Ordered INR,PT,PROTHROMBIN TIME [COAG] DAILY Lab 02/17/20 09:50 Ordered INR,PT,PROTHROMBIN TIME [COAG] DAILY Lab 02/18/20 09:50 Ordered INR,PT,PROTHROMBIN TIME [COAG] DAILY Lab 02/19/20 09:50 Ordered INR,PT,PROTHROMBIN TIME [COAG] DAILY Lab 02/20/20 09:50 Ordered INR,PT,PROTHROMBIN TIME [COAG] Routine Lab 02/16/20 09:03 Ordered Acetaminophen [TylenoL] Med 02/15/20 22:58 Active 650 mg PO Q4H PRN Acetaminophen [Tylenol Extra Strength] Med 02/16/20 21:00 Active 1,000 mg PO BEDTIME Acetaminophen [Tylenol Extra Strength] Med 02/16/20 09:00 Active 500 mg PO DAILY Ascorbic Acid [Vitamin C] Med 02/15/20 21:00 Active 1,000 mg PO BEDTIME Cholecalciferol (Vitamin D3) [Vitamin D3] Med 02/16/20 21:00 Active 25 mcg PO BEDTIME Docusate Sodium [Colace] Med 02/16/20 10:00 Active 100 mg PO BID Docusate Sodium/Sennosides [Senna Plus] Med 02/15/20 19:33 Active 1 tab PO BID PRN Fluocinolone Acetonide [Fluocinolone Acetonide] Med 02/15/20 19:48 Hold 4 drop EARBOTH ASDIRECTED PRN Isosorbide Mononitrate [Imdur] Med 02/16/20 16:00 Active 30 mg PO DAILY@1600 Isosorbide Mononitrate [Imdur] Med 02/16/20 09:00 Active 90 mg PO DAILY Metoprolol Succinate [Toprol XL] Med 02/15/20 21:00 Active 100 mg PO BEDTIME Multivitamins [Tab-A-Zachary] Med 02/16/20 09:00 Active 1 tab PO DAILY Nitroglycerin [Nitrostat] Med 02/15/20 19:48 Active 0.4 mg SL Q5M PRN Non-Formulary Medication [NF Drug] Med 02/16/20 10:00 Active 0 each PO BID Ondansetron [Zofran] Med 02/15/20 19:45 Active 4 mg IVPUSH Q4H PRN Peppermint Oil Cap Med 02/15/20 21:00 Hold 1 cap PO BEDTIME SitaGLIPtin [Januvia] Med 02/16/20 09:00 Active 25 mg PO DAILY Sodium Chloride 0.9% [Normal Saline] 1,000 ml Med 02/15/20 20:00 Hold IV ASDIRECTED Triamcinolone Acetonide [Triamcinolone Acetonide 0.1% Med 02/15/20 19:48 Active Crm] 0 gm TOP BID PRN Ubidecarenone [Coenzyme Q10] Med 02/16/20 17:00 Active 100 mg PO QPM Warfarin Sliding Scale [Coumadin Sliding Scale] Med 02/16/20 10:00 Pending 1 each PO ASDIRECTED bisacodyL [Dulcolax] Med 02/15/20 19:48 Active 5 mg PO DAILY PRN glipiZIDE [Glucotrol] Med 02/16/20 10:00 Active 2.5 mg PO DAILY polyethylene glycoL 3350 [MiraLAX] Med 02/16/20 09:00 Active 17 gm PO DAILY polyethylene glycoL 3350 [MiraLAX] Med 02/15/20 19:33 Active 17 gm PO DAILY PRN Resuscitation Status Routine Resus Stat 02/15/20 19:33 Ordered EKG 12 Lead [EK] Routine Ther 02/15/20 19:48 Ordered Medication Orders Acetaminophen (Tylenol Extra Strength) 500 mg PO DAILY [facility] Last Admin: 02/16/20 09:44 Dose: 500 mg Documented by: RAMIRO Acetaminophen (Tylenol) 650 mg PO Q4H PRN PRN Reason: Pain Last Admin: 02/15/20 23:18 Dose: 650 mg Documented by: ELIZABETH Acetaminophen (Tylenol Extra Strength) 1,000 mg PO BEDTIME IFTIKHAR Ascorbic Acid (Vitamin C) 1,000 mg PO BEDTIME [facility] Last Admin: 02/15/20 20:53 Dose: Not Given Documented by: ELIZABETH Bisacodyl (Dulcolax) 5 mg PO DAILY PRN PRN Reason: Constipation Cholecalciferol (Vitamin D3) 25 mcg PO BEDTIME IFTIKHAR Coenzyme Q10 (Coenzyme Q10) 100 mg PO QPM IFTIKHAR Docusate Sodium (Colace) 100 mg PO BID [facility] Last Admin: 02/16/20 09:45 Dose: 100 mg Documented by: RAMIRO Glipizide (Glucotrol) 2.5 mg PO DAILY [facility] Last Admin: 02/16/20 09:45 Dose: 2.5 mg Documented by: RAMIRO Sodium Chloride (Normal Saline) 1,000 mls @ 75 mls/hr IV ASDIRECTED [facility] Last Admin: 02/15/20 20:25 Dose: 75 mls/hr Documented by: ELIZABETH Isosorbide Mononitrate (Imdur) 30 mg PO DAILY@1600 [facility] Isosorbide Mononitrate (Imdur) 90 mg PO DAILY [facility] Last Admin: 02/16/20 09:41 Dose: 90 mg Documented by: RAMIRO Metoprolol Succinate (Toprol Xl) 100 mg PO BEDTIME [facility] Last Admin: 02/15/20 20:45 Dose: 100 mg Documented by: ELIZABETH Multivitamins/Minerals/Vitamin C (Tab-A-Zachary) 1 tab PO DAILY [facility] Last Admin: 02/16/20 09:44 Dose: 1 tab Documented by: RAMIRO Nitroglycerin (Nitrostat) 0.4 mg SL Q5M PRN PRN Reason: Chest Pain Non-Formulary Medication (Fluocinolone Acetonide [Fluocinolone Acetonide]) 4 drop EARBOTH ASDIRECTED PRN PRN Reason: Dizziness Non-Formulary Medication (Peppermint Oil Cap) 1 cap PO BEDTIME [facility] Last Admin: 02/15/20 20:52 Dose: Not Given Documented by: ELIZABETH Ranolazine Er 500mg 0 each PO BID [facility] Ondansetron HCl (Zofran) 4 mg IVPUSH Q4H PRN PRN Reason: Nausea/Vomiting Polyethylene Glycol (Miralax) 17 gm PO DAILY PRN PRN Reason: Constipation Polyethylene Glycol (Miralax) 17 gm PO DAILY [facility] Last Admin: 02/16/20 09:52 Dose: 17 gm Documented by: RAMIRO Senna/Docusate Sodium (Senna Plus) 1 tab PO BID PRN PRN Reason: Constipation Sitagliptin Phosphate (Januvia) 25 mg PO DAILY [facility] Last Admin: 02/16/20 09:43 Dose: 25 mg Documented by: RAMIRO Triamcinolone Acetonide (Triamcinolone Acetonide 0.1% Crm) 0 gm TOP BID PRN PRN Reason: Rash Warfarin Sodium (Coumadin Sliding Scale) 1 each PO ASDIRECTED [facility] Assessment/Plan Comment:: 1. Admit for inpatient treatment of Acute on chronic Kidney insufficiency, CHF, constipation, weakness, function decline, parkinson's. 2. CXR per my review appears to have some mild CHF exacerabation, official report pending. Hold IVF and diuresis Lasix 20 mg IV x 1, I&Os, daily weights. Continue to monitor and adjust as needed. 3. Cardiac diet. 4. Up with assistance and to chair TID. 5. PT/OT evaluate & treat if needed. 6. Discharge planning for placement to due functional decline and family is unable to provide the additional services she needs. 7. Resume home medications. 8. DNR/DNI. - Mortality Measure Prognosis:: Poor
[2020-02-16] MEDS: RANOLAZINE 500 MG PO SCH (15:53)
[2020-02-16] MEDS ORDERED: Warfarin 2.5 MG Tab PO ONE (16:00)
[2020-02-16] MEDS ORDERED: Furosemide 40 MG/4 ML VIAL IVPUSH ONE (16:18)
[2020-02-16] MEDS: Ascorbic Acid 500 MG Tab PO SCH (21:11)
[2020-02-16] MEDS: Metoprolol Succinate 100 MG Tab.ER PO SCH (21:11)
[2020-02-16] MEDS: Cholecalciferol (Vitamin D3) 25 MCG Tab PO SCH (21:12)
[2020-02-17] MEDS ORDERED: Furosemide 40 MG/4 ML VIAL IVPUSH SCH (09:00)
[2020-02-17] MEDS: Sodium Chloride 0.9% 1,000 ML IV SCH (09:20)
[2020-02-17] MEDS: Docusate Sodium 100 MG Cap PO SCH ×2 (09:24→20:00)
[2020-02-17] MEDS: glipiZIDE 5 MG Tab PO SCH (09:24)
[2020-02-17] MEDS: Acetaminophen 500 MG Tab PO SCH ×2 (09:26→20:00)
[2020-02-17] MEDS: Multivitamin Tab PO SCH (09:27)
[2020-02-17] MEDS: Polyethylene Glycol 3350 Powder 17 GM Packet PO SCH (09:27)
[2020-02-17] MEDS: Isosorbide Mononitrate 30 MG Tab.ER PO SCH ×2 (09:28→17:08)
--- NOTE | 2020-02-17 09:32 | PCM.PN ---
- General Info Date of Service: 02/17/20 Subjective Update: Divina has been pretty lebron and lethargic in last 24 hours, daughter stated she is usually pale because she doesn't go out but as far as lebron appearance she hasn't been able to see her since last year. States her body aches all over but can't tell me if it is same as her chronic pain or different. Has been afebrile. Chest x-ray showed some CHF exacerbation, elevated LFTs which worsened today. Systolic blood pressures are between 90-110s. No abdominal pain. Covid was negative but was not tested for influenza on admission. - Patient Data Vitals - Most Recent: Last Vital Signs Temp 97.4 F 02/17/20 08:00 Pulse 64 02/17/20 08:00 Resp 24 H 02/17/20 08:00 BP 105/60 02/17/20 08:00 Pulse Ox 100 02/17/20 08:00 Weight - Most Recent: 179 lb 9 oz Lab Results Last 24 Hours: Laboratory Results - last 24 hr 02/16/20 02/17/20 02/17/20 Range/Units 12:12 06:35 06:35 PT 23.0 H 17.3 H (9.0-11.1) sec INR 2.25 H 1.65 H (1.00-1.24) Sodium 128 L (135-145) mmol/L Potassium 4.9 (3.5-5.3) mmol/L Chloride 92 L (100-110) mmol/L Carbon Dioxide 26 (21-32) mmol/L BUN 57 H (7-18) mg/dL Creatinine 2.4 H* (0.55-1.02) mg/dL Est Cr Clr Drug Dosing 13.99 mL/min Estimated GFR (MDRD) 19 L (>60) BUN/Creatinine Ratio 23.8 H (9-20) Glucose 177 H (80-116) mg/dL Calcium 8.2 L (8.6-10.2) mg/dL Total Bilirubin 1.4 H (0.1-1.3) mg/dL AST 473 H* D (5-25) IU/L ALT 653 H* D (12-36) U/L Alkaline Phosphatase 46 L (56-112) IU/L Total Protein 6.3 (6.0-8.0) g/dL Albumin 3.1 L (3.2-4.6) g/dL Globulin 3.2 g/dL Albumin/Globulin Ratio 1.0 Med Orders - Current: Current Medications Acetaminophen (Tylenol Extra Strength) 500 mg PO DAILY [facility] Last Admin: 02/16/20 09:44 Dose: 500 mg Documented by: Acetaminophen (Tylenol) 650 mg PO Q4H PRN PRN Reason: Pain Last Admin: 02/15/20 23:18 Dose: 650 mg Documented by: Acetaminophen (Tylenol Extra Strength) 1,000 mg PO BEDTIME [facility] Last Admin: 02/16/20 21:11 Dose: 1,000 mg Documented by: Ascorbic Acid (Vitamin C) 1,000 mg PO BEDTIME [facility] Last Admin: 02/16/20 21:11 Dose: 1,000 mg Documented by: Bisacodyl (Dulcolax) 5 mg PO DAILY PRN PRN Reason: Constipation Cholecalciferol (Vitamin D3) 25 mcg PO BEDTIME [facility] Last Admin: 02/16/20 21:12 Dose: 25 mcg Documented by: Coenzyme Q10 (Coenzyme Q10) 100 mg PO QPM [facility] Last Admin: 02/16/20 17:01 Dose: 100 mg Documented by: Docusate Sodium (Colace) 100 mg PO BID [facility] Last Admin: 02/16/20 21:10 Dose: 100 mg Documented by: Furosemide (Lasix) 20 mg PO DAILY@1400 [facility] Furosemide (Lasix) 60 mg PO DAILY [facility] Glipizide (Glucotrol) 2.5 mg PO DAILY [facility] Last Admin: 02/16/20 09:45 Dose: 2.5 mg Documented by: Sodium Chloride (Normal Saline) 1,000 mls @ 50 mls/hr IV ASDIRECTED [facility] Last Admin: 02/17/20 09:20 Dose: 50 mls/hr Documented by: Isosorbide Mononitrate (Imdur) 30 mg PO DAILY@1600 [facility] Last Admin: 02/16/20 21:10 Dose: 30 mg Documented by: Isosorbide Mononitrate (Imdur) 90 mg PO DAILY [facility] Last Admin: 02/16/20 09:41 Dose: 90 mg Documented by: Metoprolol Succinate (Toprol Xl) 100 mg PO BEDTIME [facility] Last Admin: 02/16/20 21:11 Dose: 100 mg Documented by: Multivitamins/Minerals/Vitamin C (Tab-A-Zachary) 1 tab PO DAILY [facility] Last Admin: 02/16/20 09:44 Dose: 1 tab Documented by: Nitroglycerin (Nitrostat) 0.4 mg SL Q5M PRN PRN Reason: Chest Pain Non-Formulary Medication (Fluocinolone Acetonide [Fluocinolone Acetonide]) 4 drop EARBOTH ASDIRECTED PRN PRN Reason: Dizziness Non-Formulary Medication (Peppermint Oil Cap) 1 cap PO BEDTIME [facility] Last Admin: 02/15/20 20:52 Dose: Not Given Documented by: Ondansetron HCl (Zofran) 4 mg IVPUSH Q4H PRN PRN Reason: Nausea/Vomiting Polyethylene Glycol (Miralax) 17 gm PO DAILY PRN PRN Reason: Constipation Polyethylene Glycol (Miralax) 17 gm PO DAILY [facility] Last Admin: 02/16/20 09:52 Dose: 17 gm Documented by: Ranolazine (Ranexa) 1,000 mg PO BID [facility] Last Admin: 02/16/20 21:10 Dose: 1,000 mg Documented by: Senna/Docusate Sodium (Senna Plus) 1 tab PO BID PRN PRN Reason: Constipation Sitagliptin Phosphate (Januvia) 25 mg PO DAILY [facility] Last Admin: 02/16/20 09:43 Dose: 25 mg Documented by: Triamcinolone Acetonide (Triamcinolone Acetonide 0.1% Crm) 0 gm TOP BID PRN PRN Reason: Rash Warfarin Sodium (Coumadin Sliding Scale) 1 each PO ASDIRECTED [facility] Warfarin Sodium (Coumadin) 4 mg PO ONETIME ONE Stop: 02/17/20 16:01 Discontinued Medications Docusate Sodium (Colace) 100 mg PO BID PRN PRN Reason: Constipation Furosemide (Lasix) 20 mg IVPUSH ONETIME ONE Stop: 02/16/20 09:01 Last Admin: 02/16/20 09:43 Dose: 20 mg Documented by: Furosemide (Lasix) 40 mg IVPUSH DAILY [facility] Furosemide (Lasix) 40 mg IVPUSH NOW ONE Stop: 02/16/20 16:19 Last Admin: 02/16/20 16:56 Dose: 40 mg Documented by: Phytonadione 5 mg/ Sodium (Chloride) 50.5 mls @ 100 mls/hr IV NOW ONE Stop: 02/15/20 20:17 Last Admin: 02/15/20 20:38 Dose: 100 mls/hr Documented by: Non-Formulary Medication (Ranolazine [Ranolazine Er]) 500 mg PO BID [facility] Last Admin: 02/16/20 15:53 Dose: Not Given Documented by: Ranolazine Er 500mg 0 each PO BID [facility] Last Admin: 02/16/20 13:31 Dose: 2 each Documented by: Warfarin Sodium (Coumadin) 2.5 mg PO ONETIME ONE Stop: 02/16/20 16:01 Last Admin: 02/16/20 16:48 Dose: 2.5 mg Documented by: - Exam Quality Assessment: Supplemental Oxygen General: Alert, Oriented, Cooperative, Lethargic Lungs: Decreased Breath Sounds (mild increased work of breathing). No: Wheezing Cardiovascular: Regular Rate, Irregular Rhythm GI/Abdominal Exam: Soft, Non-Tender, Abnormal Bowel Sounds (hypoactive.) Peripheral Pulses: 1+: Radial (L), Radial (R) Sepsis Event Note - Evaluation Sepsis Screening Result: No Definite Risk - Focused Exam Vital Signs: Vital Signs Temp Pulse Resp BP Pulse Ox 02/17/20 08:00 97.4 F 64 24 H 105/60 100 02/17/20 04:00 97.6 F 87 17 92/57 L 99 02/17/20 00:00 97.3 F 67 19 100/65 100 - Problem List & Annotations (1) LFT elevation SNOMED Code(s): 223773033, 527042432 Code(s): R79.89 - OTHER SPECIFIED ABNORMAL FINDINGS OF BLOOD CHEMISTRY Status: Acute Current Visit: Yes Annotation/Comment:: AST 473, ALT 653, Total bilirubin 1.4, will get CT abdomen/pelvis, most likely secondary to CHF but will rule out other causes. (2) Elevated brain natriuretic peptide (BNP) level SNOMED Code(s): 607371614, 086156231 Code(s): R79.89 - OTHER SPECIFIED ABNORMAL FINDINGS OF BLOOD CHEMISTRY Status: Acute Current Visit: No Annotation/Comment:: had around 300 ml out per nursing yesterday, increased after lasix given x 2. LFTs are going up today. Discussed with daughter she may need to go on hospice due to her heart failure. (3) Acute renal insufficiency SNOMED Code(s): 448618383 Code(s): N28.9 - DISORDER OF KIDNEY AND URETER, UNSPECIFIED Status: Acute Current Visit: No Annotation/Comment:: Acute Cr 2.4 improved today, will repeat labs tomorrow, sodium is 128. Start NS at 50 ml/hr and restart her home dose of Lasix this afternoon. As discussed with her daughter yesterday, fine balance between overloading her heart with fluids and giving her kidneys enough water to function. LFTs are also elevating, most likely due to worsening CHF. (4) CHF exacerbation SNOMED Code(s): 921832093, 53022081078771 Code(s): I50.9 - HEART FAILURE, UNSPECIFIED Status: Acute Current Visit: No Qualifiers: Heart failure type: systolic Qualified Code(s): I50.23 - Acute on chronic systolic (congestive) heart failure Annotation/Comment:: Will get CT Chest today to get better picture of her lungs, worsening shortness of breath, lethargy. Also get influenza test as that can present with CHF complications since she is complaining of all over body aches. Covid was negative on admission. EF 30% on last echo at [facility] 09/28/2017 (5) Declining functional status SNOMED Code(s): 066831370331788 Code(s): R53.81 - OTHER MALAISE Status: Acute Current Visit: No Annotation/Comment:: PT/OT evaluate & treat (6) Weakness SNOMED Code(s): 10103563 Code(s): R53.1 - WEAKNESS Status: Acute Current Visit: No (7) Hyponatremia SNOMED Code(s): 56269804 Code(s): E87.1 - HYPO-OSMOLALITY AND HYPONATREMIA Status: Acute Current Visit: No Annotation/Comment:: NS at 50 ml/hr, recheck tomorrow, if unable to give fluids, would need to give sodium tablets. (8) Ischemic cardiomyopathy SNOMED Code(s): 074383600 Code(s): I25.5 - ISCHEMIC CARDIOMYOPATHY Status: Chronic Current Visit: No (9) Palliative care status SNOMED Code(s): 677512365 Code(s): Z51.5 - ENCOUNTER FOR PALLIATIVE CARE Status: Chronic Current Visit: No (10) Afib SNOMED Code(s): 50601958 Code(s): I48.91 - UNSPECIFIED ATRIAL FIBRILLATION Status: Chronic Current Visit: No Qualifiers: Atrial fibrillation type: longstanding persistent Qualified Code(s): I48.11 - Longstanding persistent atrial fibrillation (11) Chronic systolic congestive heart failure, NYHA class 3 SNOMED Code(s): 601871094, 637849767, 005985218 Code(s): I50.22 - CHRONIC SYSTOLIC (CONGESTIVE) HEART FAILURE Status: Chronic Current Visit: No (12) Constipation SNOMED Code(s): 17669001 Code(s): K59.00 - CONSTIPATION, UNSPECIFIED Status: Chronic Current Visit: Yes Annotation/Comment:: acute on chronic. Had bowel movement today, bowel sounds active. (13) Parkinson disease SNOMED Code(s): 15577151 Code(s): G20 - PARKINSON'S DISEASE Status: Chronic Current Visit: No (14) Chronic stable angina SNOMED Code(s): 627027861 Code(s): I20.8 - OTHER FORMS OF ANGINA PECTORIS Status: Chronic Current Visit: Yes (15) Diabetes mellitus type 2, diet-controlled SNOMED Code(s): 498583923303347, 416195752958051 Code(s): E11.9 - TYPE 2 DIABETES MELLITUS WITHOUT COMPLICATIONS Status: Chronic Current Visit: No (16) Hyperkalemia SNOMED Code(s): 06072007 Code(s): E87.5 - HYPERKALEMIA Status: Resolved Current Visit: Yes Annotation/Comment:: 4.9 today. (17) Elevated INR SNOMED Code(s): 099809390 Code(s): R79.1 - ABNORMAL COAGULATION PROFILE Status: Resolved Current Visit: No Annotation/Comment:: Resolved, INR 1.65 today, Warfarin sliding scale per pharmacy. Daily INR - Problem List Review Problem List Initiated/Reviewed/Updated: Yes - My Orders Last 24 Hours: My Active Orders 02/16/20 08:59 Chest 2V [CR] Routine 02/16/20 09:01 Daily Weight [Height and Weight] [RC] DAILY Up With Assistance [RC] ASDIRECTED Up to Chair [RC] ASDIRECTED OT Evaluation and Treatment [CONS] Routine PT Evaluation and Treatment [CONS] Routine 02/16/20 10:00 Docusate Sodium [Colace] 100 mg PO BID Warfarin Sliding Scale [Coumadin Sliding Scale] 1 each PO ASDIRECTED glipiZIDE [Glucotrol] 2.5 mg PO DAILY 02/16/20 21:00 Acetaminophen [Tylenol Extra Strength] 1,000 mg PO BEDTIME Ranolazine [Ranexa] 1,000 mg PO BID 02/17/20 06:35 CBC WITH AUTO DIFF [HEME] Routine 02/17/20 08:55 Chest Abdomen Pelvis wo Cont [CT] Routine 02/17/20 14:00 Furosemide [Lasix] 20 mg PO DAILY@1400 02/17/20 16:00 Warfarin [Coumadin] 4 mg PO ONETIME ONE 02/18/20 06:00 BASIC METABOLIC PANEL,BMP [CHEM] Routine 02/18/20 09:00 Furosemide [Lasix] 60 mg PO DAILY 02/18/20 09:50 INR,PT,PROTHROMBIN TIME [COAG] DAILY 02/19/20 09:50 INR,PT,PROTHROMBIN TIME [COAG] DAILY 02/20/20 09:50 INR,PT,PROTHROMBIN TIME [COAG] DAILY - Plan Plan:: 1. CHF: CT Chest, influenza screen, restart home Lasix. Repeat labs in am. 2. TIERRA: NS at 50 ml/hr, improved with diuresis yesterday but sodium 128. Repeat labs tomorrow. 3. LFTs: CT Abdomen/pelvis without contrast. 4. Will notify family once studies get back, adjust treatments as necessary.
[2020-02-17] MEDS ORDERED: Furosemide 20 MG Tab PO SCH (14:00)
[2020-02-17] MEDS ORDERED: Warfarin 4 MG Tab PO ONE (16:00)
[2020-02-17] MEDS ORDERED: Warfarin 2 MG Tab PO ONE (16:45)
[2020-02-17] MEDS: Cholecalciferol (Vitamin D3) 25 MCG Tab PO SCH (20:00)
[2020-02-17] MEDS: Ascorbic Acid 500 MG Tab PO SCH (20:00)
[2020-02-17] MEDS: Metoprolol Succinate 100 MG Tab.ER PO SCH (20:00)
[2020-02-18] MEDS ORDERED: Furosemide 20 MG Tab PO SCH (09:00)
[2020-02-18] MEDS: glipiZIDE 5 MG Tab PO SCH (09:39)
--- NOTE | 2020-02-18 09:39 | PCM.PN ---
- General Info Date of Service: 02/18/20 Subjective Update: Divina has been stable overnight, they stopped IV fluids at 2am due to increased crackles in lungs. Blood pressures are the same as yesterday. No complaint of pain this morning. She ate part of her breakfast this morning and is asking for water. No bowel movement reported overnight. Placed munoz yesterday for more strict I&Os to monitor her output. CT chest/abdomen/pelvis showed pulmonary edema, small pleural effusions, no consolidations or infiltrates, ascites, abdominal wall edema. Face more puffy today. Functional Status: Reports: Tolerating Diet, Urinating - Patient Data Vitals - Most Recent: Last Vital Signs Temp 97.2 F 02/18/20 08:00 Pulse 72 02/18/20 08:00 Resp 16 02/18/20 08:00 BP 93/63 02/18/20 08:00 Pulse Ox 100 02/18/20 08:00 Weight - Most Recent: 108 lb 6.4 oz I&O - Last 24 Hours: Intake & Output 02/17/20 02/18/20 02/18/20 22:59 06:59 14:59 Intake Total 345 440 Output Total 200 200 Balance 145 240 Lab Results Last 24 Hours: Laboratory Results - last 24 hr 02/18/20 02/18/20 Range/Units 06:25 06:25 PT 16.1 H (9.0-11.1) sec INR 1.53 H (1.00-1.24) Sodium 128 L (135-145) mmol/L Potassium 4.9 (3.5-5.3) mmol/L Chloride 92 L (100-110) mmol/L Carbon Dioxide 24 (21-32) mmol/L BUN 52 H (7-18) mg/dL Creatinine 2.1 H* (0.55-1.02) mg/dL Est Cr Clr Drug Dosing 14.37 mL/min Estimated GFR (MDRD) 22 L (>60) BUN/Creatinine Ratio 24.8 H (9-20) Glucose 197 H (80-116) mg/dL Calcium 8.3 L (8.6-10.2) mg/dL Quoc Results Last 24 Hours: Microbiology 02/17/20 11:50 Influenza Type A Antigen Screen - Final Nasopharyngeal Swab - Nare, Unspecified NEGATIVE INFLUENZA A VIRUS AG REFERENCE RANGE: NEGATIVE Influenza Type B Antigen Screen - Final NEGATIVE INFLUENZA B VIRUS AG REFERENCE RANGE: NEGATIVE Med Orders - Current: Current Medications Acetaminophen (Tylenol Extra Strength) 500 mg PO DAILY [facility] Last Admin: 02/17/20 09:26 Dose: 500 mg Documented by: Acetaminophen (Tylenol) 650 mg PO Q4H PRN PRN Reason: Pain Last Admin: 02/15/20 23:18 Dose: 650 mg Documented by: Acetaminophen (Tylenol Extra Strength) 1,000 mg PO BEDTIME [facility] Last Admin: 02/17/20 20:00 Dose: 1,000 mg Documented by: Ascorbic Acid (Vitamin C) 1,000 mg PO BEDTIME [facility] Last Admin: 02/17/20 20:00 Dose: 1,000 mg Documented by: Bisacodyl (Dulcolax) 5 mg PO DAILY PRN PRN Reason: Constipation Cholecalciferol (Vitamin D3) 25 mcg PO BEDTIME [facility] Last Admin: 02/17/20 20:00 Dose: 25 mcg Documented by: Coenzyme Q10 (Coenzyme Q10) 100 mg PO QPM [facility] Last Admin: 02/17/20 17:08 Dose: 100 mg Documented by: Docusate Sodium (Colace) 100 mg PO BID [facility] Last Admin: 02/17/20 20:00 Dose: 100 mg Documented by: Furosemide (Lasix) 20 mg PO DAILY@1400 [facility] Last Admin: 02/17/20 15:03 Dose: 20 mg Documented by: Furosemide (Lasix) 60 mg PO DAILY [facility] Glipizide (Glucotrol) 2.5 mg PO DAILY [facility] Last Admin: 02/17/20 09:24 Dose: 2.5 mg Documented by: Isosorbide Mononitrate (Imdur) 30 mg PO DAILY@1600 [facility] Last Admin: 02/17/20 17:08 Dose: 30 mg Documented by: Isosorbide Mononitrate (Imdur) 60 mg PO DAILY [facility] Metoprolol Succinate (Toprol Xl) 100 mg PO BEDTIME [facility] Last Admin: 02/17/20 20:00 Dose: 100 mg Documented by: Multivitamins/Minerals/Vitamin C (Tab-A-Zachary) 1 tab PO DAILY [facility] Last Admin: 02/17/20 09:27 Dose: 1 tab Documented by: Nitroglycerin (Nitrostat) 0.4 mg SL Q5M PRN PRN Reason: Chest Pain Non-Formulary Medication (Fluocinolone Acetonide [Fluocinolone Acetonide]) 4 drop EARBOTH ASDIRECTED PRN PRN Reason: Dizziness Non-Formulary Medication (Peppermint Oil Cap) 1 cap PO BEDTIME [facility] Last Admin: 02/15/20 20:52 Dose: Not Given Documented by: Ondansetron HCl (Zofran) 4 mg IVPUSH Q4H PRN PRN Reason: Nausea/Vomiting Polyethylene Glycol (Miralax) 17 gm PO DAILY PRN PRN Reason: Constipation Polyethylene Glycol (Miralax) 17 gm PO DAILY [facility] Last Admin: 02/17/20 09:27 Dose: 17 gm Documented by: Ranolazine (Ranexa) 1,000 mg PO BID [facility] Last Admin: 02/17/20 20:00 Dose: 1,000 mg Documented by: Senna/Docusate Sodium (Senna Plus) 1 tab PO BID PRN PRN Reason: Constipation Sitagliptin Phosphate (Januvia) 25 mg PO DAILY [facility] Last Admin: 02/17/20 09:26 Dose: 25 mg Documented by: Triamcinolone Acetonide (Triamcinolone Acetonide 0.1% Crm) 0 gm TOP BID PRN PRN Reason: Rash Warfarin Sodium (Coumadin Sliding Scale) 1 each PO ASDIRECTED [facility] Warfarin Sodium (Coumadin) 6 mg PO ONETIME ONE Stop: 02/18/20 16:01 Discontinued Medications Docusate Sodium (Colace) 100 mg PO BID PRN PRN Reason: Constipation Furosemide (Lasix) 20 mg IVPUSH ONETIME ONE Stop: 02/16/20 09:01 Last Admin: 02/16/20 09:43 Dose: 20 mg Documented by: Furosemide (Lasix) 40 mg IVPUSH DAILY [facility] Furosemide (Lasix) 40 mg IVPUSH NOW ONE Stop: 02/16/20 16:19 Last Admin: 02/16/20 16:56 Dose: 40 mg Documented by: Sodium Chloride (Normal Saline) 1,000 mls @ 50 mls/hr IV ASDIRECTED [facility] Last Admin: 02/17/20 09:20 Dose: 50 mls/hr Documented by: Phytonadione 5 mg/ Sodium (Chloride) 50.5 mls @ 100 mls/hr IV NOW ONE Stop: 02/15/20 20:17 Last Admin: 02/15/20 20:38 Dose: 100 mls/hr Documented by: Isosorbide Mononitrate (Imdur) 90 mg PO DAILY [facility] Last Admin: 02/17/20 09:28 Dose: Not Given Documented by: Non-Formulary Medication (Ranolazine [Ranolazine Er]) 500 mg PO BID [facility] Last Admin: 02/16/20 15:53 Dose: Not Given Documented by: Ranolazine Er 500mg 0 each PO BID [facility] Last Admin: 02/16/20 13:31 Dose: 2 each Documented by: Warfarin Sodium (Coumadin) 2.5 mg PO ONETIME ONE Stop: 02/16/20 16:01 Last Admin: 02/16/20 16:48 Dose: 2.5 mg Documented by: Warfarin Sodium (Coumadin) 4 mg PO ONETIME ONE Stop: 02/17/20 16:01 Last Admin: 02/17/20 16:55 Dose: Not Given Documented by: Warfarin Sodium (Coumadin) 4 mg PO ONETIME ONE Stop: 02/17/20 16:46 Last Admin: 02/17/20 17:09 Dose: 4 mg Documented by: - Exam Quality Assessment: Supplemental Oxygen General: Alert, Oriented, Cooperative, No Acute Distress Lungs: Normal Respiratory Effort, Decreased Breath Sounds, Crackles (throughout). No: Wheezing Cardiovascular: Regular Rate, Irregular Rhythm. No: Murmurs GI/Abdominal Exam: Normal Bowel Sounds, Soft, Non-Tender, No Distention Sepsis Event Note - Evaluation Sepsis Screening Result: No Definite Risk - Focused Exam Vital Signs: Vital Signs Temp Temp Pulse Resp BP Pulse Ox 02/18/20 08:00 97.2 F 72 16 93/63 100 02/18/20 04:30 97.6 F 66 20 121/77 99 02/18/20 00:00 96 F L 67 20 120/74 99 - Problem List & Annotations (1) LFT elevation SNOMED Code(s): 916945341, 675252302 Code(s): R79.89 - OTHER SPECIFIED ABNORMAL FINDINGS OF BLOOD CHEMISTRY Status: Acute Current Visit: Yes Annotation/Comment:: Not repeated today, CT showed ascites, abdominal wall edema, pulmonary edema with pleural effusions all secondary to CHF. (2) Elevated brain natriuretic peptide (BNP) level SNOMED Code(s): 286892849, 801087084 Code(s): R79.89 - OTHER SPECIFIED ABNORMAL FINDINGS OF BLOOD CHEMISTRY Status: Acute Current Visit: No Annotation/Comment:: Munoz placed yesterday for more accurate output. Stopped IV fluids overnight due to increased crackles. Lasix 60 mg daily for this morning and 20 mg this afternoon, will monitor throughout day her response, and adjust as necessary. (3) Acute renal insufficiency SNOMED Code(s): 657804815 Code(s): N28.9 - DISORDER OF KIDNEY AND URETER, UNSPECIFIED Status: Acute Current Visit: No Annotation/Comment:: Cr 2.1, sodiums same. Lasix 60 mg daily and 20 mg in afternoon. She is eating and drinking so will continue to monitor her I&Os and adjust accordingly. IV fluids stopped overnight to worsening fluid overload. (4) CHF exacerbation SNOMED Code(s): 741613787, 42695942662897 Code(s): I50.9 - HEART FAILURE, UNSPECIFIED Status: Acute Current Visit: No Qualifiers: Heart failure type: systolic Qualified Code(s): I50.23 - Acute on chronic systolic (congestive) heart failure Annotation/Comment:: Influenza negative. CT chest/abdomen/pelvis showed CHF with pulmonary edema, small pleural effusion, ascites and abdominal wall edema. Covid was negative on admission. EF 30% on last echo at [place] 09/28/2017, family wanted echo repeated, would order tomorrow as tech comes on Wednesday. (5) Declining functional status SNOMED Code(s): 114215358543546 Code(s): R53.81 - OTHER MALAISE Status: Acute Current Visit: No Annotation/Comment:: PT/OT evaluate & treat (6) Weakness SNOMED Code(s): 04404629 Code(s): R53.1 - WEAKNESS Status: Acute Current Visit: No (7) Hyponatremia SNOMED Code(s): 87062807 Code(s): E87.1 - HYPO-OSMOLALITY AND HYPONATREMIA Status: Acute Current Visit: No Annotation/Comment:: Stable. Recheck tomorrow. (8) Ischemic cardiomyopathy SNOMED Code(s): 483520159 Code(s): I25.5 - ISCHEMIC CARDIOMYOPATHY Status: Chronic Current Visit: No (9) Palliative care status SNOMED Code(s): 891571367 Code(s): Z51.5 - ENCOUNTER FOR PALLIATIVE CARE Status: Chronic Current Visit: No (10) Afib SNOMED Code(s): 87607705 Code(s): I48.91 - UNSPECIFIED ATRIAL FIBRILLATION Status: Chronic Current Visit: No Qualifiers: Atrial fibrillation type: longstanding persistent Qualified Code(s): I48.11 - Longstanding persistent atrial fibrillation Annotation/Comment:: INR 1.53, Coumadin per pharmacy, had received Vitamin K on admission. Coumadin dose yesterday was 4 mg. (11) Chronic systolic congestive heart failure, NYHA class 3 SNOMED Code(s): 362555676, 758548131, 385328003 Code(s): I50.22 - CHRONIC SYSTOLIC (CONGESTIVE) HEART FAILURE Status: Chronic Current Visit: No (12) Constipation SNOMED Code(s): 85955042 Code(s): K59.00 - CONSTIPATION, UNSPECIFIED Status: Chronic Current Visit: Yes Annotation/Comment:: acute on chronic. Had bowel movement today, bowel sounds active. (13) Parkinson disease SNOMED Code(s): 02608573 Code(s): G20 - PARKINSON'S DISEASE Status: Chronic Current Visit: No (14) Chronic stable angina SNOMED Code(s): 877727714 Code(s): I20.8 - OTHER FORMS OF ANGINA PECTORIS Status: Chronic Current Visit: Yes (15) Diabetes mellitus type 2, diet-controlled SNOMED Code(s): 482461880346871, 210966672869593 Code(s): E11.9 - TYPE 2 DIABETES MELLITUS WITHOUT COMPLICATIONS Status: C hronic Current Visit: No (16) Hyperkalemia SNOMED Code(s): 26666253 Code(s): E87.5 - HYPERKALEMIA Status: Resolved Current Visit: Yes (17) Elevated INR SNOMED Code(s): 708181177 Code(s): R79.1 - ABNORMAL COAGULATION PROFILE Status: Resolved Current Visit: No Annotation/Comment:: - Problem List Review Problem List Initiated/Reviewed/Updated: Yes - My Orders Last 24 Hours: My Active Orders 02/17/20 08:55 Chest Abdomen Pelvis wo Cont [CT] Routine 02/17/20 14:00 Furosemide [Lasix] 20 mg PO DAILY@1400 02/17/20 14:35 Urinary Catheter Assessment [RC] QSHIFT 12/06/20 08:50 Convert IV to Peripheral Lock [Convert IV to Saline Lock] [OM.PC] Routine 02/18/20 09:00 Furosemide [Lasix] 60 mg PO DAILY Isosorbide Mononitrate [Imdur] 60 mg PO DAILY 02/18/20 14:45 Insert Munoz Catheter [Insert Urinary Catheter] [OM.PC] Q24H 02/18/20 16:00 Warfarin [Coumadin] 6 mg PO ONETIME ONE 02/19/20 06:00 BASIC METABOLIC PANEL,BMP [CHEM] Routine 02/19/20 09:50 INR,PT,PROTHROMBIN TIME [COAG] DAILY 02/20/20 09:50 INR,PT,PROTHROMBIN TIME [COAG] DAILY - Plan Plan:: 1. CHF: Lasix 60 mg in am and 20 mg in afternoon. Influenza negative. CT as above. 2. TIERRA: Improved to 2.1. Drinking, no fluid restrictions at this time. Continue to diuresis for her CHF. 3. LFTs: ascites and abdominal wall edema secondary to CHF. 4. Discussed with family her condition after CT results came back yesterday showing heart failure, they want to continue treating her heart failure and try to correct her kidney function. Discussed hospice care/end of life care. They may have family that would come to stay with her so she could have family visit her at her apartment and go home with hospice vs changing her to comfort measures here, moving her to swing bed until a custodial bed opened up for end of life care. Did advised that if she is made comfort measures/end of life care that only one person may come in and rest of family would have to visit through window, phone or video call per infection control policy during pandemic. Reiterated that was not imminent and family did not all have to come home at this point, may take days to weeks. Also advised that if she would have a heart attack we may not have any warning to let them know in time to see her. Will keep them posted as to her condition and if feel she would not make it in next 24 hours would have one family member of their choosing come in to sit with her but stressed that only 1 family member may come in period, NOT multiple people one at a time.
[2020-02-18] MEDS: Multivitamin Tab PO SCH (09:40)
[2020-02-18] MEDS: Docusate Sodium 100 MG Cap PO SCH ×2 (09:40→20:06)
[2020-02-18] MEDS: Polyethylene Glycol 3350 Powder 17 GM Packet PO SCH (09:40)
[2020-02-18] MEDS: Acetaminophen 500 MG Tab PO SCH ×2 (09:40→20:05)
[2020-02-18] MEDS: Isosorbide Mononitrate 30 MG Tab.ER PO SCH ×2 (12:15→20:04)
[2020-02-18] MEDS: Furosemide 20 MG/2 ML VIAL IVPUSH SCH (14:22)
[2020-02-18] MEDS ORDERED: Warfarin 2 MG Tab PO ONE (16:00)
[2020-02-18] MEDS ORDERED: Warfarin 5 MG Tab ONE (16:49)
[2020-02-18] MEDS ORDERED: Furosemide 40 MG/4 ML VIAL IVPUSH ONE (16:52)
[2020-02-18] MEDS: Cholecalciferol (Vitamin D3) 25 MCG Tab PO SCH (20:05)
[2020-02-18] MEDS: Ascorbic Acid 500 MG Tab PO SCH (20:05)
[2020-02-18] MEDS: Metoprolol Succinate 100 MG Tab.ER PO SCH (20:05)
[2020-02-19] MEDS ORDERED: Furosemide 40 MG/4 ML VIAL IVPUSH SCH (09:00)
[2020-02-19] MEDS: Polyethylene Glycol 3350 Powder 17 GM Packet PO SCH (09:02)
[2020-02-19] MEDS: Isosorbide Mononitrate 30 MG Tab.ER PO SCH ×2 (09:04→16:13)
[2020-02-19] MEDS: Multivitamin Tab PO SCH (09:04)
[2020-02-19] MEDS: glipiZIDE 5 MG Tab PO SCH (09:06)
[2020-02-19] MEDS: Sodium Chloride 0.9% 10 ML Syringe FLUSH PRN ×2 (09:08→14:25)
[2020-02-19] MEDS: Acetaminophen 500 MG Tab PO SCH ×3 (09:16→21:42)
--- NOTE | 2020-02-19 09:16 | PCM.PN ---
- General Info Date of Service: 02/19/20 Subjective Update: Divina is sitting up this morning, states wants to get out of here. Wants some water. Had 950 ml oral yesterday and 485 ml output yesterday even with Lasix. Her lungs sounds have improved overnight per nursing. Muniz was placed over the weekend to monitor her output closely. Family initially wanted to take home to start hospice care but when Nellie Min, Discharge planning management it specialist went over all the cares they didn't think they would be able to do them. [place] [facility] been sent as [facility] is not taking any new patients at this time. Blood pressures are stable. - Patient Data Vitals - Most Recent: Last Vital Signs Temp 96.5 F L 02/19/20 04:30 Pulse 66 02/19/20 04:30 Resp 16 02/19/20 04:30 BP 114/70 02/19/20 09:04 Pulse Ox 100 02/19/20 04:30 Weight - Most Recent: 181 lb I&O - Last 24 Hours: Intake & Output 02/18/20 02/19/20 02/19/20 22:59 06:59 14:59 Intake Total 250 200 30 Output Total 210 150 Balance 40 50 30 Lab Results Last 24 Hours: Laboratory Results - last 24 hr 02/19/20 02/19/20 Range/Units 06:30 06:30 PT 21.5 H (9.0-11.1) sec INR 2.09 H (1.00-1.24) Sodium 130 L (135-145) mmol/L Potassium 5.1 (3.5-5.3) mmol/L Chloride 92 L (100-110) mmol/L Carbon Dioxide 25 (21-32) mmol/L BUN 59 H (7-18) mg/dL Creatinine 2.7 H* (0.55-1.02) mg/dL Est Cr Clr Drug Dosing 12.44 mL/min Estimated GFR (MDRD) 17 L (>60) BUN/Creatinine Ratio 21.9 H (9-20) Glucose 278 H D (80-116) mg/dL Calcium 8.3 L (8.6-10.2) mg/dL Med Orders - Current: Current Medications Acetaminophen (Tylenol Extra Strength) 500 mg PO DAILY [facility] Last Admin: 02/18/20 09:40 Dose: 500 mg Documented by: Acetaminophen (Tylenol) 650 mg PO Q4H PRN PRN Reason: Pain Last Admin: 02/15/20 23:18 Dose: 650 mg Documented by: Acetaminophen (Tylenol Extra Strength) 1,000 mg PO BEDTIME [facility] Last Admin: 02/18/20 20:05 Dose: 1,000 mg Documented by: Ascorbic Acid (Vitamin C) 1,000 mg PO BEDTIME [facility] Last Admin: 02/18/20 20:05 Dose: 1,000 mg Documented by: Bisacodyl (Dulcolax) 5 mg PO DAILY PRN PRN Reason: Constipation Cholecalciferol (Vitamin D3) 25 mcg PO BEDTIME [facility] Last Admin: 02/18/20 20:05 Dose: 25 mcg Documented by: Coenzyme Q10 (Coenzyme Q10) 100 mg PO QPM [facility] Last Admin: 02/18/20 16:47 Dose: 100 mg Documented by: Docusate Sodium (Colace) 100 mg PO BID [facility] Last Admin: 02/18/20 20:06 Dose: 100 mg Documented by: Furosemide (Lasix) 20 mg IVPUSH DAILY@1400 [facility] Last Admin: 02/18/20 14:22 Dose: 20 mg Documented by: Furosemide (Lasix) 40 mg IVPUSH DAILY [facility] Last Admin: 02/19/20 09:08 Dose: 40 mg Documented by: Glipizide (Glucotrol) 2.5 mg PO DAILY [facility] Last Admin: 02/19/20 09:06 Dose: 2.5 mg Documented by: Isosorbide Mononitrate (Imdur) 30 mg PO DAILY@1600 [facility] Last Admin: 02/18/20 20:04 Dose: 30 mg Documented by: Isosorbide Mononitrate (Imdur) 60 mg PO DAILY [facility] Last Admin: 02/19/20 09:04 Dose: 60 mg Documented by: Metoprolol Succinate (Toprol Xl) 100 mg PO BEDTIME [facility] Last Admin: 02/18/20 20:05 Dose: 100 mg Documented by: Multivitamins/Minerals/Vitamin C (Tab-A-Zachary) 1 tab PO DAILY [facility] Last Admin: 02/19/20 09:04 Dose: 1 tab Documented by: Nitroglycerin (Nitrostat) 0.4 mg SL Q5M PRN PRN Reason: Chest Pain Non-Formulary Medication (Fluocinolone Acetonide [Fluocinolone Acetonide]) 4 drop EARBOTH ASDIRECTED PRN PRN Reason: Dizziness Non-Formulary Medication (Peppermint Oil Cap) 1 cap PO BEDTIME [facility] Last Admin: 02/15/20 20:52 Dose: Not Given Documented by: Ondansetron HCl (Zofran) 4 mg IVPUSH Q4H PRN PRN Reason: Nausea/Vomiting Polyethylene Glycol (Miralax) 17 gm PO DAILY PRN PRN Reason: Constipation Polyethylene Glycol (Miralax) 17 gm PO DAILY [facility] Last Admin: 02/19/20 09:02 Dose: 17 gm Documented by: Ranolazine (Ranexa) 1,000 mg PO BID [facility] Last Admin: 02/19/20 09:07 Dose: 1,000 mg Documented by: Senna/Docusate Sodium (Senna Plus) 1 tab PO BID PRN PRN Reason: Constipation Sitagliptin Phosphate (Januvia) 25 mg PO DAILY [facility] Last Admin: 02/19/20 09:05 Dose: 25 mg Documented by: Sodium Chloride (Saline Flush) 10 ml FLUSH ASDIRECTED PRN PRN Reason: flush med Triamcinolone Acetonide (Triamcinolone Acetonide 0.1% Crm) 0 gm TOP BID PRN PRN Reason: Rash Warfarin Sodium (Coumadin Sliding Scale) 1 each PO ASDIRECTED [facility] Discontinued Medications Docusate Sodium (Colace) 100 mg PO BID PRN PRN Reason: Constipation Furosemide (Lasix) 20 mg IVPUSH ONETIME ONE Stop: 02/16/20 09:01 Last Admin: 02/16/20 09:43 Dose: 20 mg Documented by: Furosemide (Lasix) 40 mg IVPUSH DAILY [facility] Furosemide (Lasix) 40 mg IVPUSH NOW ONE Stop: 02/16/20 16:19 Last Admin: 02/16/20 16:56 Dose: 40 mg Documented by: Furosemide (Lasix) 20 mg PO DAILY@1400 [facility] Last Admin: 02/17/20 15:03 Dose: 20 mg Documented by: Furosemide (Lasix) 60 mg PO DAILY [facility] Last Admin: 02/18/20 09:39 Dose: 60 mg Documented by: Furosemide (Lasix) 60 mg IVPUSH NOW ONE Stop: 02/18/20 16:53 Last Admin: 02/18/20 16:57 Dose: 60 mg Documented by: Sodium Chloride (Normal Saline) 1,000 mls @ 50 mls/hr IV ASDIRECTED [facility] Last Admin: 02/17/20 09:20 Dose: 50 mls/hr Documented by: Phytonadione 5 mg/ Sodium (Chloride) 50.5 mls @ 100 mls/hr IV NOW ONE Stop: 02/15/20 20:17 Last Admin: 02/15/20 20:38 Dose: 100 mls/hr Documented by: Isosorbide Mononitrate (Imdur) 90 mg PO DAILY [facility] Last Admin: 02/17/20 09:28 Dose: Not Given Documented by: Non-Formulary Medication (Ranolazine [Ranolazine Er]) 500 mg PO BID [facility] Last Admin: 02/16/20 15:53 Dose: Not Given Documented by: Ranolazine Er 500mg 0 each PO BID [facility] Last Admin: 02/16/20 13:31 Dose: 2 each Documented by: Warfarin Sodium (Coumadin) 2.5 mg PO ONETIME ONE Stop: 02/16/20 16:01 Last Admin: 02/16/20 16:48 Dose: 2.5 mg Documented by: Warfarin Sodium (Coumadin) 4 mg PO ONETIME ONE Stop: 02/17/20 16:01 Last Admin: 02/17/20 16:55 Dose: Not Given Documented by: Warfarin Sodium (Coumadin) 4 mg PO ONETIME ONE Stop: 02/17/20 16:46 Last Admin: 02/17/20 17:09 Dose: 4 mg Documented by: Warfarin Sodium 1 mg/ Warfarin (Sodium 5 mg) 6 mg PO ONETIME ONE Stop: 02/18/20 17:01 Last Admin: 02/18/20 16:54 Dose: 6 mg Documented by: Warfarin Sodium (Coumadin) Confirm Administered Dose 1 mg .ROUTE .STK-MED ONE Stop: 02/18/20 16:50 Last Admin: 02/18/20 16:57 Dose: Not Given Documented by: Warfarin Sodium (Coumadin) Confirm Administered Dose 5 mg .ROUTE .STK-MED ONE Stop: 02/18/20 16:50 Last Admin: 02/18/20 16:57 Dose: Not Given Documented by: - Exam General: Alert, Oriented, Cooperative, No Acute Distress Lungs: Clear to Auscultation (BUL), Normal Respiratory Effort, Decreased Breath Sounds, Crackles (very fine in bibasilar). No: Wheezing Cardiovascular: Regular Rate, Irregular Rhythm GI/Abdominal Exam: Soft, Non-Tender, No Distention (hypoactive to normal x 4), Abnormal Bowel Sounds (Female) Exam: Deferred Extremities: Pallor Sepsis Event Note - Evaluation Sepsis Screening Result: No Definite Risk - Focused Exam Vital Signs: Vital Signs Temp Temp Pulse Resp BP BP Pulse Ox 02/19/20 09:04 114/70 02/19/20 04:30 96.5 F L 66 16 103/67 100 02/19/20 01:20 67 18 125/71 100 02/19/20 00:00 02/18/20 23:48 97.4 F 64 18 112/64 99 Pulse Ox 02/19/20 09:04 02/19/20 04:30 02/19/20 01:20 02/19/20 00:00 99 02/18/20 23:48 - Problem List & Annotations (1) CHF exacerbation SNOMED Code(s): 105866243, 54491693650187 Code(s): I50.9 - HEART FAILURE, UNSPECIFIED Status: Acute Current Visit: No Qualifiers: Heart failure type: systolic Qualified Code(s): I50.23 - Acute on chronic systolic (congestive) heart failure Annotation/Comment:: Influenza negative. CT chest/abdomen/pelvis showed CHF with pulmonary edema, small pleural effusion, ascites and abdominal wall edema. Covid was negative on admission. EF 30% on last echo at [facility] 09/28/2017, will not repeat echo as that would not change treatment plan. (2) Elevated brain natriuretic peptide (BNP) level SNOMED Code(s): 506903174, 366874578 Code(s): R79.89 - OTHER SPECIFIED ABNORMAL FINDINGS OF BLOOD CHEMISTRY Status: Acute Current Visit: No Annotation/Comment:: Lasix 40 mg IV this morning, 20 mg IV this afternoon. Will change to oral once we know more definitive discharge. (3) LFT elevation SNOMED Code(s): 162454206, 552076408 Code(s): R79.89 - OTHER SPECIFIED ABNORMAL FINDINGS OF BLOOD CHEMISTRY Status: Acute Current Visit: Yes Annotation/Comment:: Not repeated since CT showed ascites, abdominal wall edema, pulmonary edema with pleural effusions all secondary to CHF. (4) Acute renal insufficiency SNOMED Code(s): 299123585 Code(s): N28.9 - DISORDER OF KIDNEY AND URETER, UNSPECIFIED Status: Acute Current Visit: No Annotation/Comment:: Cr 2.7 today, Sodium improved to 130. Lasix 40 mg daily and 20 mg in afternoon. She is eating and drinking so will continue to monitor her I&Os and adjust accordingly. (5) Declining functional status SNOMED Code(s): 430953239916888 Code(s): R53.81 - OTHER MALAISE Status: Acute Current Visit: No Annotation/Comment:: [place] going [place] [facility] so PT/OT no longer needed. (6) Weakness SNOMED Code(s): 44177296 Code(s): R53.1 - WEAKNESS Status: Acute Current Visit: No (7) Hyponatremia SNOMED Code(s): 86588881 Code(s): E87.1 - HYPO-OSMOLALITY AND HYPONATREMIA Status: Acute Current Visit: No Annotation/Comment:: sodium 130. (8) Ischemic cardiomyopathy SNOMED Code(s): 080106149 Code(s): I25.5 - ISCHEMIC CARDIOMYOPATHY Status: Chronic Current Visit: No (9) Palliative care status SNOMED Code(s): 725393996 Code(s): Z51.5 - ENCOUNTER FOR PALLIATIVE CARE Status: Chronic Current Visit: No (10) Afib SNOMED Code(s): 79270236 Code(s): I48.91 - UNSPECIFIED ATRIAL FIBRILLATION Status: Chronic Current Visit: No Qualifiers: Atrial fibrillation type: longstanding persistent Qualified Code(s): I48.11 - Longstanding persistent atrial fibrillation Annotation/Comment:: INR 1.53, Coumadin per pharmacy, had received Vitamin K on admission. Coumadin dose yesterday was 4 mg. (11) Chronic systolic congestive heart failure, NYHA class 3 SNOMED Code(s): 100067636, 895986566, 755405062 Code(s): I50.22 - CHRONIC SYSTOLIC (CONGESTIVE) HEART FAILURE Status: Chronic Current Visit: No (12) Constipation SNOMED Code(s): 52055477 Code(s): K59.00 - CONSTIPATION, UNSPECIFIED Status: Chronic Current Visit: Yes Annotation/Comment:: acute on chronic. Had bowel movement today, bowel sounds active. (13) Parkinson disease SNOMED Code(s): 99485093 Code(s): G20 - PARKINSON'S DISEASE Status: Chronic Current Visit: No (14) Chronic stable angina SNOMED Code(s): 682237553 Code(s): I20.8 - OTHER FORMS OF ANGINA PECTORIS Status: Chronic Current Visit: Yes (15) Diabetes mellitus type 2, diet-controlled SNOMED Code(s): 136053997477227, 640471692591263 Code(s): E11.9 - TYPE 2 DIABETES MELLITUS WITHOUT COMPLICATIONS Status: Chronic Current Visit: No (16) Hyperkalemia SNOMED Code(s): 93583572 Code(s): E87.5 - HYPERKALEMIA Status: Resolved Current Visit: Yes (17) Elevated INR SNOMED Code(s): 914267483 Code(s): R79.1 - ABNORMAL COAGULATION PROFILE Status: Resolved Current Visit: No Annotation/Comment:: - Problem List Review Problem List Initiated/Reviewed/Updated: Yes - My Orders Last 24 Hours: My Active Orders 02/18/20 08:50 Convert IV to Peripheral Lock [Convert IV to Saline Lock] [OM.PC] Routine 02/18/20 09:00 Isosorbide Mononitrate [Imdur] 60 mg PO DAILY 02/18/20 14:00 Furosemide [Lasix] 20 mg IVPUSH DAILY@1400 02/19/20 09:00 Furosemide [Lasix] 40 mg IVPUSH DAILY 02/19/20 09:08 Sodium Chloride 0.9% [Saline Flush] 10 ml FLUSH ASDIRECTED PRN 02/19/20 14:45 Insert Muniz Catheter [Insert Urinary Catheter] [OM.PC] Q24H 02/20/20 09:50 INR,PT,PROTHROMBIN TIME [COAG] DAILY - Plan Plan:: 1. CHF: Lasix 40 mg in am and 20 mg in afternoon. 2. TIERRA: Worse at 2.7. Drinking, no fluid restrictions at this time. Continue to diuresis for her CHF. 3. Discharge: [facility] referral made, may take her tomorrow, would need to repeat Covid test in am.
[2020-02-19] MEDS: Docusate Sodium 100 MG Cap PO SCH ×3 (09:21→21:41)
[2020-02-19] MEDS: Furosemide 20 MG/2 ML VIAL IVPUSH SCH (14:25)
[2020-02-19] MEDS ORDERED: Warfarin 2.5 MG Tab PO ONE (16:00)
[2020-02-19] MEDS: Ascorbic Acid 500 MG Tab PO SCH ×2 (20:23→21:42)
[2020-02-19] MEDS: Metoprolol Succinate 100 MG Tab.ER PO SCH (20:36)
[2020-02-19] MEDS: Cholecalciferol (Vitamin D3) 25 MCG Tab PO SCH ×2 (20:48→21:43)
[2020-02-20] MEDS ORDERED: Furosemide 40 MG Tab PO SCH (09:00)
--- NOTE | 2020-02-20 10:51 | PCM.PN ---
- General Info Date of Service: 02/20/20 Subjective Update: Divina has been sleeping more but when she is awake she is asking for water and something to eat. Output yesterday was 465 ml, had 150 ml out overnight. Her son asked for her vitamins to be stopped. She was taken off oxygen yesterday as she was 100% on 2L, desaturated to 91% overnight so was placed back on, she's 100% again this morning so removed. No pain this morning. - Patient Data Vitals - Most Recent: Last Vital Signs Temp 97.4 F 02/20/20 07:45 Pulse 62 02/20/20 07:45 Resp 18 02/20/20 07:45 BP 118/60 02/20/20 07:45 Pulse Ox 87 L 02/20/20 07:45 Weight - Most Recent: 181 lb I&O - Last 24 Hours: Intake & Output 02/19/20 02/20/20 02/20/20 22:59 06:59 14:59 Intake Total 50 40 Output Total 75 75 Balance -25 -35 Lab Results Last 24 Hours: Laboratory Results - last 24 hr 02/20/20 02/20/20 Range/Units 06:15 07:56 PT 34.3 H (9.0-11.1) sec INR 3.45 H (1.00-1.24) SARS-CoV-2 RNA (RYLEE) Negative (NEGATIVE) Med Orders - Current: Current Medications Acetaminophen (Tylenol Extra Strength) 500 mg PO DAILY [facility] Last Admin: 02/19/20 09:16 Dose: 500 mg Documented by: Acetaminophen (Tylenol) 650 mg PO Q4H PRN PRN Reason: Pain Last Admin: 02/15/20 23:18 Dose: 650 mg Documented by: Acetaminophen (Tylenol Extra Strength) 1,000 mg PO BEDTIME [facility] Last Admin: 02/19/20 21:42 Dose: Not Given Documented by: Bisacodyl (Dulcolax) 5 mg PO DAILY PRN PRN Reason: Constipation Docusate Sodium (Colace) 100 mg PO BID [facility] Last Admin: 02/19/20 21:41 Dose: Not Given Documented by: Furosemide (Lasix) 40 mg PO DAILY [facility] Furosemide (Lasix) 20 mg PO DAILY@1400 [facility] Glipizide (Glucotrol) 2.5 mg PO DAILY [facility] Last Admin: 02/19/20 09:06 Dose: 2.5 mg Documented by: Isosorbide Mononitrate (Imdur) 30 mg PO DAILY@1600 [facility] Last Admin: 02/19/20 16:13 Dose: 30 mg Documented by: Isosorbide Mononitrate (Imdur) 60 mg PO DAILY [facility] Metoprolol Succinate (Toprol Xl) 100 mg PO BEDTIME [facility] Last Admin: 02/19/20 20:36 Dose: Not Given Documented by: Nitroglycerin (Nitrostat) 0.4 mg SL Q5M PRN PRN Reason: Chest Pain Non-Formulary Medication (Fluocinolone Acetonide [Fluocinolone Acetonide]) 4 drop EARBOTH ASDIRECTED PRN PRN Reason: Dizziness Ondansetron HCl (Zofran) 4 mg IVPUSH Q4H PRN PRN Reason: Nausea/Vomiting Polyethylene Glycol (Miralax) 17 gm PO DAILY PRN PRN Reason: Constipation Polyethylene Glycol (Miralax) 17 gm PO DAILY [facility] Last Admin: 02/19/20 09:02 Dose: 17 gm Documented by: Ranolazine (Ranexa) 1,000 mg PO BID [facility] Last Admin: 02/19/20 21:41 Dose: Not Given Documented by: Senna/Docusate Sodium (Senna Plus) 1 tab PO BID PRN PRN Reason: Constipation Sitagliptin Phosphate (Januvia) 25 mg PO DAILY [facility] Last Admin: 02/19/20 09:05 Dose: 25 mg Documented by: Sodium Chloride (Saline Flush) 10 ml FLUSH ASDIRECTED PRN PRN Reason: flush med Last Admin: 02/19/20 14:25 Dose: 10 ml Documented by: Triamcinolone Acetonide (Triamcinolone Acetonide 0.1% Crm) 0 gm TOP BID PRN PRN Reason: Rash Warfarin Sodium (Coumadin Sliding Scale) 1 each PO ASDIRECTED [facility] Discontinued Medications Ascorbic Acid (Vitamin C) 1,000 mg PO BEDTIME [facility] Last Admin: 02/19/20 21:42 Dose: Not Given Documented by: Cholecalciferol (Vitamin D3) 25 mcg PO BEDTIME [facility] Last Admin: 02/19/20 21:43 Dose: Not Given Documented by: Coenzyme Q10 (Coenzyme Q10) 100 mg PO QPM [facility] Last Admin: 12/07/20 16:13 Dose: 100 mg Documented by: Docusate Sodium (Colace) 100 mg PO BID PRN PRN Reason: Constipation Furosemide (Lasix) 20 mg IVPUSH ONETIME ONE Stop: 02/16/20 09:01 Last Admin: 02/16/20 09:43 Dose: 20 mg Documented by: Furosemide (Lasix) 40 mg IVPUSH DAILY [facility] Furosemide (Lasix) 40 mg IVPUSH NOW ONE Stop: 02/16/20 16:19 Last Admin: 02/16/20 16:56 Dose: 40 mg Documented by: Furosemide (Lasix) 20 mg PO DAILY@1400 [facility] Last Admin: 02/17/20 15:03 Dose: 20 mg Documented by: Furosemide (Lasix) 60 mg PO DAILY [facility] Last Admin: 02/18/20 09:39 Dose: 60 mg Documented by: Furosemide (Lasix) 20 mg IVPUSH DAILY@1400 [facility] Last Admin: 02/19/20 14:25 Dose: 20 mg Documented by: Furosemide (Lasix) 40 mg IVPUSH DAILY [facility] Last Admin: 02/19/20 09:08 Dose: 40 mg Documented by: Furosemide (Lasix) 60 mg IVPUSH NOW ONE Stop: 02/18/20 16:53 Last Admin: 02/18/20 16:57 Dose: 60 mg Documented by: Sodium Chloride (Normal Saline) 1,000 mls @ 50 mls/hr IV ASDIRECTED [facility] Last Admin: 02/17/20 09:20 Dose: 50 mls/hr Documented by: Phytonadione 5 mg/ Sodium (Chloride) 50.5 mls @ 100 mls/hr IV NOW ONE Stop: 02/15/20 20:17 Last Admin: 02/15/20 20:38 Dose: 100 mls/hr Documented by: Isosorbide Mononitrate (Imdur) 90 mg PO DAILY [facility] Last Admin: 02/17/20 09:28 Dose: Not Given Documented by: Isosorbide Mononitrate (Imdur) 60 mg PO DAILY [facility] Last Admin: 02/19/20 09:04 Dose: 60 mg Documented by: Multivitamins/Minerals/Vitamin C (Tab-A-Zachary) 1 tab PO DAILY [facility] Last Admin: 02/19/20 09:04 Dose: 1 tab Documented by: Non-Formulary Medication (Peppermint Oil Cap) 1 cap PO BEDTIME [facility] Last Admin: 02/15/20 20:52 Dose: Not Given Documented by: Non-Formulary Medication (Ranolazine [Ranolazine Er]) 500 mg PO BID [facility] Last Admin: 02/16/20 15:53 Dose: Not Given Documented by: Ranolazine Er 500mg 0 each PO BID [facility] Last Admin: 02/16/20 13:31 Dose: 2 each Documented by: Warfarin Sodium (Coumadin) 2.5 mg PO ONETIME ONE Stop: 02/16/20 16:01 Last Admin: 02/16/20 16:48 Dose: 2.5 mg Documented by: Warfarin Sodium (Coumadin) 4 mg PO ONETIME ONE Stop: 02/17/20 16:01 Last Admin: 02/17/20 16:55 Dose: Not Given Documented by: Warfarin Sodium (Coumadin) 4 mg PO ONETIME ONE Stop: 02/17/20 16:46 Last Admin: 02/17/20 17:09 Dose: 4 mg Documented by: Warfarin Sodium 1 mg/ Warfarin (Sodium 5 mg) 6 mg PO ONETIME ONE Stop: 02/18/20 17:01 Last Admin: 02/18/20 16:54 Dose: 6 mg Documented by: Warfarin Sodium (Coumadin) Confirm Administered Dose 1 mg .ROUTE .STK-MED ONE Stop: 02/18/20 16:50 Last Admin: 02/18/20 16:57 Dose: Not Given Documented by: Warfarin Sodium (Coumadin) Confirm Administered Dose 5 mg .ROUTE .STK-MED ONE Stop: 02/18/20 16:50 Last Admin: 02/18/20 16:57 Dose: Not Given Documented by: Warfarin Sodium (Coumadin) 2.5 mg PO ONETIME ONE Stop: 02/19/20 16:01 Last Admin: 02/19/20 16:12 Dose: 2.5 mg Documented by: - Exam General: Alert, Oriented (person), Cooperative, No Acute Distress Lungs: Clear to Auscultation, Normal Respiratory Effort, Decreased Breath Sounds, Crackles (fine bibasilar). No: Wheezing Cardiovascular: Regular Rate, Irregular Rhythm GI/Abdominal Exam: Soft, Non-Tender, No Distention, Abnormal Bowel Sounds Sepsis Event Note - Evaluation Sepsis Screening Result: No Definite Risk - Focused Exam Vital Signs: Vital Signs Temp Pulse Resp BP Pulse Ox 02/20/20 07:45 97.4 F 62 18 118/60 87 L 02/20/20 00:00 97 F 65 22 H 123/83 99 - Problem List & Annotations (1) CHF exacerbation SNOMED Code(s): 041902532, 44451383674586 Code(s): I50.9 - HEART FAILURE, UNSPECIFIED Status: Acute Current Visit: No Qualifiers: Heart failure type: systolic Qualified Code(s): I50.23 - Acute on chronic systolic (congestive) heart failure Annotation/Comment:: Covid was negative on admission and negative again today. EF 30% on last echo at [place] 09/28/2017, will not repeat echo as that would not change treatment plan. (2) Elevated brain natriuretic peptide (BNP) level SNOMED Code(s): 232729389, 680174333 Code(s): R79.89 - OTHER SPECIFIED ABNORMAL FINDINGS OF BLOOD CHEMISTRY Status: Acute Current Visit: No Annotation/Comment:: Lasix 40 mg po this morning, 20 mg po this afternoon. Discharge tomorrow to [facility] will be admitted to Hospice there. (3) LFT elevation SNOMED Code(s): 140660101, 999070005 Code(s): R79.89 - OTHER SPECIFIED ABNORMAL FINDINGS OF BLOOD CHEMISTRY Status: Acute Current Visit: Yes (4) Acute renal insufficiency SNOMED Code(s): 017545350 Code(s): N28.9 - DISORDER OF KIDNEY AND URETER, UNSPECIFIED Status: Acute Current Visit: No (5) Declining functional status SNOMED Code(s): 432698782010394 Code(s): R53.81 - OTHER MALAISE Status: Acute Current Visit: No Annotation/Comment:: will be going to [facility] for end of life care so PT/OT no longer needed. (6) Weakness SNOMED Code(s): 18212651 Code(s): R53.1 - WEAKNESS Status: Acute Current Visit: No (7) Hyponatremia SNOMED Code(s): 93397985 Code(s): E87.1 - HYPO-OSMOLALITY AND HYPONATREMIA Status: Acute Current Visit: No (8) Ischemic cardiomyopathy SNOMED Code(s): 238525429 Code(s): I25.5 - ISCHEMIC CARDIOMYOPATHY Status: Chronic Current Visit: No (9) Palliative care status SNOMED Code(s): 608407737 Code(s): Z51.5 - ENCOUNTER FOR PALLIATIVE CARE Status: Chronic Current Visit: No (10) Afib SNOMED Code(s): 68516125 Code(s): I48.91 - UNSPECIFIED ATRIAL FIBRILLATION Status: Chronic Current Visit: No Qualifiers: Atrial fibrillation type: longstanding persistent Qualified Code(s): I48.11 - Longstanding persistent atrial fibrillation Annotation/Comment:: INR 2.65, Coumadin per pharmacy, hold dose today. (11) Chronic systolic congestive heart failure, NYHA class 3 SNOMED Code(s): 840223459, 628756095, 644688254 Code(s): I50.22 - CHRONIC SYSTOLIC (CONGESTIVE) HEART FAILURE Status: Chronic Current Visit: No (12) Constipation SNOMED Code(s): 63180077 Code(s): K59.00 - CONSTIPATION, UNSPECIFIED Status: Chronic Current Visit: Yes (13) Parkinson disease SNOMED Code(s): 96595379 Code(s): G20 - PARKINSON'S DISEASE Status: Chronic Current Visit: No (14) Chronic stable angina SNOMED Code(s): 274290672 Code(s): I20.8 - OTHER FORMS OF ANGINA PECTORIS Status: Chronic Current Visit: Yes (15) Diabetes mellitus type 2, diet-controlled SNOMED Code(s): 256219833637665, 135626926540949 Code(s): E11.9 - TYPE 2 DIABETES MELLITUS WITHOUT COMPLICATIONS Status: Chronic Current Visit: No (16) Hyperkalemia SNOMED Code(s): 65816237 Code(s): E87.5 - HYPERKALEMIA Status: Resolved Current Visit: Yes (17) Elevated INR SNOMED Code(s): 157548190 Code(s): R79.1 - ABNORMAL COAGULATION PROFILE Status: Resolved Current Visit: No Annotation/Comment:: - Problem List Review Problem List Initiated/Reviewed/Updated: Yes - My Orders Last 24 Hours: My Active Orders 02/19/20 Lunch Regular Diet [DIET] 02/19/20 11:00 Vital Signs [RC] 08,16,00 02/19/20 14:45 Insert [place]iz Catheter [Insert Urinary Catheter] [OM.PC] Q24H 02/20/20 09:00 Furosemide [Lasix] 40 mg PO DAILY Isosorbide Mononitrate [Imdur] 60 mg PO DAILY 02/20/20 14:00 Furosemide [Lasix] 20 mg PO DAILY@1400 - Plan Plan:: 1. CHF: Lasix 40 mg in am and 20 mg in afternoon. 2. Discharge: [facility] discharge tomorrow, Covid negative today.
[2020-02-20] MEDS ORDERED: Furosemide 20 MG Tab PO SCH (14:00)
[2020-02-20] MEDS: Docusate Sodium 100 MG Cap PO SCH ×2 (14:56→20:53)
[2020-02-20] MEDS: glipiZIDE 5 MG Tab PO SCH (14:57)
[2020-02-20] MEDS: Isosorbide Mononitrate 60 MG Tab.ER PO SCH (14:57)
[2020-02-20] MEDS: Polyethylene Glycol 3350 Powder 17 GM Packet PO SCH (14:58)
[2020-02-20] MEDS: Acetaminophen 500 MG Tab PO SCH ×2 (14:59→20:53)
[2020-02-20] MEDS: Isosorbide Mononitrate 30 MG Tab.ER PO SCH (17:00)
[2020-02-20] MEDS: Metoprolol Succinate 100 MG Tab.ER PO SCH (20:46)
--- NOTE | 2020-02-21 08:20 | PCM.DCSUM1 ---
Discharge Summary - Hospital Course HPI Initial Comments: Divina presented to the ED last night due to constipation for past 3-5 days and dry cough. She states she has chronic chest pain, feels more short of breath, has not turned up her oxygen, which she wears at home but felt like she should. Covid was negative on admission. She also c/o nausea but no vomiting. Denies any abdominal pain, fever,chills. Her son who is his POA and is in [place] right now want her to stay in the hospital and find senior care pl acement for her. The son said that he have a hard time looking for a senior care because of the Covid pandemic. She has chronic systolic congestive heart failure, last echo 09/29/2019 showed EF of 30%, her last Cardiology appointment this summer she declined any stress testing or angiogram and had discussed hospice. They increased her Imdur to 90 mg in am and 30 mg in the afternoon and also started her on Ranolazine 500 mg bid and recently increased to 1000 mg bid but patient had not started the new dose yet per home health. On coumadin for chronic atrial fibrillation, was found to have supratherapeutic INR of 6.02 in ER, BNP 42874, elevated AST/ALT 339, 444 respectively, Creatinine 2.7 on admission, 2.6 this morning. Flat & Upright abdominal x-ray done in ER. Corrected sodium for hyperglycemia was 130 this morning. Diagnosis: Stroke: No - Discharge Data Discharge Date: 02/21/20 ([facility]) Discharge Disposition: DC/Tfer to SNF 03 Condition: Stable - Referral to Home Health Date of Face to Face Encounter: 02/21/20 Reason for Homebound Status: [facility] Primary Care Physician: PCP None Skilled Need: Hospice for end stage CHF - Discharge Diagnosis/Problem(s) (1) CHF exacerbation SNOMED Code(s): 521310699, 35141539054397 ICD Code: I50.9 - HEART FAILURE, UNSPECIFIED Status: Acute Current Visit: No Problem Details: Covid was negative on admission and negative again today. EF 30% on last echo at [place] 09/28/2017, will not repeat echo as that would not change treatment plan. Qualifiers: Heart failure type: systolic Qualified Code(s): I50.23 - Acute on chronic systolic (congestive) heart failure (2) Elevated brain natriuretic peptide (BNP) level SNOMED Code(s): 045081770, 756916225 ICD Code: R79.89 - OTHER SPECIFIED ABNORMAL FINDINGS OF BLOOD CHEMISTRY Status: Acute Current Visit: No Problem Details: Discontinued Lasix due to decreased oral intake. Discharge today to [facility] will be admitted to Hospice there. (3) LFT elevation SNOMED Code(s): 326006466, 082202724 ICD Code: R79.89 - OTHER SPECIFIED ABNORMAL FINDINGS OF BLOOD CHEMISTRY Status: Acute Current Visit: Yes (4) Acute renal insufficiency SNOMED Code(s): 831284266 ICD Code: N28.9 - DISORDER OF KIDNEY AND URETER, UNSPECIFIED Status: Acute Current Visit: No (5) Declining functional status SNOMED Code(s): 515855995516354 ICD Code: R53.81 - OTHER MALAISE Status: Acute Current Visit: No Problem Details: will be going to [facility] for end of life care so PT/OT no longer needed. (6) Weakness SNOMED Code(s): 71706256 ICD Code: R53.1 - WEAKNESS Status: Acute Current Visit: No (7) Hyponatremia SNOMED Code(s): 27200803 ICD Code: E87.1 - HYPO-OSMOLALITY AND HYPONATREMIA Status: Acute Current Visit: No (8) Ischemic cardiomyopathy SNOMED Code(s): 602591555 ICD Code: I25.5 - ISCHEMIC CARDIOMYOPATHY Status: Chronic Current Visit: No (9) Palliative care status SNOMED Code(s): 737374713 ICD Code: Z51.5 - ENCOUNTER FOR PALLIATIVE CARE Status: Chronic Current Visit: No (10) Afib SNOMED Code(s): 17117861 ICD Code: I48.91 - UNSPECIFIED ATRIAL FIBRILLATION Status: Chronic Current Visit: No Problem Details: INR 2.65, Coumadin per pharmacy, hold dose today. 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 SNOMED Code(s): 910775034 ICD Code: I20.8 - OTHER FORMS OF ANGINA PECTORIS Status: Chronic Current Visit: Yes (15) Diabetes mellitus type 2, diet-controlled SNOMED Code(s): 293143988280092, 479740132154755 ICD Code: E11.9 - TYPE 2 DIABETES MELLITUS WITHOUT COMPLICATIONS Status: Chronic Current Visit: No (16) Hyperkalemia SNOMED Code(s): 87981474 ICD Code: E87.5 - HYPERKALEMIA Status: Resolved Current Visit: Yes (17) Elevated INR SNOMED Code(s): 552726046 ICD Code: R79.1 - ABNORMAL COAGULATION PROFILE Status: Resolved Current Visit: No Problem Details: - Patient Summary/Data Consults: Consultations 02/16/20 09:01 OT Evaluation and Treatment [CONS] Routine Please Evaluate and Treat. OT Reason for Consult: ADL's This query below is only for informational purposes and is not editable. Admission Diagnosis/Problem: Dehydration PT Evaluation and Treatment [CONS] Routine Please Evaluate and Treat. PT Reason for Consult: Ambulation This query below is only for informational purposes and is not editable. Admission Diagnosis/Problem: Dehydration Hospital Course: Divina was admitted for supratherapeutic INR, weakness, Acute renal insufficiency, dehydration, was also found to be in CHF exacerbation. BNP 85957. Had elevated liver functions, continued to elevate on repeat lab. Chest x-ray showed some fluid in fissure with pleural effusions. CT chest/abdomen/pelvis revealed pulmonary edema, small pleural effusions, no consolidation or infiltrate, ascites, abdominal wall edema all consistent with CHF exacerbation. Elevated liver functions due to liver congestion secondary to CHF. Urine output was hard to assess initially as she was incontinent so Muniz was placed. She initially had received NS IV fluids were discontinued when Chest x-ray reviewed, patient was drinking around 900 ml a day, Cr improved to 2.1. Had restarted NS at 50 ml/hr to keep vein open and switched to oral Lasix to try and not give too much fluids for her heart but a little bit more than oral intake for her kidneys. Fluids were stopped in the middle of night on Wednesday as she was having more coarse crackles throughout. Lasix changed to IV, having 665 ml out. Cr came up to 2.7. INR 3.65 yesterday so dose held, today's INR pending. Changed to oral Lasix yesterday as her oral intake decreased and had 465 ml out for the day. She has been sleeping a lot more but more awake and drinking in the afternoons and evenings. She has been utilizing Tylenol twice a day scheduled with 650 mg as needed, which she last used on evening. Discussed with family her condition daily over the weekend, recommended end of life care, they wanted to continue to diuresis and treat her until she could be moved to another facility so she could go on hospice but have family come visit as they were not able to care for her at her apartment with hospice. [facility] accepted the patient and hospice is able to admit to their care today. - Patient Instructions Diet: Regular Diet as Tolerated Activity: Bedrest Other/Special Instructions: Discharge to [facility] for end of life care. Admission to Hospice today. - Discharge Plan *PRESCRIPTION DRUG MONITORING PROGRAM REVIEWED*: Not Applicable *COPY OF PRESCRIPTION DRUG MONITORING REPORT IN PATIENT SAVITA: Not Applicable Home Medications: Home Meds Docusate Sodium 100 mg PO BID 03/14/19 [History] Fluocinolone Acetonide 4 drop EARBOTH ASDIRECTED PRN 03/14/19 [History] Metoprolol Succinate [Toprol XL 100mg] 100 mg PO BEDTIME 03/14/19 [History] Nitroglycerin 0.4 mg SL Q5M PRN 03/14/19 [History] Triamcinolone Acetonide [Triamcinolone Acetonide 0.1% Crm] 1 applic TOP BID PRN 03/14/19 [History] Warfarin [Coumadin] 5 mg PO SUTUWETHFRSA 03/14/19 [History] Acetaminophen [Tylenol Extra Strength] 1,000 mg PO BEDTIME 10/26/19 [History] Acetaminophen [Tylenol Extra Strength] 500 mg PO DAILY tablet 10/30/19 [Rx] bisacodyL [Dulcolax] 5 mg PO DAILY PRN tablet 10/30/19 [Rx] Warfarin [Coumadin] 2.5 mg PO MO 12/09/19 [History] Isosorbide Mononitrate [Imdur] 30 mg PO DAILY@1600 02/15/20 [History] Acetaminophen [Tylenol] 650 mg PO Q4H PRN tablet 02/21/20 [Rx] Isosorbide Mononitrate [Imdur] 60 mg PO DAILY #0 02/21/20 [Rx] Ranolazine [Ranolazine ER] 1,000 mg PO BID #0 02/21/20 [Rx] Warfarin Sliding Scale [Coumadin Sliding Scale] 1 each PO ASDIRECTED tablet 02/21/20 [Rx] Oxygen Therapy Mode: Nasal Cannula Oxygen Flow Rate (L/min): 1 Maintain SPO2% less than: 94 Maintain SpO2% greater than: 88 Patient Handouts: Constipation, Adult Forms: ED Department Discharge Referrals: Jacky Ryder MD [Physician] - - Discharge Summary/Plan Comment DC Time >30 min.: No - General Info Date of Service: 02/21/20 Subjective Update: Divina is sitting up in the wheelchair, reclined this morning. States she feels weak but wants to get out of here. Has some nausea but wanted her teeth back in. Has not received any Zofran since admission. Held Imdur this morning for her blood pressure. Functional Status: Reports: Pain Controlled - Patient Data Vitals - Most Recent: Last Vital Signs Temp 97.4 F 02/21/20 00:00 Pulse 68 02/21/20 00:00 Resp 20 02/21/20 00:00 BP 112/66 02/21/20 00:00 Pulse Ox 96 02/21/20 00:00 Weight - Most Recent: 181 lb I&O - Last 24 hours: Intake & Output 02/20/20 02/21/20 02/21/20 22:59 06:59 14:59 Intake Total 75 100 Output Total 50 75 Balance 25 25 Lab Results - Last 24 hrs: Laboratory Results - last 24 hr 02/20/20 Range/Units 07:56 SARS-CoV-2 RNA (RYLEE) Negative (NEGATIVE) Med Orders - Current: Current Medications Acetaminophen (Tylenol Extra Strength) 500 mg PO DAILY IFTIKHAR Last Admin: 02/20/20 14:59 Dose: Not Given Documented by: Acetaminophen (Tylenol) 650 mg PO Q4H PRN PRN Reason: Pain Last Admin: 02/15/20 23:18 Dose: 650 mg Documented by: Acetaminophen (Tylenol Extra Strength) 1,000 mg PO BEDTIME [facility] Last Admin: 02/20/20 20:53 Dose: 1,000 mg Documented by: Bisacodyl (Dulcolax) 5 mg PO DAILY PRN PRN Reason: Constipation Docusate Sodium (Colace) 100 mg PO BID [facility] Last Admin: 02/20/20 20:53 Dose: 100 mg Documented by: Isosorbide Mononitrate (Imdur) 30 mg PO DAILY@1600 [facility] Last Admin: 02/20/20 17:00 Dose: Not Given Documented by: Isosorbide Mononitrate (Imdur) 60 mg PO DAILY [facility] Last Admin: 02/20/20 14:57 Dose: Not Given Documented by: Metoprolol Succinate (Toprol Xl) 100 mg PO BEDTIME [facility] Last Admin: 02/20/20 20:46 Dose: Not Given Documented by: Nitroglycerin (Nitrostat) 0.4 mg SL Q5M PRN PRN Reason: Chest Pain Non-Formulary Medication (Fluocinolone Acetonide [Fluocinolone Acetonide]) 4 drop EARBOTH ASDIRECTED PRN PRN Reason: Dizziness Ondansetron HCl (Zofran) 4 mg IVPUSH Q4H PRN PRN Reason: Nausea/Vomiting Polyethylene Glycol (Miralax) 17 gm PO DAILY PRN PRN Reason: Constipation Ranolazine (Ranexa) 1,000 mg PO BID [facility] Last Admin: 02/20/20 20:51 Dose: Not Given Documented by: Senna/Docusate Sodium (Senna Plus) 1 tab PO BID PRN PRN Reason: Constipation Sodium Chloride (Saline Flush) 10 ml FLUSH ASDIRECTED PRN PRN Reason: flush med Last Admin: 02/19/20 14:25 Dose: 10 ml Documented by: Triamcinolone Acetonide (Triamcinolone Acetonide 0.1% Crm) 0 gm TOP BID PRN PRN Reason: Rash Warfarin Sodium (Coumadin Sliding Scale) 1 each PO ASDIRECTED [facility] Discontinued Medications Ascorbic Acid (Vitamin C) 1,000 mg PO BEDTIME [facility] Last Admin: 02/19/20 21:42 Dose: Not Given Documented by: Cholecalciferol (Vitamin D3) 25 mcg PO BEDTIME [facility] Last Admin: 02/19/20 21:43 Dose: Not Given Documented by: Coenzyme Q10 (Coenzyme Q10) 100 mg PO QPM [facility] Last Admin: 02/19/20 16:13 Dose: 100 mg Documented by: Docusate Sodium (Colace) 100 mg PO BID PRN PRN Reason: Constipation Furosemide (Lasix) 20 mg IVPUSH ONETIME ONE Stop: 02/16/20 09:01 Last Admin: 02/16/20 09:43 Dose: 20 mg Documented by: Furosemide (Lasix) 40 mg IVPUSH DAILY [facility] Furosemide (Lasix) 40 mg IVPUSH NOW ONE Stop: 02/16/20 16:19 Last Admin: 02/16/20 16:56 Dose: 40 mg Documented by: Furosemide (Lasix) 20 mg PO DAILY@1400 [facility] Last Admin: 02/17/20 15:03 Dose: 20 mg Documented by: Furosemide (Lasix) 60 mg PO DAILY [facility] Last Admin: 02/18/20 09:39 Dose: 60 mg Documented by: Furosemide (Lasix) 20 mg IVPUSH DAILY@1400 [facility] Last Admin: 02/19/20 14:25 Dose: 20 mg Documented by: Furosemide (Lasix) 40 mg IVPUSH DAILY [facility] Last Admin: 02/19/20 09:08 Dose: 40 mg Documented by: Furosemide (Lasix) 60 mg IVPUSH NOW ONE Stop: 02/18/20 16:53 Last Admin: 02/18/20 16:57 Dose: 60 mg Documented by: Furosemide (Lasix) 40 mg PO DAILY [facility] Last Admin: 02/20/20 14:58 Dose: Not Given Documented by: Furosemide (Lasix) 20 mg PO DAILY@1400 [facility] Last Admin: 02/20/20 14:59 Dose: Not Given Documented by: Glipizide (Glucotrol) 2.5 mg PO DAILY [facility] Last Admin: 02/20/20 14:57 Dose: Not Given Documented by: Sodium Chloride (Normal Saline) 1,000 mls @ 50 mls/hr IV ASDIRECTED [facility] Last Admin: 02/17/20 09:20 Dose: 50 mls/hr Documented by: Phytonadione 5 mg/ Sodium (Chloride) 50.5 mls @ 100 mls/hr IV NOW ONE Stop: 02/15/20 20:17 Last Admin: 02/15/20 20:38 Dose: 100 mls/hr Documented by: Isosorbide Mononitrate (Imdur) 90 mg PO DAILY [facility] Last Admin: 02/17/20 09:28 Dose: Not Given Documented by: Isosorbide Mononitrate (Imdur) 60 mg PO DAILY [facility] Last Admin: 02/19/20 09:04 Dose: 60 mg Documented by: Multivitamins/Minerals/Vitamin C (Tab-A-Zachary) 1 tab PO DAILY [facility] Last Admin: 02/19/20 09:04 Dose: 1 tab Documented by: Non-Formulary Medication (Peppermint Oil Cap) 1 cap PO BEDTIME [facility] Last Admin: 02/15/20 20:52 Dose: Not Given Documented by: Non-Formulary Medication (Ranolazine [Ranolazine Er]) 500 mg PO BID [facility] Last Admin: 02/16/20 15:53 Dose: Not Given Documented by: Ranolazine Er 500mg 0 each PO BID [facility] Last Admin: 02/16/20 13:31 Dose: 2 each Documented by: Polyethylene Glycol (Miralax) 17 gm PO DAILY [facility] Last Admin: 02/20/20 14:58 Dose: Not Given Documented by: Sitagliptin Phosphate (Januvia) 25 mg PO DAILY [facility] Last Admin: 02/20/20 14:57 Dose: Not Given Documented by: Warfarin Sodium (Coumadin) 2.5 mg PO ONETIME ONE Stop: 02/16/20 16:01 Last Admin: 02/16/20 16:48 Dose: 2.5 mg Documented by: Warfarin Sodium (Coumadin) 4 mg PO ONETIME ONE Stop: 02/17/20 16:01 Last Admin: 02/17/20 16:55 Dose: Not Given Documented by: Warfarin Sodium (Coumadin) 4 mg PO ONETIME ONE Stop: 02/17/20 16:46 Last Admin: 02/17/20 17:09 Dose: 4 mg Documented by: Warfarin Sodium 1 mg/ Warfarin (Sodium 5 mg) 6 mg PO ONETIME ONE Stop: 02/18/20 17:01 Last Admin: 02/18/20 16:54 Dose: 6 mg Documented by: Warfarin Sodium (Coumadin) Confirm Administered Dose 1 mg .ROUTE .STK-MED ONE Stop: 02/18/20 16:50 Last Admin: 02/18/20 16:57 Dose: Not Given Documented by: Warfarin Sodium (Coumadin) Confirm Administered Dose 5 mg .ROUTE .STK-MED ONE Stop: 02/18/20 16:50 Last Admin: 02/18/20 16:57 Dose: Not Given Documented by: Warfarin Sodium (Coumadin) 2.5 mg PO ONETIME ONE Stop: 02/19/20 16:01 Last Admin: 02/19/20 16:12 Dose: 2.5 mg Documented by: - Exam General: Reports: Alert, Oriented, Cooperative, No Acute Distress Lungs: Reports: Clear to Auscultation, Normal Respiratory Effort, Decreased Breath Sounds (bibasilar) Cardiovascular: Reports: Regular Rate, Irregular Rhythm GI/Abdominal Exam: Soft, No Distention, Tender (epigastric), Abnormal Bowel Sounds (hypoactive). No: Guarding, Rigid, Rebound (Female) Exam: Deferred
[2020-02-21] MEDS: Acetaminophen 500 MG Tab PO SCH (08:40)
[2020-02-21] MEDS: Isosorbide Mononitrate 60 MG Tab.ER PO SCH (08:40)
[2020-02-21] MEDS: Docusate Sodium 100 MG Cap PO SCH (08:40)
== END 2020-02-21 09:40 | DRG 682 ==
LOC: FB.ED 16:12 → FB.MS 19:51
PROVIDERS: ADMIT Emergency Medicine; ATTEND Family Medicine
DX: N17.9 Acute kidney failure, unspecified (principal); K59.00 Constipation, unspecified; I50.23 Acute on chronic systolic (congestive) heart failure; E87.1 Hypo-osmolality and hyponatremia; I48.11 Longstanding persistent atrial fibrillation; I69.354 Hemiplegia and hemiparesis following cerebral infarction affecting left non-dominant side; I48.91 Unspecified atrial fibrillation; I11.0 Hypertensive heart disease with heart failure; I50.9 Heart failure, unspecified; I13.0 Hypertensive heart and chronic kidney disease with heart failure and stage 1 through stage 4 chronic kidney disease, or unspecified chronic kidney disease; R18.8 Other ascites; R79.89 Other specified abnormal findings of blood chemistry; Z51.5 Encounter for palliative care; E11.9 Type 2 diabetes mellitus without complications; Z20.828 Contact with and (suspected) exposure to other viral communicable diseases; I25.5 Ischemic cardiomyopathy; K59.09 Other constipation; G20 Parkinson's disease; Z79.84 Long term (current) use of oral hypoglycemic drugs; E87.5 Hyperkalemia; R79.1 Abnormal coagulation profile; M19.90 Unspecified osteoarthritis, unspecified site; F41.9 Anxiety disorder, unspecified; F32.9 Major depressive disorder, single episode, unspecified; E66.9 Obesity, unspecified; N18.9 Chronic kidney disease, unspecified; E86.0 Dehydration; H40.9 Unspecified glaucoma; H35.30 Unspecified macular degeneration; E11.22 Type 2 diabetes mellitus with diabetic chronic kidney disease; Z88.0 Allergy status to penicillin; Z88.2 Allergy status to sulfonamides; Z79.01 Long term (current) use of anticoagulants; Z79.899 Other long term (current) drug therapy; I25.2 Old myocardial infarction; Z95.5 Presence of coronary angioplasty implant and graft; Z87.01 Personal history of pneumonia (recurrent); Z98.49 Cataract extraction status, unspecified eye; Z68.31 Body mass index [BMI] 31.0-31.9, adult
CPT/HCPCS: 36415; 51702; 71046; 71250; 74019; 74176; 80048; 80053; 83880; 84484; 85025; 85610; 87804; 87804-59; 93005; 97165-GO; 99285; 99285-25; A9270-GY; J1940; J3430; J7030; U0002